=== PATIENT | female | born 1950 | race Caucasian/White ===

== ENCOUNTER → 2017-12-03 15:38 | Outpatient (CLI) | payer BC, SELFPAY ==
[2017-12-03 16:59] LABS: Hematocrit 44.7 % (37-47); Hemoglobin 14.9 g/dl (12.0-15.0); Mean Corp Hgb Conc 33.3 g/gl (32-36); Mean Corpuscular Volume 93.1 fL (81-99); Mean Platelet Vol. 9.1 fl (6.2-12.0); Platelet Count 236 K/mm3 (150-450); RBC Distribution Width CV 13.5 % (11.6-14.6); RBC Distribution Width SD 46.2 fl (35.1-43.9); White Blood Count 5.9 K/mm3 (4.4-11.0)
[2017-12-03 17:07] LABS: Anion Gap 8 (5-15); BUN 14 mg/dL (7-18); Calcium,Total 9.1 mg/dL (8.5-10.1); Chloride 103 mmol/L (98-107); Creatinine, Serum 0.93 mg/dL (0.55-1.02); EST Glomerular Filtration Rate 64 mL/min (>60); Est Glom Filt Rate - Afr Amer 77 mL/min (>60); Glucose 88 mg/dL (74-106); Sodium Level 139 mmol/L (136-145)
[2017-12-03 17:19] LABS: Scan Indicated on CBC? Y/N NO
== END ==
PROVIDERS: Family Provider Nurse Practitioner; PCP Nurse Practitioner; Visit Provider Physician Assistant
DX: Z01.818 Encounter for other preprocedural examination (principal); I10 Essential (primary) hypertension
CPT/HCPCS: 36415; 80048; 85027

== ENCOUNTER → 2018-06-28 13:04 | Outpatient (CLI) | payer BC, SELFPAY ==
--- NOTE | 2018-06-28 13:06 | CDU_ITS ---
[id number] VL^CDU^Carotid Duplex Ultrasound [id number] TAG_START Cardiovascular Services Carotid Duplex Ultrasound [facility] [place] [id number] Ordering Physician: Rickey Sullivan TAG_ENDED TAG_START Name: MOISÉS PADILLA Study Date: 06/28/2018 01:08 PM Patient Location: [facility] : 1950 Gender: Female Age: 67 yrs Ethnicity: C TAG_ENDED Reason For Study: carotid artery disease Rt. Velocities/BP Lt. Velocities/BP Prox CCA 1274.0/13.4 cm/sec. Prox CCA 121.0/12.3 cm/sec. Mid CCA 85.6/15.2 cm/sec. Mid CCA 128.0/18.8 cm/sec. Dist CCA 103.0/14.7 cm/sec. Dist CCA 123.0/15.2 cm/sec. Prox ICA 141.0/14.9 cm/sec. Prox ICA 131.0/27.5 cm/sec. Mid ICA 95.6/21.7 cm/sec. Mid ICA 148.0/29.9 cm/sec. Dist ICA 79.2/14.6 cm/sec. Dist ICA 82.1/22.3 cm/sec. Rt. ICA/CCA = 141.0/85.6=1.6. Lt. ICA/CCA = 148.0/128.0=1.2. Prox ECA 103.0/8.79 cm/sec. Prox ECA 193.0/15.7 cm/sec. Rt. Vert. 31.7/6.19 cm/sec. Lt. Vert. 62.7/11.1 cm/sec. Right Extracranial There is heterogeneous, irregular atherosclerotic plaque noted in the right common carotid artery. There is homogeneous, smooth atherosclerotic plaque noted in the right internal carotid artery. There is homogeneous, smooth atherosclerotic plaque noted in the right external carotid artery. Antegrade flow is noted in the right vertebral artery. Left Extracranial There is heterogeneous, irregular atherosclerotic plaque noted in the left common carotid artery. There is heterogeneous, irregular atherosclerotic plaque noted in the left internal carotid artery. There is heterogeneous, smooth atherosclerotic plaque noted in the left external carotid artery. Antegrade flow is noted in the left vertebral artery. Procedure Carotid Duplex [id number]. Exam performed in department. 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 Smooth plague within the mid left common carotid artery. Calcific plague with shadowing at the proximal left internal carotid with 50-69% stenosis. Normal flow right external carotid Moderate disease left external carotid Patent and antegrade vertebrals bilaterally No change from 05/15/15 TAG_START TAG_ENDED Ordering Physician: Rickey Sulilvan Referring Physician: Rickey Sullivan Performed By: Luisa Gomez, ROLANDO, RVT
== END ==
PROVIDERS: Family Provider Nurse Practitioner; PCP Nurse Practitioner; Referring Provider Internal Medicine Cardiovascular Disease; Visit Provider Internal Medicine Cardiovascular Disease
DX: E78.00 Pure hypercholesterolemia, unspecified (principal); I65.29 Occlusion and stenosis of unspecified carotid artery
CPT/HCPCS: 93880

== ENCOUNTER → 2018-07-21 11:36 | Outpatient (CLI) | payer BC, SELFPAY ==
--- NOTE | 2018-07-21 11:39 | BD_ITS ---
STUDY: DUAL ENERGY X-RAY ABSORPTIOMETRY / DXA REASON FOR EXAM: Female, 67 years old. The patient is postmenopausal. Loss of height. TECHNIQUE: Bone Mineral Density (BMD) measurements of lumbar spine and bilateral hips were obtained. COMPARISON: Comparison is made with prior study dated May 01, 2015. FINDINGS: Lumbar Spine (L1-L4): g/cm2 (1.040) / T-score (-1.0) / Z-score (0.6) Findings are suggestive of normal bone density with a low fracture risk. Left Femur Total: g/cm2 (0.931) / T-score (0.6) / Z-score (0.8) Left Femoral Neck: g/cm2 (0.801) / T-score (-1.7) / Z-score (-0.1) Right Femur Total: g/cm2 (0.912) / T-score (-0.8) / Z-score (0.6) Right Femoral Neck: g/cm2 (0.841) / T-score (-1.4) / Z-score (0.2) The T-Scores on the most recent prior examination were: Lumbar Spine (L1-L4): There has been improvement of bone density since the previous examination. Left Femur Total: which represents a worsening of 1.7%. Right Femur Total: which represents a worsening of 3.3%. BD/Dexa Bone Density Study IMPRESSION: The patient is considered osteopenic as outlined below according to World Vini Organization (WHO) criteria with a moderate fracture risk. There has been worsening of bone density since the previous examination. Reference Information: The T-score is the number of standard deviations above or below the standard which is normal for young adults at their peak bone mineral density. The World Health Organization (WHO) interprets the T-scores as follows: Above -1 Normal bone density Between -1 and -2.5 Osteopenia Equal to / or below -2.5 Osteoporosis As a practical clinical guideline, osteopenia may be graded as follows: Mild -1 through -1.5 Moderate -1.6 through -2.0 Severe -2.1 through -2.4 The Z-score is the number of standard deviations above or below age-matched controls. A Z-score of less than -1.5 would be considered abnormal. References: 1. NIH Osteoporosis and Related Bone Diseases http://www.osteo.org 2. International Society for Clinical Densitometry http://www.iscd.org 3. National Osteoporosis Foundation http://www.nof.org Electronically Signed: Ethan Samuel MD at 8:51 EST Tel [phone], Service support ,
--- NOTE | 2018-07-21 11:39 | BI_ITS ---
MAMMOGRAPHY - BILATERAL SCREENING REASON FOR EXAM: Female, 67 years old. Routine annual screening examination. PERTINENT HISTORY: Non-contributory. TECHNIQUE: Digital bilateral breast ed (3D mammographic acquisition) in the CC and MLO projections. 2-D mediolateral oblique (MLO) and craniocaudad (CC) views of both breasts were obtained. CAD: Full Field Digital Mammography with Computer Added Detection was performed. COMPARISON: Comparison is made with prior study May 01, 2015 and June 20, 2016. FINDINGS: Breast Composition: The breasts are heterogeneously dense, which may obscure small masses. There are no dominant masses or suspicious calcifications. No other significant abnormalities are identified. There has been no significant change since the prior study. BI/SCREENING MAMM (CAD), BILAT IMPRESSION: Stable bilateral screening mammogram. Yearly follow-up mammogram recommended. (A) ASSESSMENT CATEGORY: BIRADS Category 1: Negative. A letter regarding these results will be sent to the patient by the facility within 30 days. Approximately 10% of breast cancers are not detected by mammography. A normal mammogram should not delay biopsy of a clinically suspicious abnormality. [id number] Electronically Signed: Ethan Samuel MD at 15:22 EST Tel [phone], Service support ,
== END ==
PROVIDERS: Family Provider Nurse Practitioner; PCP Nurse Practitioner; Referring Provider Nurse Practitioner; Visit Provider Nurse Practitioner
DX: Z12.31 Encounter for screening mammogram for malignant neoplasm of breast (principal); Z78.0 Asymptomatic menopausal state
CPT/HCPCS: 77063; 77067; 77080

== ENCOUNTER 2018-10-17 16:31 | Inpatient (IN) | payer BC, MEDICARE, SELFPAY ==
[2018-10-17] VITALS (14 sets, daily range): BP systolic 86–155; BP diastolic 44–96; PULSE 74–111; RESP 14–24; TEMP 35.9–37.3; O2SAT 86–98; BMI 25.0; BMI 24.3
--- NOTE | 2018-10-17 16:50 | EKG12_ITS ---
Test Reason : CP Blood Pressure : / mmHG Vent. Rate : 097 BPM Atrial Rate : 097 BPM P-R Int : 112 ms QRS Dur : 136 ms QT Int : 392 ms P-R-T Axes : 070 004 154 degrees QTc Int : 497 ms Normal sinus rhythm Left bundle branch block Abnormal ECG Confirmed by JARRETT PARMAR, [place] ([id number]), metropolitan editor ADIS MARLEY ([id number]) on 10/19/2018 9:05:43 AM Referred By: Confirmed By:[place] FARIAS MD
--- NOTE | 2018-10-17 16:53 | ED.VISSUMM ---
- ER Visit Summary Date of Service: 10/17/18 Chief Complaint: Chest pain and shortness of breath History of Present Illness: The patient is a 68 F who presents with chest pain or shortness of breath that began yesterday. Patient states she feels tightness across her chest. Patient states the pain started in her back and radiated around to the left side of her chest. Patient admits to some nausea. Patient also admits to an episode of diaphoresis last night. Patient admits to a cough but denies any sputum production. Patient states she also felt some lightheadedness and dizziness last night. Patient denies any fevers or chills. Physical Examination: Vital signs are stable. Patient is afebrile. Patient is in no acute distress. Oral mucosa is pink and moist. Neck is supple. Trachea is midline. There is no JVD noted. Heart was regular rate and rhythm. Lungs rhonchi in the bases bilaterally. Abdomen is soft. Bowel sounds are normal. There is mild lower abdominal tenderness. There is no rebound or guarding noted. Skin is warm dry. Cranial nerves II through XII are intact. There are no focal motor or sensory deficits noted. The remaining physical exam is within normal limits. Test Results: EKG showed normal sinus rhythm with a rate of 97. There is a left bundle branch block pattern noted. There are no acute ST or T wave changes noted. It was unchanged compared to previous EKG dated 08/17/2017. CBC shows a white blood cell count of 11.6. Creatinine was slightly elevated at 1.2. Troponin was normal. The remaining labs were essentially within normal limits. Chest x-ray shows a right basilar infiltrate. Emergency Department Course and Treatment: Patient was given a dose of Levaquin. Patient was also given aspirin and sublingual nitroglycerin for her chest pain. The nitroglycerin made no change in her pain. Patient was given a dose of morphine. Case was discussed with Dr. Richey. She will be in to evaluate the patient and admit the patient to her service. Patient and family understood and were agreeable with the plan. All questions were answered. Disposition: Admit to hospital Impression: 1. Community-acquired pneumonia 2. Hypoxia This note was generated with sourceasyation software. It may contain incorrect words, spelling, and punctuation that were not noted in review of the chart prior to signing ED Disposition - Plan for ED Patient: Disposition: Acute Care Hospital [facility] Diagnosis: Community acquired pneumonia, Hypoxia Referrals: Isatu Benson NP-C [Primary Care Provider] -
--- NOTE | 2018-10-17 16:58 | ED.DCSUM_ITS ---
- ER Visit Summary Date of Service: 10/17/18 Chief Complaint: Chest pain and shortness of breath History of Present Illness: The patient is a 68 F who presents with chest pain or shortness of breath that began yesterday. Patient states she feels tightness across her chest. Patient states the pain started in her back and radiated around to the left side of her chest. Patient admits to some nausea. Patient also admits to an episode of diaphoresis last night. Patient admits to a cough but denies any sputum production. Patient states she also felt some lightheadedness and dizziness last night. Patient denies any fevers or chills. Physical Examination: Vital signs are stable. Patient is afebrile. Patient is in no acute distress. Oral mucosa is pink and moist. Neck is supple. Trachea is midline. There is no JVD noted. Heart was regular rate and rhythm. Lungs rhonchi in the bases bilaterally. Abdomen is soft. Bowel sounds are normal. There is mild lower abdominal tenderness. There is no rebound or guarding noted. Skin is warm dry. Cranial nerves II through XII are intact. There are no focal motor or sensory deficits noted. The remaining physical exam is within normal limits. Test Results: EKG showed normal sinus rhythm with a rate of 97. There is a left bundle branch block pattern noted. There are no acute ST or T wave changes noted. It was unchanged compared to previous EKG dated 08/17/2017. CBC shows a white blood cell count of 11.6. Creatinine was slightly elevated at 1.2. Troponin was normal. The remaining labs were essentially within normal limits. Chest x-ray shows a right basilar infiltrate. Emergency Department Course and Treatment: Patient was given a dose of Levaquin. Patient was also given aspirin and sublingual nitroglycerin for her chest pain. The nitroglycerin made no change in her pain. Patient was given a dose of morphine. Case was discussed with Dr. Richey. She will be in to evaluate the patient and admit the patient to her service. Patient and family understood and were agreeable with the plan. All questions were answered. Disposition: Admit to hospital Impression: 1. Community-acquired pneumonia 2. Hypoxia This note was generated with KartMeation software. It may contain incorrect words, spelling, and punctuation that were not noted in review of the chart prior to signing ED Disposition - Plan for ED Patient: Disposition: Acute Care Hospital [facility] Diagnosis: Community acquired pneumonia, Hypoxia Referrals: Isatu Benson NP-C [Primary Care Provider] -
[2018-10-17] MEDS: Albuterol 2.5 MG/3 ML VIAL.NEB. INHALATION (17:05)
[2018-10-17] MEDS: Aspirin 81 MG TAB.CHEW 324 MG PO (17:10)
[2018-10-17 17:11] LABS: Absolute Lymphocyte Count 1.17 X10^3/ul (0.83-4.51); Absolute Neutrophil Count 9.1 X10^3/uL (2.0-7.7); Basophil# 0.03 X10^3/uL; Basophil% 0.3 % (0-1); Eosinophils% 1.7 % (0-5); Hematocrit 43.9 % (37-47); Hemoglobin 14.5 g/dl (12.0-15.0); Lymphocyte # 1.17 X10^3/ul (4.0); Lymphocyte % 10.1 % (19-41); Mean Corpuscular Hgb 30.7 pg (27.0-32.0); Mean Corpuscular Volume 92.8 fL (81-99); Mean Platelet Vol. 9.3 fl (6.2-12.0); Monocyte# 1.09 X10^3/uL; Monocyte% 9.4 % (0-10); Neutrophil # 9.11 X10^3/uL (2.7-7.7); Neutrophil % 78.2 % (47-70); Platelet Count 228 K/mm3 (150-450); RBC Distribution Width CV 13.1 % (11.6-14.6); RBC Distribution Width SD 44.4 fl (35.1-43.9); Red Blood Count 4.73 M/mm3 (4.2-5.4); White Blood Count 11.6 K/mm3 (4.4-11.0)
[2018-10-17 17:14] LABS: POSITIVE COUNT NO; POSITIVE DIFFERENTIAL NO; POSITIVE MORPHOLOGY NO
[2018-10-17 17:19] LABS: Anion Gap 9 (5-15); BUN 16 mg/dL (7-18); BUN/Creat Ratio 13.3 RATIO (10-20); Chloride 104 mmol/L (98-107); EST Glomerular Filtration Rate 47 mL/min (>60); Est Glom Filt Rate - Afr Amer 57 mL/min (>60); Estimated Creatinine Clearance 41.42 ml/min; Glucose 104 mg/dL (74-106); Sodium Level 137 mmol/L (136-145)
--- NOTE | 2018-10-17 17:20 | RAD_ITS ---
STUDY: X-RAY CHEST REASON FOR EXAM: Female, 68 years old. Pain. TECHNIQUE: PA and lateral views of the chest. COMPARISON: March 09, 2017 FINDINGS: There is a paucity of lung markings within the mid and upper lung consistent with emphysema. There are stable prominent interstitial markings. There are nonspecific right basilar opacities. There is a new 1.2 cm left basilar nodular opacity. There is a stable granuloma within the right upper lung. Normal size heart. Normal mediastinum and danii. Normal visualized pulmonary arteries. There is atherosclerotic calcification of the aortic arch with tortuosity. Normal visualized thoracic spine. Normal visualized ribs, clavicles, and shoulders. There are splenic granulomas noted within the visualized upper abdomen. RAD/Chest PA and Lateral IMPRESSION: Nonspecific right basilar opacities may be secondary to underlying edema and/or pneumonia. Indeterminate 1.2 cm left basilar nodular opacity, this may be secondary to a confluence of shadows however consider CT for further characterization for cannot exclude a pulmonary nodule. Emphysema. Electronically Signed: Deepa Bee MD at 17:54 EST Tel , Service support ,
[2018-10-17 18:21] LABS: Bacteria 0 SEEN /hpf (None Seen)
[2018-10-17] MEDS: Morphine 2 MG/ML Syringe IV (18:21)
[2018-10-17 18:37] LABS: Color, Urine Yellow (Yellow); Glucose, Dipstick Normal (Normal); Ketone-Dipstick 15 mg/dl (Negative); Leukocyte Esterase-Dipstick 500 /ul (Negative); Nitrite-Dipstick Negative (Negative); Occult Blood-Urine 25 /ul (Negative); Protein-Dipstick 15 mg/dl (Negative); Urine Bilirubin Dipstick Negative (Negative); Urine Clarity Sl. Cloudy (Clear); Urine Urobilinogen 1 mg/dl (Normal)
[2018-10-17 19:40] LABS: Squamous Epithelial Cells - UA 0-5 SEEN /hpf (5-10)
[2018-10-17 19:41] LABS: Mucous, Urine 1+ /hpf (<or=2+); Red Blood Cells-Urine 0-5 SEEN /hpf (0-5); Transitional Epithelial - Ur 0-5 SEEN /hpf (0-5); White Blood Cells 0-5 SEEN /hpf (0-5)
--- NOTE | 2018-10-17 20:19 | PCM.HP.STD ---
Problem List (1) Community acquired pneumonia Status: Acute Qualifiers: Laterality: left Lung location: lower lobe of lung Qualified Code(s): J18.1 - Lobar pneumonia, unspecified organism (2) Hypoxia Status: Acute (3) HTN (hypertension) Status: Chronic Qualifiers: Hypertension type: essential hypertension Qualified Code(s): I10 - Essential (primary) hypertension (4) SABIHA (obstructive sleep apnea) Status: Chronic (5) Osteoarthritis Status: Chronic Qualifiers: Osteoarthritis location: unspecified site (6) Anxiety and depression Status: Chronic (7) History of carotid endarterectomy Status: Resolved Comment: right (8) Carotid artery stenosis Status: Chronic Qualifiers: Laterality: right Qualified Code(s): I65.21 - Occlusion and stenosis of right carotid artery; I65.21 - Occlusion and stenosis of right carotid artery; I65.21 - Occlusion and stenosis of right carotid artery (9) Hyperlipidemia Status: Chronic Qualifiers: Hyperlipidemia type: pure hypercholesterolemia Qualified Code(s): E78.00 - Pure hypercholesterolemia, unspecified; E78.00 - Pure hypercholesterolemia, unspecified; E78.00 - Pure hypercholesterolemia, unspecified; E78.0 - Pure hypercholesterolemia (10) Chronic obstructive lung disease Status: Chronic Qualifiers: Chronic bronchitis type: unspecified (11) Left bundle branch block Status: Chronic (12) Tobacco user Status: Chronic History of Present Illness Date of Admission: 10/17/18 Chief Complaint: Chest tightness, worse with increased respiratory effort The patient is a 68 y/o F w/ PMHx: CKD stage III, Chronic COPD w/ Tobacco use, SABIHA, GERD, Chronic LBBB, History of thyroid resection w/ resultant Hypothyroidism, Anxiety and Depression, HTN, HLD, OA, Hx recurrent UTIs, Carotid disease s/p CEA, CAD without PCI who presents to the [facility] ED on 10/17/18 with history of ongoing progressively worsening dyspnea, occasional cough but scant sputum, chest tightness and discomfort anteriorly and posteriorly along the bra line which she states is worse with increased respiratory effort and certain movements with associated chills and possibly subjective fevers times 3-4 days. Patient does state that she has been wheezing intermittently in addition to nausea without emesis and decreased appetite over the last 24 hours as well as loose morning stool for the last 3-4 days. Workup in the ED included initially noted 86% on room air and with attempted ambulation patient dropped to 80%, T 98, heart rate 95, BP 108/52, respiratory rate 14, CBC with W BC 11.6, heme globin 14.5, platelet 228 with left shift, BMP with BUN/Cr 16/1.20 (baseline Cr 0.9-1.1), trop < 0.015, UA w/ evidence dehydration otherwise not marked appearing, chest x-ray with nonspecific right basilar opacities possibly secondary to pneumonia, indeterminate 1.2 similar left basilar nodular opacity, EKG w/ without acute evidence of ischemia. In the ED patient administered Levaquin, albuterol, aspirin, morphine, sublingual nitroglycerin. Past Medical History Past Medical History (Chronic Problems): Chronic Problems (Last Reviewed 06/11/18 @ 13:26 by Carolann Navarro) HTN (hypertension) (Chronic) SABIHA (obstructive sleep apnea) (Chronic) Osteoarthritis (Chronic) Anxiety and depression (Chronic) Carotid artery stenosis (Chronic) Hyperlipidemia (Chronic) Chronic obstructive lung disease (Chronic) Left bundle branch block (Chronic) Tobacco user (Chronic) Medical History: Medical History (Last Reviewed 06/11/18 @ 13:26 by Carolann Navarro) Carotid artery stenosis (Chronic) I65.29 Hyperlipidemia (Chronic) E78.5 Chronic obstructive lung disease (Chronic) J44.9 Left bundle branch block (Chronic) I44.7 Tobacco user (Chronic) Z72.0 Allergies azithromycin [From Zithromax] Allergy (Verified 06/11/18 13:23) Hives cortisone [Cortisone] Allergy (Verified 06/11/18 13:23) Swelling erythromycin base [Erythromycin Base] Allergy (Verified 06/11/18 13:23) Other Home Medications: Ambulatory Orders Medication Instructions Recorded ALPRAZolam [Xanax] 0.25 mg PO BID PRN PRN 10/08/13 Escitalopram Oxalate [Lexapro] 20 mg PO DAILY 10/08/13 Ezetimibe [Zetia] 10 mg PO DAILY 10/08/13 Aspirin [Aspirin, Baby] 162 mg PO DAILY@0800 05/16/15 Omeprazole [Prilosec] 20 mg PO DAILY 12/04/15 albuterol sulfate 90 mcg/actuation 90 mcg INHALATION ONCE 08/17/17 breath activated powder inhaler metoprolol succinate ER 25 mg 12.5 mg PO QDAY tab 08/17/17 tablet,extended release 24 hr tiotropium bromide 18 mcg capsule 1 cap INHALATION QDAY 08/17/17 with inhalation device cholecalciferol (vitamin D3) 10,000 unit PO DAILY 06/11/18 10,000 unit tablet levothyroxine 88 mcg tablet 88 mcg PO DAILY 06/11/18 Surgical History: Surgical History (Last Reviewed 06/11/18 @ 13:26 by Carolann Navarro) History of carotid endarterectomy (Resolved) Onset Date: ~2012 Z98.890 right History of sinus surgery Z98.890 Surgical History: - - BL thumb tendinitis surgery, thyroid resection, cholecystectomy, appendectomy, hysterectomy, R CEA, partial colon resection. Psychiatric History: Anxiety, Depression [employer] History: No pertinent [employer] history Lives: With Family - Lives with her daughter. Smoking Status: Current every day smoker Tobacco Use: Cigarettes - 1/2 ppd tobacco usage. Alcohol: None Drugs: None - *Family History Maternal History Items: Cancer - Maternal family history of leiomyosarcoma. Paternal History Items: Cancer - Father with a history of lymphoma. Review of Systems Constitutional: Reports: Anorexia, Chills, Fever, Malaise, Weakness, Fatigue HEENT: Denies: Head Aches, Sinus Congestion, Sinus Drainage Cardiovascular: Reports: Chest Pain, Chest Tightness, Heaviness. Denies: Chest Pressure, Light Headedness, Orthopnea, Palpitations, Syncope Respiratory: Reports: Cough, Pleuritic Pain, Shortness of Breath, Shortness of breath at rest, Shortness of breath upon exertion, Sputum production, Wheezing Gastrointestinal: Reports: Diarrhea, Nausea Genitourinary: Denies: Dysuria Musculoskeletal: Reports: Back Pain, Joint Pain, Shoulder Pain Skin: Denies: Rash, Wounds Neurological: Denies: Numbness, Tingling, Focal weakness Psychiatric: Reports: Anxiety, Depression Hematologic/ Lymphatic: Denies: Easy Bruising, Easy Bleeding VTE Information - Inpt Only VTE Present on Admission: No VTE Mechan Device Prophylaxis: SCD's VTE Pharm Prophylaxis ordered?: Yes Patient Problems: Active and Suspected Problems (Last Reviewed 06/11/18 @ 13:26 by Carolann Navarro) Community acquired pneumonia (Acute) Hypoxia (Acute) Subjective: Seated upright in the ED, does not appear in distress, hypoxia resolved with minimal O2 supplementation however currently at rest. Objective: Physical Examination: General: awake, alert, oriented x 3 and cooperative, seated upright in the ED bed in no overt apparent distress. Skin: normal color, turgor, no icterus, cyanosis. HEENT: AT/NC, EOMI, PERRLA, mildly dry MM, no carotid bruits or JVD noted. Lungs: Severely diffusely diminished breath sounds, poor effort, no rales, rhonchi or wheezing, hypoxia currently resolved with minimal oxygen supplementation, mildly increased respiratory rate. Heart: Regular rate and rhythm; no gallop, rub audible, notes chest discomfort with requested increased respiratory effort. Abdomen: soft, NTTP, ND, normal BS, no HSM. Extremities: no cyanosis, clubbing, or edema. Neurological: patient awake, alert, oriented x 3; cognitive function intact; pupils equally reactive to light and accomodation; cranial nerves II-XII grossly normal, moving all 4 extremities, no focal deficits, strength moderately to severely globally decreased secondary to acute presentation. Psychiatric: affect appears fatigued, no acute evidence of depressive or anxiety feelings. - Physical Exam Vital Signs Temp Pulse Resp BP Pulse Ox 98.0 F 102 H 20 H 111/80 92 10/17/18 18:08 10/17/18 18:08 10/17/18 18:08 10/17/18 18:08 10/17/18 18:08 Oxygen Flow Rate (L/min) 2 Oxygen Delivery Method Nasal Cannula Weight: 154 lb 15.759 oz Body Mass Index (BMI) 25.0 Laboratory Tests Past 24 Hrs 10/17/18 10/17/18 10/17/18 16:35 16:35 18:06 WBC 11.6 H RBC 4.73 Hgb 14.5 Hct 43.9 MCV 92.8 MCH 30.7 MCHC 33.0 RDW 13.1 RDW Differential 44.4 H Plt Count 228 MPV 9.3 Immature Gran % (Auto) 0.300 Neut % (Auto) 78.2 H Lymph % (Auto) 10.1 L [place] % (Auto) 9.4 Eos % (Auto) 1.7 Baso % (Auto) 0.3 Absolute Neuts (auto) 9.1 H Absolute Lymphs (auto) 1.17 Total Counted Not Reportable Sodium 137 Potassium 4.0 Chloride 104 Carbon Dioxide 24.0 Anion Gap 9 BUN 16 Creatinine 1.20 H Estim Creat Clear Calc 41.42 Est GFR (MDRD) Af Amer 57 L Est GFR (MDRD) Non-Af 47 L BUN/Creatinine Ratio 13.3 Glucose 104 Calcium 9.0 Troponin I < 0.015 Urine Color Yellow Urine Clarity Sl. Cloudy Urine pH 5.0 Ur Specific [place] 1.020 Urine Protein 15 H Urine Glucose (UA) Normal Urine Ketones 15 H Urine Occult Blood 25 H Urine Nitrite Negative Urine Bilirubin Negative Urine Urobilinogen 1 H Ur Leukocyte Esterase 500 H Urine RBC 0-5 SEEN Urine WBC 0-5 SEEN Ur Squamous Epith Cells 0-5 SEEN Ur Transition Epith Cell 0-5 SEEN Urine Bacteria 0 SEEN Urine Mucus 1+ Assessment/Plan All Active Problems (Last Reviewed 06/11/18 @ 13:26 by Carolann Navarro) Community acquired pneumonia (Acute) Hypoxia (Acute) History of carotid endarterectomy (Resolved ~2012) Abdominal pain (Acute) The patient is a 68 y/o F w/ PMHx: CKD stage III, Chronic COPD w/ Tobacco use, SABIHA, GERD, Chronic LBBB, History of thyroid resection w/ resultant Hypothyroidism, Anxiety and Depression, HTN, HLD, OA, Hx recurrent UTIs, Carotid disease s/p CEA, CAD without PCI who presents to the [facility] ED on 10/17/18 with history of ongoing progressively worsening dyspnea, occasional cough but scant sputum, chest tightness and discomfort anteriorly and posteriorly along the bra line which she states is worse with increased respiratory effort and certain movements with associated chills and possibly subjective fevers times 3-4 days. (1) Community Acquired Pneumonia w/ associated Hypoxia w/ Acute on Chronic COPD Exacerbation: Workup in the ED included T 98, heart rate 95, BP 108/52, respiratory rate 14, 98% on room air, CBC with W BC 11.6, heme globin 14.5, platelet 228 with left shift, BMP with BUN/Cr 16/1.20 (baseline Cr 0.9-1.1), trop < 0.015, UA w/ evidence dehydration otherwise not marked appearing, chest x-ray with nonspecific right basilar opacities possibly secondary to pneumonia, indeterminate 1.2 similar left basilar nodular opacity, EKG w/ without acute evidence of ischemia. Will admit to NC with telemetry, maintain on oxygen with wean as tolerated to room air, continue ATC duonebs, PRN albuterol, initiate solumedrol 40 mg IV q 8 given patient reported wheezing although examination with no wheezing but no marked air movement noted, maintained on IV Levaquin given allergies to cover atypical as well, HOB, IS parameters w/ pending sputum cultures, respiratory viral panel and urine antigens. Bld cx x 2 obtained in the ED. Will obtain AM oxygenation trial for discharge planning daily. (2) Incidental Pulmonary Nodule: Chest x-ray with nonspecific right basilar opacities possibly secondary to pneumonia, indeterminate 1.2 similar left basilar nodular opacity, given history and prolonged tobacco use, CT chest ordered. (3) Chest Pain: Secondary to #1, atypical, pleuritic, EKG in ED without acute evidence of ischemia, chest x-ray with nonspecific right basilar opacities possibly secondary to pneumonia, indeterminate 1.2 similar left basilar nodular opacity, trop normal x 1. Will place on a monitored bed to assure no acute myocardial infarction with serial cardiac enzymes and EKGs. Continue treatment as noted #1. ASA, NG, morphine. (4) Carotid Disease, CAD: s/p R CEA, no history PCI, maintain on asa, BB, not on statin, FLP in AM. (5) Tobacco Abuse: Encouraged cessation, inpatient consultation per RT, NR if desired. (6) Hypertension: Continue home regimen including metoprolol, PRN hydralazine. (7) Hyperlipidemia: Continue home Zetia regimen, not on statin, FLP in AM. (8) Anxiety and Depression: Continue home Lexapro and Xanax regimen. (9) Hypothyroidism: s/p prior Thyroid resection. Continue home synthroid regimen. (10) SABIHA: CPAP q HS. (11) GERD: PPI. (12) DVT Prophylaxis: SCDs, lovenox.
[2018-10-17] MEDS: levoFLOXacin IV 750 MG/150 ML BAG 100 MG IV (20:45)
[2018-10-17] MEDS: 0.9% Normal Saline 1,000 ML 125 ML IV (22:19)
[2018-10-17] MEDS: guaiFENesin 1,200 MG Tablet 1200 MG PO (22:50)
[2018-10-17] MEDS: 0.9% NaCl Peripheral Flush Adult/Peds IV (22:51)
[2018-10-18] VITALS (15 sets, daily range): BP systolic 113–120; BP diastolic 44–89; PULSE 67–91; RESP 16–20; TEMP 36.6–36.8; O2SAT 92–97
[2018-10-18] MEDS: Escitalopram Oxalate 20 MG Tablet PO ×2 (00:51→21:03)
--- NOTE | 2018-10-18 05:55 | EKG12_ITS ---
Test Reason : AM EKG Blood Pressure : / mmHG Vent. Rate : 072 BPM Atrial Rate : 187 BPM P-R Int : 000 ms QRS Dur : 152 ms QT Int : 454 ms P-R-T Axes : 000 013 179 degrees QTc Int : 497 ms Sinus rhythm with PSVCs Left bundle branch block Abnormal ECG Confirmed by AMRIT PARMAR, CH[place] ([id number]), society editor ADIS MARLEY ([id number] on 10/20/2018 10:21:31 AM Referred By: KELIN Confirmed By:CHINA MARCUS MD
--- NOTE | 2018-10-18 05:55 | CT_ITS ---
STUDY: CT CHEST WITH CONTRAST REASON FOR EXAM: Female, 68 years old. Nodule, pneumonia, hypoxia. RADIATION DOSAGE (If Supplied By Facility): CTDIvol = ( 15.54 ) mGy, DLP = ( 432.73 ) mGycm TECHNIQUE: Transaxial imaging was performed following intravenous administration of Isovue 300 100 IV. Individualized dose optimization techniques were used for this CT. COMPARISON: Chest x-ray October 17, 2018. CT chest September 22, 2017 and November 28, 2015. FINDINGS: Emphysematous changes. Bilateral lower lobe fibrosis. Questionable 0.8 x 0.6 cm noncalcified right apical lung nodule, versus volume averaging axial image 28 series 4 using lung windows. Densely calcified right lower lobe lung nodule.. The heart is not enlarged. Coronary artery calcifications. No pericardial effusion. 1.8 x 1.3 cm precarinal lymph node. 1.9 x 1.0 cm subcarinal lymph node. Additional subcentimeter mediastinal lymph nodes. Normal hilar regions. Normal enhanced pulmonary arteries. There is atherosclerotic calcification of the thoracic aorta. Mild degenerative changes of the thoracic spine. Mild loss of vertebral body height involving multiple mid thoracic vertebral bodies unchanged. Surgical clips in gallbladder fossa. Calcifications in the spleen. CT/Chest WITH Contrast IMPRESSION: No pulmonary embolus or thoracic aortic dissection. Emphysematous changes with bilateral lower lobe fibrosis. Stable mediastinal lymphadenopathy. Questionable 0.8 cm noncalcified right lung nodule versus volume averaging, not present previously. Consider follow-up noncontrast CT in 6-12 months. Coronary artery calcifications. Old granulomatous disease. Electronically Signed: Gabriel Patton MD at 6:59 EST , Service support ,
[2018-10-18] MEDS: Levothyroxine 88 MCG Tablet PO (06:14)
[2018-10-18] MEDS: 0.9% NaCl Peripheral Flush Adult/Peds IV ×3 (06:15→21:07)
[2018-10-18 07:04] LABS: Anion Gap 8 (5-15); BUN 18 mg/dL (7-18); BUN/Creat Ratio 14.6 RATIO (10-20); Calcium,Total 8.8 mg/dL (8.5-10.1); Chloride 104 mmol/L (98-107); Cholesterol 152 mg/dL (200); Creatinine, Serum 1.23 mg/dL (0.55-1.02); EST Glomerular Filtration Rate 46 mL/min (>60); Est Glom Filt Rate - Afr Amer 56 mL/min (>60); Estimated Creatinine Clearance 40.41 ml/min; Glucose 206 mg/dL (74-106); High Density Lipoprotein 42 mg/dL; Potassium 4.2 mmol/L (3.5-5.1); Sodium Level 137 mmol/L (136-145); Triglycerides 70 mg/dL; Very Low Density Lipoprotein 14 mg/dL (5-40)
[2018-10-18 07:11] LABS: Absolute Lymphocyte Count 0.48 X10^3/ul (0.83-4.51); Absolute Neutrophil Count 5.3 X10^3/uL (2.0-7.7); Basophil# 0.01 X10^3/uL; Basophil% 0.2 % (0-1); Eosinophil# 0.01 X10^3/uL; Eosinophils% 0.2 % (0-5); Hematocrit 41.1 % (37-47); Hemoglobin 13.9 g/dl (12.0-15.0); Lymphocyte # 0.48 X10^3/ul (4.0); Mean Corp Hgb Conc 33.8 g/gl (32-36); Mean Corpuscular Hgb 31.9 pg (27.0-32.0); Mean Corpuscular Volume 94.3 fL (81-99); Mean Platelet Vol. 9.3 fl (6.2-12.0); Monocyte# 0.16 X10^3/uL; Monocyte% 2.7 % (0-10); Neutrophil # 5.32 X10^3/uL (2.7-7.7); Neutrophil % 88.7 % (47-70); Platelet Count 226 K/mm3 (150-450); RBC Distribution Width CV 12.9 % (11.6-14.6); RBC Distribution Width SD 43.5 fl (35.1-43.9); Red Blood Count 4.36 M/mm3 (4.2-5.4)
[2018-10-18] MEDS: Ipratropium/Albuterol Sulfate 3 ML AMPUL.NEB INHALATION ×4 (07:13→19:05)
[2018-10-18 07:15] LABS: Differential Indicated SCAN CRITERIA MET; POSITIVE COUNT NO; POSITIVE DIFFERENTIAL YES; POSITIVE MORPHOLOGY NO
[2018-10-18] MEDS: Aspirin 81 MG TAB.CHEW PO (07:45)
--- NOTE | 2018-10-18 09:10 | PCM.PN.HOSP ---
Patient Problems: Active and Suspected Problems (Last Reviewed 06/11/18 @ 13:26 by Carolann Navarro) Community acquired pneumonia (Acute) Hypoxia (Acute) Subjective: Patient was seen and examined. No acute events overnight. Admitted yesterday with shortness of breath. Denied any fever or chills. She was producing yellow sputum yesterday, minimal however today, whitish in color. She complains of pain in both groins, chronic, worsening over the past 1 month. Pain is worse with ambulation, radiates down thighs. She denies any history of x-ray of the pelvis. Vitals/I&O's: Vital Signs Temp Pulse Resp BP Pulse Ox 98.0 F 69 18 120/52 L 94 10/18/18 07:31 10/18/18 07:31 10/18/18 07:32 10/18/18 07:31 10/18/18 07:31 Oxygen Flow Rate (L/min) 4 Oxygen Delivery Method Nasal Cannula Weight: 69.4 kg Body Mass Index (BMI) 24.3 Intake and Output for Last 24 Hours 10/16/18 10/17/18 10/18/18 23:59 23:59 23:59 Intake Total 1203 / 1203 Output Total 300 / 300 Balance 903 / 903 General: Alert, Oriented x3, Cooperative, No apparent distress, - - 4 L of oxygen HEENT: Atraumatic, PERRLA, EOMI, Normocephalic Oral: Moist Mucosa Neck: Supple Lungs: Normal air movement, Diminished Cardiovascular: Regular rate, Regular Rhythm, Normal S1, Normal S2, No murmurs Abdomen: Bowel Sounds Present, Soft, Non Tender, Non-Distended, No Hepato-splenomegaly Extremities: No edema Skin: No rashes Musculoskeletal: No Tenderness to Palpation of Joints or Extremities Lymphatic: No Cervical, Supraclavicular, or Inguinal Adenopathy Neurological: Cranial nerves II-XII grossly intact, Neuro grossly intact Psych/Mental Status: Normal Affect, Appropriate Microbiology Past 72 Hours 10/17/18 18:06 Urine, Clean Catch Legionella Antigen - Final 10/17/18 18:06 Urine, Clean Catch Streptococcus pneumoniae Antigen (M - Final Laboratory Results 10/17/18 16:35: WBC 11.6 H, RBC 4.73, Hgb 14.5, Hct 43.9, MCV 92.8, MCH 30.7, MCHC 33.0, RDW 13.1, RDW Differential 44.4 H, Plt Count 228, MPV 9.3, Immature Gran % (Auto) 0.300, Neut % (Auto) 78.2 H, Lymph % (Auto) 10.1 L, Garza % (Auto) 9.4, Eos % (Auto) 1.7, Baso % (Auto) 0.3, Absolute Neuts (auto) 9.1 H, Absolute Lymphs (auto) 1.17, Total Counted Not Reportable 10/17/18 16:35: Sodium 137, Potassium 4.0, Chloride 104, Carbon Dioxide 24.0, Anion Gap 9, BUN 16, Creatinine 1.20 H, Estim Creat Clear Calc 41.42, Est GFR (MDRD) Af Amer 57 L, Est GFR (MDRD) Non-Af 47 L, BUN/Creatinine Ratio 13.3, Glucose 104, Calcium 9.0, Troponin I < 0.015 10/17/18 16:35: Magnesium 2.0 10/17/18 18:06: Urine Color Yellow, Urine Clarity Sl. Cloudy, Urine pH 5.0, Ur Specific [place] 1.020, Urine Protein 15 H, Urine Glucose (UA) Normal, Urine Ketones 15 H, Urine Occult Blood 25 H, Urine Nitrite Negative, Urine Bilirubin Negative, Urine Urobilinogen 1 H, Ur Leukocyte Esterase 500 H, Urine RBC 0-5 SEEN, Urine WBC 0-5 SEEN, Ur Squamous Epith Cells 0-5 SEEN, Ur Transition Epith Cell 0-5 SEEN, Urine Bacteria 0 SEEN, Urine Mucus 1+ 10/18/18 00:25: Troponin I < 0.015 10/18/18 03:05: Troponin I < 0.015 10/18/18 06:24: WBC 6.0, RBC 4.36, Hgb 13.9, Hct 41.1, MCV 94.3, MCH 31.9, MCHC 33.8, RDW 12.9, RDW Differential 43.5, Plt Count 226, MPV 9.3, Immature Gran % (Auto) 0.200, Neut % (Auto) 88.7 H, Lymph % (Auto) 8.0 L, Garza % (Auto) 2.7, Eos % (Auto) 0.2, Baso % (Auto) 0.2, Absolute Neuts (auto) 5.3, Absolute Lymphs (auto) 0.48 L, Total Counted Not Reportable 10/18/18 06:24: Sodium 137, Potassium 4.2, Chloride 104, Carbon Dioxide 25.0, Anion Gap 8, BUN 18, Creatinine 1.23 H, Estim Creat Clear Calc 40.41, Est GFR (MDRD) Af Amer 56 L, Est GFR (MDRD) Non-Af 46 L, BUN/Creatinine Ratio 14.6, Glucose 206 H, Calcium 8.8, Troponin I < 0.015, Triglycerides 70, Cholesterol 152, LDL Cholesterol 96, VLDL Cholesterol 14, HDL Cholesterol 42 Current Medications Acetaminophen (Tylenol) 650 mg PO Q4H PRN PRN PRN Reason: FEVER Hydrocodone Bitart/Acetaminophen ([place] 5mg-325mg) 1 - 2 tablet PO Q6H PRN PRN PRN Reason: Moderate-severe pain Al Hydroxide/Mg Hydroxide (Mylanta Ii) 30 ml PO Q6H PRN PRN PRN Reason: Gastric burning Albuterol Sulfate (Ventolin Aerosols) 2.5 mg INHALATION Q2H PRN PRN PRN Reason: SHORTNESS OF BREATH Albuterol/Ipratropium (Duoneb) 3 ml INHALATION Q4HWA.RT [facility] Last Admin: 10/18/18 07:13 Dose: 3 ml Alprazolam (Xanax) 0.25 mg PO BID PRN PRN PRN Reason: ANXIETY Aspirin (Aspirin, Baby) 81 mg PO DAILY@0800 [facility] Last Admin: 10/18/18 07:45 Dose: 81 mg Ezetimibe (Zetia) 10 mg PO DAILY [facility] Enoxaparin Sodium (Lovenox) 40 mg SC DAILY@1000 [facility] Escitalopram Oxalate (Lexapro) 20 mg PO QHS [facility] Guaifenesin (Mucinex) 1,200 mg PO BID [facility] Last Admin: 10/17/18 22:50 Dose: 1,200 mg Hydralazine HCl (Apresoline Iv) 10 mg IV Q4H PRN PRN PRN Reason: SBP > 160 Sodium Chloride () 1,000 mls @ 125 mls/hr IV .Q8H [facility] Last Admin: 10/17/18 22:19 Dose: 125 mls/hr Levofloxacin (Levaquin Iv) 750 mg in 150 mls @ 100 mls/hr IV Q48 [facility] Sodium Chloride () 250 mls @ 15 mls/hr IV .[id number] PRN PRN Reason: SALINE FLUSH Levothyroxine Sodium (Synthroid) 88 mcg PO DAILY@0600 [facility] Last Admin: 10/18/18 06:14 Dose: 88 mcg Magnesium Hydroxide (Milk Of Magnesia) 30 ml PO DAILY PRN PRN PRN Reason: Constipation Methylprednisolone (Solu-Medrol) 40 mg IV Q8 [facility] Last Admin: 10/18/18 06:14 Dose: 40 mg Metoprolol Succinate (Toprol Xl (Beta Merlin)) 12.5 mg PO DAILY [facility] Morphine Sulfate () 1 - 2 mg IV Q4H PRN PRN PRN Reason: PAIN Nicotine (Nicoderm Cq (Pbkc)) 14 mg TRANSDERM. DAILY [facility] Last Admin: 10/17/18 22:50 Dose: 14 mg Nitroglycerin (Nitrostat) 0.4 mg SUBLINGUAL Q5M PRN PRN Reason: Angina pain Nutritional Formula (Lactose Free) (Ensure Enlive) 120 ml PO 4X/DAY [facility] Ondansetron HCl (Zofran) 4 mg IV Q8H PRN PRN PRN Reason: NAUSEA/VOMITING Pantoprazole Sodium (Protonix) 20 mg PO DAILY [facility] Sodium Chloride () 5 - 15 ml IV UD PRN PRN Reason: SALINE FLUSH Last Admin: 10/18/18 06:15 Dose: 10 ml Medical Necessity - Tobacco Use Smoking Status: Current every day smoker Tobacco Use: Cigarettes Assessment/Plan All Active Problems (Last Reviewed 06/11/18 @ 13:26 by Carolann Navarro) Community acquired pneumonia (Acute) Hypoxia (Acute) History of carotid endarterectomy (Resolved ~2012) Abdominal pain (Acute) 68-year-old female with multiple comorbidities including COPD, not on home oxygen, nicotine dependence who comes in with complaints of shortness of breath and chest tightness. 1. Acute hypoxic respiratory failure secondary to acute COPD exacerbation, admitting SPO2 in the ED was 86% on room air, patient is currently on 4 L of oxygen, will continue on oxygen, encourage use of incentive spirometer and PEEP, continue treatment 2. Community acquired pneumonia ruled out from negative CT of the chest 3. Acute COPD exacerbation, no pneumonia on x-ray, respiratory panel is negative, urine legionella and streptococcal antigen is negative On IV steroids, breathing treatments, continue on IV Levaquin 4. Incidental pulmonary nodules, confirmed on CT of the chest, needs to follow-up in the outpatient 5. Chest pain, musculoskeletal, troponin series has been negative, will continue on tylenol prn 6. Nicotine dependence, on replacement 7. Rest of Chronic medical conditions-hypertension, hyperlipidemia, carotid artery disease, CAD, status post CEA, anxiety/depression, hypothyroidism, SABIHA, GERD are stable 8. DVT PPx- Lovenox SC Code Visit Inpatient E&M: [id number] Subs Hosp L2
[2018-10-18] MEDS: Enoxaparin 40 MG/0.4 ML Syringe SC (09:17)
[2018-10-18] MEDS: Metoprolol(XL)Succ 25 MG Tablet 12.5 MG PO (09:18)
[2018-10-18] MEDS: Pantoprazole Sodium 20 MG Tablet PO (09:21)
[2018-10-18] MEDS: guaiFENesin 1,200 MG Tablet 1200 MG PO ×2 (09:21→21:04)
[2018-10-18] MEDS: Ezetimibe 10 MG Tablet PO (09:30)
--- NOTE | 2018-10-18 09:37 | RAD_ITS ---
STUDY: X-RAY - PELVIS REASON FOR EXAM: Female, 68 years old. Left hip pain. TECHNIQUE: One view of the pelvis was obtained. COMPARISON: None. FINDINGS: There is a non-specific bowel gas pattern. Contrast is seen within the urinary bladder from a prior enhanced CT scan examination. There are atherosclerotic vascular calcifications. Normal bilateral iliac wings, sacroiliac joints and visualized sacrum. Normal visualized bilateral superior and inferior pubic rami. There is narrowing with sclerosis of the pubic symphysis. Normal ischial tuberosities. Normal visualized right femoral head. Normal right acetabulum. Normal right hip joint. Normal visualized left femoral head. Normal left acetabulum. Normal left hip joint. RAD/Pelvis 1 or 2 Views IMPRESSION: No acute abnormality is seen. Electronically Signed: Ethan Samuel MD at 13:47 EST , Service support ,
--- NOTE | 2018-10-18 11:25 | CASEMGMT ---
RN MONISHA Face to Face with patient for initial transition planning/care coordination assessment. RN CM introduced self and role at [facility]. Patient lying in bed, alert and oriented. Patient willing to participate in assessment and is able to answer all questions appropriately. Care providers, pharmacy, and demographics verified. Patient wishes to discharge home, denies need for home health at this time. Patient states she has no further needs or concerns at this time. CM to follow for discharge planning needs that may arise. PCP: Isatu Benson BALING MACHINE TENDER Specialists: Laurie, tunnel drier operator; Carrie, oncology [facility] Insurance: [employer] Prescription Benefit: Yes Living Will/HPOA: No living will, think daughter Maria Wang is HPOA LNOK: Daughter Living Arrangements: Patient lives with daughter in mobile home with 2 steps to enter the home. Patient is independent and still works. Transportation: Self/daughter DME/HHC: Patient states she had Cpap at home. Denies home oxygen, bipap, or nebulizer at home. Will monitor patient for need for home oxygen. Denies previous SNF or HHC Disposition Plan: Patient to discharge home with family support and follow-up plans in place. Marianela DONOVAN, RN, CM
[2018-10-18] MEDS: Ondansetron 4 MG/2 ML Vial IV (21:03)
[2018-10-19] VITALS (9 sets, daily range): BP systolic 121–134; BP diastolic 51–70; PULSE 64–83; RESP 16–18; TEMP 36.7–36.8; O2SAT 90–97
[2018-10-19] MEDS: HYDROcodone Bitartrate/Apap 5/325 Tablet PO (01:16)
[2018-10-19] MEDS: Levothyroxine 88 MCG Tablet PO (06:17)
[2018-10-19] MEDS: 0.9% NaCl Peripheral Flush Adult/Peds IV (06:18)
[2018-10-19] MEDS: Ipratropium/Albuterol Sulfate 3 ML AMPUL.NEB INHALATION ×2 (07:28→11:14)
[2018-10-19] MEDS: Aspirin 81 MG TAB.CHEW PO (08:56)
[2018-10-19] MEDS: levoFLOXacin IV 750 MG/150 ML BAG 100 MG IV (09:38)
[2018-10-19] MEDS: Enoxaparin 40 MG/0.4 ML Syringe SC (09:38)
[2018-10-19] MEDS: guaiFENesin 1,200 MG Tablet 1200 MG PO (09:38)
[2018-10-19] MEDS: Ezetimibe 10 MG Tablet PO (09:39)
[2018-10-19] MEDS: Metoprolol(XL)Succ 25 MG Tablet 12.5 MG PO (09:39)
[2018-10-19] MEDS: Pantoprazole Sodium 20 MG Tablet PO (09:43)
--- NOTE | 2018-10-19 10:41 | DCINST_ITS ---
- Discharge Diagnoses Current Active Problems: Current Active and Chronic Problems (Last Reviewed 06/11/18 @ 13:26 by Carolann Navarro) Community acquired pneumonia (Acute) Hypoxia (Acute) HTN (hypertension) (Chronic) SABIHA (obstructive sleep apnea) (Chronic) Osteoarthritis (Chronic) Anxiety and depression (Chronic) Reason(s) for Visit for Discharge Instructions: COPD exacerbation You will use the following diet at home:: Calorie/Carbohydrate Controlled (specify 1200, 1400, etc), Cardiac Your food should be the consistency of: Regular Your liquids should be the consistency of: Regular/Thin Discharge Activity: Return to Normal Activity Additional Instructions: Complete your antibiotics as prescribed. Use your inhaler as needed for persistent cough or shortness of breath. Follow-up with your primary doctor within 1-2 weeks for repeat blood work on your kidney function. You are strongly advised to quit smoking. Follow-up with Dr. Huizar for lung function testing 6-8 weeks and also for your sleep apnea machine. Allergies/Adverse Reactions: Allergies azithromycin [From Zithromax] Allergy (Verified 06/11/18 13:23) Hives cortisone [Cortisone] Allergy (Verified 06/11/18 13:23) Swelling erythromycin base [Erythromycin Base] Allergy (Verified 06/11/18 13:23) Other Medications to take at Discharge ALPRAZolam [Xanax] 0.25 mg PO BID PRN PRN 10/08/13 Escitalopram Oxalate [Lexapro] 20 mg PO QHS 10/08/13 Ezetimibe [Zetia] 10 mg PO DAILY 10/08/13 Aspirin [Aspirin, Baby] 81 mg PO DAILY@0800 05/16/15 Omeprazole [Prilosec] 40 mg PO DAILY 12/04/15 metoprolol succinate ER 25 mg tablet,extended release 24 hr 12.5 mg PO QDAY tab 08/17/17 tiotropium bromide 18 mcg capsule with inhalation device 1 cap INHALATION QDAY 08/17/17 cholecalciferol (vitamin D3) 10,000 unit tablet 1,000 unit PO DAILY 06/11/18 levothyroxine 88 mcg tablet 88 mcg PO DAILY 06/11/18 Metaxalone [Skelaxin] 800 mg PO BID 10/17/18 Acetaminophen [Tylenol Tablet] 650 mg PO Q4H PRN PRN tablet 10/19/18 Albuterol Inhaler [Ventolin Hfa] 1 - 2 puff INHALATION Q4H PRN PRN #1 inhaler 10/19/18 Benzonatate [Tessalon Perle] 100 mg PO 4X/DAY PRN PRN #30 capsule 10/19/18 Ensure Enlive 120 ml PO 4X/DAY #120 liquid 10/19/18 Guaifenesin [Mucinex] 1,200 mg PO BID #20 tablet 10/19/18 Nicotine [Nicoderm] 14 mg TRANSDERM. DAILY #30 patch 10/19/18 levoFLOXacin tablet [Levaquin tablet] 750 mg PO QODAY #3 tablet 10/19/18 Primary Care Physician: Isatu Benson NP-C [Primary Care Provider] - Please follow up with your Primary Care Physician in: within 1-2 weeks Test Results: Test results from this visit will be discussed in further detail at your follow- up appointment, if applicable. Proposed Discharge Date: 10/19/18
--- NOTE | 2018-10-19 10:45 | DS.PCM_ITS ---
Discharge Date and Diagnosis Date of Admission: 10/17/18 Date of Discharge: 10/19/18 - Primary Discharge Diagnosis Active and Suspected Problems (Last Reviewed 06/11/18 @ 13:26 by Carolann Navarro) Acute hypoxic respiratory failure Community-acquired pneumonia ruled out COPD exacerbation Incidental pulmonary nodules Musculoskeletal chest pain Nicotine dependence - Secondary Discharge Diagnosis Chronic Problems (Last Reviewed 06/11/18 @ 13:26 by Carolann Navarro) HTN (hypertension) (Chronic) SABIHA (obstructive sleep apnea) (Chronic) Osteoarthritis (Chronic) Anxiety and depression (Chronic) Carotid artery stenosis (Chronic) Hyperlipidemia (Chronic) Chronic obstructive lung disease (Chronic) Left bundle branch block (Chronic) Tobacco user (Chronic) Hospital Course and Treatment Imaging Results: Clinical Impression(s) from Imaging Studies Chest X-Ray 10/17/18 17:20 IMPRESSION: Nonspecific right basilar opacities may be secondary to underlying edema and/or pneumonia. Indeterminate 1.2 cm left basilar nodular opacity, this may be secondary to a confluence of shadows however consider CT for further characterization for cannot exclude a pulmonary nodule. Emphysema. Electronically Signed: Deepa Bee MD at 17:54 EST Tel , Service support , Chest CT 10/18/18 05:55 IMPRESSION: No pulmonary embolus or thoracic aortic dissection. Emphysematous changes with bilateral lower lobe fibrosis. Stable mediastinal lymphadenopathy. Questionable 0.8 cm noncalcified right lung nodule versus volume averaging, not present previously. Consider follow-up noncontrast CT in 6-12 months. Coronary artery calcifications. Old granulomatous disease. Electronically Signed: Gabriel Patton MD at 6:59 EST , Service support , Pelvis X-Ray 10/18/18 09:37 IMPRESSION: No acute abnormality is seen. Electronically Signed: Ethan Samuel MD at 13:47 EST , Service support , None Operations: None Procedures: None Summary of Care Provided: 68-year-old female with multiple comorbidities including COPD, not on home oxygen, nicotine dependence who comes in with complaints of shortness of breath and chest tightness. Patient's initially chest x-ray was suggestive of possible right-sided pneumonia. CTA of the chest did not confirm pneumonia. Respiratory panel was negative Patient was started on IV fluids, IV Levaquin, breathing treatments as well as IV Solu-Medrol. She continued to improve. She was initially hypoxic and was on 4 L of oxygen. She improved remarkably over the first 24 hours of admission and was down to room air at the end of the first day. She was seen the next day and did not qualify for oxygen on ambulation. She will continue to have significant cough, nonproductive. She was discharged on oral Levaquin, Ventolin inhaler. She knows to follow-up with her primary care doctor and compensation and benefits advisor for the lung nodules. She also knows she needs to repeat her blood work especially her kidney function tests within a week with a primary care doctor. She was strongly encouraged to stop smoking. Nicotine patches were ordered for her. She was strongly encouraged also to use incentive spirometer and PEEP Patient was discharged in a stable condition Subjective: Patient was seen and examined. Appears very comfortable on room air. Denies any fever or chills. Had her right IV access infiltrated. She complains of cough spasms with chest discomfort after coughing. Objective: Physical exam: General: Alert, Oriented x3, Cooperative, No apparent distress, on room air HEENT: Atraumatic, PERRLA, EOMI, Normocephalic Oral: Moist Mucosa Neck: Supple Lungs: Crackles heard at the lung bases more on the right Cardiovascular: Regular rate, Regular Rhythm, Normal S1, Normal S2, No murmurs Abdomen: Bowel Sounds Present, Soft, Non Tender, Non-Distended, No Hepato- splenomegaly Extremities: No edema Skin: No rashes Musculoskeletal: No Tenderness to Palpation of Joints or Extremities Lymphatic: No Cervical, Supraclavicular, or Inguinal Adenopathy Neurological: Cranial nerves II-XII grossly intact, Neuro grossly intact Psych/Mental Status: Normal Affect, Appropriate - Physical Exam Vital Signs Temp Pulse Resp BP Pulse Ox 98.1 F 77 18 121/70 H 93 10/19/18 08:42 10/19/18 09:39 10/19/18 08:50 10/19/18 08:42 10/19/18 08:42 Oxygen Flow Rate (L/min) 2 Oxygen Delivery Method Nasal Cannula Weight: 69.4 kg Body Mass Index (BMI) 24.3 Intake and Output for Last 24 Hours 10/17/18 10/18/18 10/19/18 23:59 23:59 23:59 Intake Total 1203 / 1203 900 / 900 Output Total 300 / 300 600 / 600 Balance 903 / 903 300 / 300 Microbiology Past 72 Hours 10/17/18 23:55 Respiratory Panel (PCR) - Final Mucosa - Nasopharyngeal 10/17/18 18:06 Legionella Antigen - Final Urine, Clean Catch 10/17/18 18:06 Streptococcus pneumoniae Antigen (M - Final Urine, Clean Catch Discharge Diet: Low fat/ Low Cholesterol, 2000 mg Sodium Diet Discharge Activity: Return to Normal Activity Home Medications: Medications to take at Discharge ALPRAZolam [Xanax] 0.25 mg PO BID PRN PRN 10/08/13 Escitalopram Oxalate [Lexapro] 20 mg PO QHS 10/08/13 Ezetimibe [Zetia] 10 mg PO DAILY 10/08/13 Aspirin [Aspirin, Baby] 81 mg PO DAILY@0800 05/16/15 Omeprazole [Prilosec] 40 mg PO DAILY 12/04/15 metoprolol succinate ER 25 mg tablet,extended release 24 hr 12.5 mg PO QDAY tab 08/17/17 tiotropium bromide 18 mcg capsule with inhalation device 1 cap INHALATION QDAY 08/17/17 cholecalciferol (vitamin D3) 10,000 unit tablet 1,000 unit PO DAILY 06/11/18 levothyroxine 88 mcg tablet 88 mcg PO DAILY 06/11/18 Metaxalone [Skelaxin] 800 mg PO BID 10/17/18 Acetaminophen [Tylenol Tablet] 650 mg PO Q4H PRN PRN tablet 10/19/18 Albuterol Inhaler [Ventolin Hfa] 1 - 2 puff INHALATION Q4H PRN PRN #1 inhaler 10/19/18 Benzonatate [Tessalon Perle] 100 mg PO 4X/DAY PRN PRN #30 capsule 10/19/18 Ensure Enlive 120 ml PO 4X/DAY #120 liquid 10/19/18 Guaifenesin [Mucinex] 1,200 mg PO BID #20 tablet 10/19/18 Nicotine [Nicoderm] 14 mg TRANSDERM. DAILY #30 patch 10/19/18 Prednisone 10 mg PO DAILY #30 tablet 10/19/18 levoFLOXacin tablet [Levaquin tablet] 750 mg PO QODAY #3 tablet 10/19/18 Following Prescrptions Were Given to Patient: Albuterol Inhaler [Ventolin Hfa] 1 - 2 puff INHALATION Q4H PRN PRN #1 inhaler PRN Reason: Sob &/Or Wheezing Benzonatate [Tessalon Perle] 100 mg PO 4X/DAY PRN PRN #30 capsule PRN Reason: Cough levoFLOXacin tablet [Levaquin tablet] 750 mg PO QODAY #3 tablet Nicotine [Nicoderm] 14 mg TRANSDERM. DAILY #30 patch Prednisone 10 mg PO DAILY #30 tablet Guaifenesin [Mucinex] 1,200 mg PO BID #20 tablet Ensure Enlive 120 ml PO 4X/DAY #120 liquid Primary Care Physician: Isatu Benson NP-C [Primary Care Provider] - Please follow up with your Primary Care Physician in: within 1-2 weeks Disposition: Home Minutes spent on discharge:: 40 Patient Condition:: Stable Medical Necessity - Tobacco Use Smoking Status: Current every day smoker Tobacco Use: Cigarettes Meaningful Use Info Meaningful Use Diagnoses (Choose all that apply): None applicable Code Visit Inpatient E&M: 34745 Disch Hosp
[2018-10-19] MEDS: levoFLOXacin 750 MG Tablet PO (11:58)
--- NOTE | 2018-10-19 13:17 | CPS ---
Patient working on PEP therapy on own.
--- NOTE | 2018-10-21 16:23 | CASEMGMT ---
[facility] DC PHONE CALL DC DATE: 10/19/18 DC DISPOSITION: Home LACE/STRATA: 06/02 Attempted call. Busy signal.
== END 2018-10-19 13:40 | disposition home or self-care (01) | DRG 189 ==
LOC: ED 20:29 → MS3 21:08
PROVIDERS: Admitting Provider Family Medicine; Emergency Provider Emergency Medicine; Family Provider Nurse Practitioner; PCP Nurse Practitioner; Visit Provider Internal Medicine
DX: J96.01 Acute respiratory failure with hypoxia (principal); J44.1 Chronic obstructive pulmonary disease with (acute) exacerbation; E89.0 Postprocedural hypothyroidism; F17.210 Nicotine dependence, cigarettes, uncomplicated; E78.5 Hyperlipidemia, unspecified; F41.9 Anxiety disorder, unspecified; F32.9 Major depressive disorder, single episode, unspecified; I25.10 Atherosclerotic heart disease of native coronary artery without angina pectoris; G47.33 Obstructive sleep apnea (adult) (pediatric); R07.89 Other chest pain; K21.9 Gastro-esophageal reflux disease without esophagitis; I10 Essential (primary) hypertension; R91.8 Other nonspecific abnormal finding of lung field; I44.7 Left bundle-branch block, unspecified; M19.90 Unspecified osteoarthritis, unspecified site; Z79.899 Other long term (current) drug therapy
CPT/HCPCS: 36415; 71046; 71260; 72170; 80048; 80061; 81001; 83735; 84484; 85025; 87449; 87633; 93005; 94640; 94667; 94668; 97802; 99285; 99406; J7030; Q9967; A4216; J2405

== ENCOUNTER → 2018-10-29 13:09 | Outpatient (CLI) | payer BC, SELFPAY ==
[2018-10-17 21:48] VITALS: BMI 24.3
--- NOTE | 2018-10-29 13:45 | RAD_ITS ---
STUDY: X-RAY CHEST REASON FOR EXAM: Female, 68 years old. Shortness of breath and weakness. Diagnosed with pneumonia October 18. TECHNIQUE: PA and lateral views of the chest. COMPARISON: PA and lateral chest x-ray October 17, 2018; CT chest with IV contrast October 18, 2018. FINDINGS: Calcified granuloma in the upright lung again noted, and mild curvilinear densities of subsegmental atelectasis or scarring in the lung bases are unchanged. Relative apical lucency may reflect the upper lung predominant emphysematous changes noted on CT. No new infiltrate. There is no demonstrated pleural abnormality. Normal size heart. Normal mediastinum and danii. Normal visualized pulmonary arteries. There is atherosclerotic calcification of the aortic arch. There are stable mild degenerative changes of the visualized thoracic spine. Normal visualized ribs, clavicles, and shoulders. Surgical clips of prior cholecystectomy again seen in the right upper quadrant of the abdomen. RAD/Chest PA and Lateral IMPRESSION: Stable x-ray examination of the chest since October 17, 2018. No distinctly pneumonic infiltrate. Electronically Signed: Austin Malone MD at 11:12 EST , Service support ,
== END ==
PROVIDERS: Family Provider Nurse Practitioner; PCP Nurse Practitioner; Referring Provider Nurse Practitioner; Visit Provider Nurse Practitioner
DX: J43.9 Emphysema, unspecified (principal)
CPT/HCPCS: 71046

== ENCOUNTER → 2018-11-03 17:21 | Outpatient (CLI) | payer BC, SELFPAY ==
[2018-10-17 21:48] VITALS: BMI 24.3
--- NOTE | 2018-11-03 17:23 | US_ITS ---
PROCEDURES: ULTRASOUND AORTA REASON FOR EXAM: Female, 68 years old. Epigastric pain. History of aortic aneurysm. TECHNIQUE: Ultrasound evaluation of the aorta was performed with real-time and static felder-scale imaging. COMPARISON: CT dated 09/03/2016. FINDINGS: There is atherosclerotic plaque noted throughout the aorta. Aorta measures: Proximal 1.5 x 1.7 cm. Middle 1.7 x 1.5 cm. Distal 3.3 x 2.5 cm. Right iliac artery measures: 0.7 cm. Left iliac artery measures: 0.7 cm. There is no demonstrated aneurysm.. US/Aorta IMPRESSION: Atherosclerotic calcification noted throughout the aorta. 3.3 cm infrarenal abdominal aortic aneurysm. Please note that ultrasound cannot exclude aortic aneurysm rupture or aortic dissection. Electronically Signed: Shlomo Shannon, at 18:14 EST Tel , Service support ,
== END ==
PROVIDERS: Family Provider Nurse Practitioner; PCP Nurse Practitioner; Referring Provider Nurse Practitioner; Visit Provider Nurse Practitioner
DX: R10.13 Epigastric pain (principal)
CPT/HCPCS: 76775

== ENCOUNTER → 2018-11-15 14:02 | Outpatient (CLI) | payer BC, MEDICARE, SELFPAY ==
[2018-10-17 21:48] VITALS: BMI 24.3
--- NOTE | 2018-11-15 14:07 | RAD_ITS ---
STUDY: X-RAY - PELVIS REASON FOR EXAM: Female, 68 years old. Joint pain, arthritis TECHNIQUE: One view of the pelvis was obtained. COMPARISON: 10/18/2018 FINDINGS: There is a non-specific bowel gas pattern. There are atherosclerotic vascular calcifications of the pelvic arteries. There is narrowing with cortical sclerosis and osteophyte formation of the sacroiliac joint consistent with degenerative osteoarthritic changes. Normal visualized bilateral superior and inferior pubic rami. There is narrowing with sclerosis of the pubic symphysis. Normal visualized right femoral head. Normal right acetabulum. There is mild articular joint space narrowing of the right hip. Normal visualized left femoral head. Normal left acetabulum. There is mild articular joint space narrowing of the left hip. RAD/Pelvis 1 or 2 Views IMPRESSION: Degenerative changes. Electronically Signed: Vera Mcleod MD at 7:59 EDT , Service support ,
== END ==
PROVIDERS: Family Provider Nurse Practitioner; PCP Nurse Practitioner; Visit Provider Internal Medicine Rheumatology
DX: M06.4 Inflammatory polyarthropathy (principal); M15.9 Polyosteoarthritis, unspecified; M50.30 Other cervical disc degeneration, unspecified cervical region; K21.9 Gastro-esophageal reflux disease without esophagitis; F41.9 Anxiety disorder, unspecified; J44.9 Chronic obstructive pulmonary disease, unspecified; E03.2 Hypothyroidism due to medicaments and other exogenous substances; I44.7 Left bundle-branch block, unspecified; G47.33 Obstructive sleep apnea (adult) (pediatric)
CPT/HCPCS: 72170

== ENCOUNTER → 2018-11-19 13:50 | Outpatient (CLI) | payer BC, MEDICARE, SELFPAY ==
[2018-10-17 21:48] VITALS: BMI 24.3
[2018-11-19 15:44] LABS: ALB/GLOB Ratio 0.9 RATIO (0.9-2.4); AST(SGOT) 16 U/L (15-37); Absolute Lymphocyte Count 1.29 X10^3/ul (0.83-4.51); Absolute Neutrophil Count 5.9 X10^3/uL (2.0-7.7); Alanine Aminotransfer ALT/SGPT 16 U/L (13-56); Albumin, Serum 3.7 g/dL (3.2-5.0); Alkaline Phosphatase 100 U/L (45-117); Anion Gap 8 (5-15); BUN 18 mg/dL (7-18); Basophil# 0.03 X10^3/uL; Basophil% 0.4 % (0-1); Calcium,Total 9.1 mg/dL (8.5-10.1); Chloride 103 mmol/L (98-107); EST Glomerular Filtration Rate 47 mL/min (>60); Eosinophil# 0.15 X10^3/uL; Eosinophils% 1.9 % (0-5); Est Glom Filt Rate - Afr Amer 57 mL/min (>60); Globulin 4.1 g/dL (2.2-4.2); Glucose 115 mg/dL (74-106); Hematocrit 44.3 % (37-47); Hemoglobin 13.8 g/dl (12.0-15.0); Lymphocyte # 1.29 X10^3/ul (4.0); Lymphocyte % 16.8 % (19-41); Mean Corp Hgb Conc 31.2 g/gl (32-36); Mean Corpuscular Hgb 29.4 pg (27.0-32.0); Mean Corpuscular Volume 94.5 fL (81-99); Mean Platelet Vol. 9.1 fl (6.2-12.0); Monocyte# 0.34 X10^3/uL; Monocyte% 4.4 % (0-10); Neutrophil # 5.86 X10^3/uL (2.7-7.7); Neutrophil % 76.1 % (47-70); Platelet Count 269 K/mm3 (150-450); Protein, Total 7.8 g/dL (6.4-8.2); RBC Distribution Width CV 13.8 % (11.6-14.6); RBC Distribution Width SD 47.6 fl (35.1-43.9); Red Blood Count 4.69 M/mm3 (4.2-5.4); Rheumatoid Factor < 10.0 IU/mL (<15); Sodium Level 140 mmol/L (136-145); White Blood Count 7.7 K/mm3 (4.4-11.0)
[2018-11-19 15:51] LABS: POSITIVE COUNT NO; POSITIVE DIFFERENTIAL NO; POSITIVE MORPHOLOGY NO
[2018-11-25 14:35] LABS: CCP IgG Antibodies 6 units (0-19); HEPATITIS B SURFACE AG Negative (Negative); HLA B27 Negative (.); Hep B Surface Antibodies Non Reactive (.); Hep C Antibodies 0.2 s/co ratio (0.0-0.9)
== END ==
PROVIDERS: Family Provider Nurse Practitioner; PCP Nurse Practitioner; Referring Provider Internal Medicine Rheumatology; Visit Provider Internal Medicine Rheumatology
DX: M06.4 Inflammatory polyarthropathy (principal); M15.9 Polyosteoarthritis, unspecified; M50.30 Other cervical disc degeneration, unspecified cervical region; J44.9 Chronic obstructive pulmonary disease, unspecified; E03.2 Hypothyroidism due to medicaments and other exogenous substances; I44.7 Left bundle-branch block, unspecified
CPT/HCPCS: 36415; 80053; 81374; 85025; 86200; 86431; 86706; 86803; 87340

== ENCOUNTER → 2018-12-10 | Outpatient (CLI) | payer BC, SELFPAY ==
[2018-10-17 21:48] VITALS: BMI 24.3
--- NOTE | 2018-12-10 12:47 | CT_ITS ---
STUDY: CTA OF THE ABDOMINAL AORTA AND BILATERAL LOWER EXTREMITIES REASON FOR EXAM: Female, 68 years old. History of bilateral groin pain down to the level of the knees. Patient status post appendectomy, cholecystectomy and hysterectomy. RADIATION DOSAGE (If Supplied By Facility): CTDIvol = ( 7.39 ) mGy, DLP = ( 1164.12 ) mGycm TECHNIQUE: Axial CT angiography multi-detector data acquisition was obtained from the to the following intravenous administration of 100ml IV Isovue 370. Axial images and MIP images were reconstructed from the axial data set. Post-processing of the angiographic images was performed, with multiplanar reformation and 3D reconstruction. Individualized dose optimization techniques were used for this CT. TECHNICAL QUALITY: Good COMPARISON: Comparison is made with a prior examination dated September 03, 2016. Descriptors of Narrowing: None (0%) Mild (< 50%) Moderate (50-70%) Severe (70-90%) Subtotal/Total Occlusion (90-100%) Non-Evaluable (technically non-diagnostic FINDINGS: There is evidence of interstitial scarring at the lung bases with honeycombing suggestive of pulmonary fibrosis. Multiple calcified granulomas within the spleen. Abdominal aorta: Atherosclerotic plaque formation of the abdominal aorta with the evidence of mural thrombus. There is a fusiform dilatation of the infrarenal abdominal aorta with a transverse dimension of 2.8 cm. There is also evidence of a moderate-sized ulcerated plaque along the lateral aspect of the distal abdominal aorta. Celiac and superior mesenteric arteries: Atherosclerotic plaque at the origin of the celiac artery. Inferior mesenteric artery: Nonvisualized. Right renal artery(arteries): No demonstrated narrowing. Left renal artery(arteries): Mild nonstenotic atherosclerotic plaque at the origin of the left renal artery. Right common iliac artery: Tight stenosis at the origin of the right common iliac artery due to atherosclerotic plaque. Nonstenotic plaque is seen throughout its course. Right external iliac artery: Nonocclusive stenotic plaque seen throughout the external iliac artery. Right internal iliac artery: No demonstrated narrowing. Left common iliac artery: Nonstenotic plaque seen at the origin of the left common iliac artery. Left external iliac artery: Nonstenotic plaque throughout the external iliac artery. Left internal iliac artery: No demonstrated narrowing. RIGHT LOWER EXTREMITY Right common femoral artery: No demonstrated narrowing. Right profundus femoris: No demonstrated narrowing. Right superficial femoral: No demonstrated narrowing. Right popliteal artery: No demonstrated narrowing. Right tibioperoneal trunk: No demonstrated narrowing. Right anterior tibial artery: No demonstrated narrowing. Right posterior tibial artery: No demonstrated narrowing. Right peroneal artery: No demonstrated narrowing. LEFT LOWER EXTREMITY Left common femoral artery: No demonstrated narrowing. Left profundus femoris: No demonstrated narrowing. Left superficial femoral: No demonstrated narrowing. Left popliteal artery: No demonstrated narrowing. Left tibioperoneal trunk: No demonstrated narrowing. Left anterior tibial artery: No demonstrated narrowing. Left posterior tibial artery: No demonstrated narrowing. Left peroneal artery: No demonstrated narrowing. CT/CTA Abd w/Runoff W/WO Contrast IMPRESSION: Mild dilatation of the distal abdominal aorta with mural thrombus in the calcified plaques. Findings suggestive of an ulcerated plaque along the right lateral margin of the distal abdominal aorta. Tight stenosis at the origin of the right common iliac artery. Electronically Signed: Ethan Samuel, at 9:47 EDT , Service support ,
[2018-12-10 14:27] LABS: AST(SGOT) 17 U/L (15-37); Alanine Aminotransfer ALT/SGPT 17 U/L (13-56); Albumin, Serum 3.5 g/dL (3.2-5.0); Alkaline Phosphatase 79 U/L (45-117); Bilirubin, Direct 0.11 mg/dL (0.00-0.30); Cholesterol 194 mg/dL (200); Globulin 3.4 g/dL (2.2-4.2); High Density Lipoprotein 42 mg/dL; Protein, Total 6.9 g/dL (6.4-8.2); Triglycerides 139 mg/dL; Very Low Density Lipoprotein 28 mg/dL (5-40)
== END | disposition home or self-care (01) ==
PROVIDERS: Internal Medicine Cardiovascular Disease; Family Provider Nurse Practitioner; PCP Nurse Practitioner; Referring Provider Nurse Practitioner; Visit Provider Nurse Practitioner
DX: R10.30 Lower abdominal pain, unspecified (principal); I70.90 Unspecified atherosclerosis; E78.00 Pure hypercholesterolemia, unspecified
CPT/HCPCS: 36415; 75635; 80061; 80076; Q9967; A4216

== ENCOUNTER → 2019-03-10 | Outpatient (CLI) | payer BC, SELFPAY ==
[2018-10-17 21:48] VITALS: BMI 24.3
[2019-03-10 16:46] LABS: Albumin, Serum 3.8 g/dL (3.2-5.0); BUN 19 mg/dL (7-18); BUN/Creat Ratio 16.2 RATIO (10-20); Calcium,Total 9.1 mg/dL (8.5-10.1); Chloride 104 mmol/L (98-107); Creatinine, Serum 1.17 mg/dL (0.55-1.02); EST Glomerular Filtration Rate 49 mL/min (>60); Est Glom Filt Rate - Afr Amer 59 mL/min (>60); Glucose 95 mg/dL (74-106); Phosphorus 3.4 mg/dL (2.5-4.9); Potassium 4.1 mmol/L (3.5-5.1); Sodium Level 140 mmol/L (136-145)
== END | disposition home or self-care (01) ==
LOC: LAB.FUTURE 15:35
PROVIDERS: Family Provider Nurse Practitioner; PCP Nurse Practitioner; Referring Provider Nurse Practitioner; Visit Provider Nurse Practitioner
DX: N28.9 Disorder of kidney and ureter, unspecified (principal)
CPT/HCPCS: 36415; 80069

== ENCOUNTER → 2019-08-02 06:25 | Outpatient (CLI) | payer BC, SELFPAY ==
[2019-06-22 14:37] VITALS: BMI 25.7
--- NOTE | 2019-08-02 12:55 | STRESSREP ---
Stress Test Report Date: 08-02-19 Procedure: Pharmacologic stress nuclear imaging study Indications: Chest discomfort/pain Consent: Per the patient Procedure: The patient underwent pharmacologic (Regadenoson) evaluation with a peak heart rate of 104 beats per minute (68 %predicted maximal heart rate) and a peak blood pressure of 152/74 mmHg. The baseline ECG demonstrated sinus bradycardia; left bundle branch block. The peak pharmacologic ECG demonstrated continued left bundle branch block. There were no cardiac dysrhythmias pretest, during pharmacologic infusion, or recovery. There was no complaint of chest discomfort during pharmacologic infusion or recovery. The examination was discontinued secondary to completion of protocol. Impression: 1. Pharmacologic (Regadenoson) evaluation 2. Peak pharmacologic ECG with continued left bundle branch block. 3. There were no cardiac dysrhythmias pretest, during pharmacologic infusion, or recovery. 4. Nuclear images pending Myocardial perfusion imaging study: Technique: The patient was injected with 11.0 millicuries of technetium 99m Cardiolite and subsequently rest SPECT Cardiolite nuclear imaging was obtained in the horizontal long, vertical long, and short axis views. The patient underwent pharmacologic (Regadenoson) evaluation with a peak heart rate of 104 beats per minute (68 % percent predicted maximal heart rate) and a peak blood pressure of 152/74 mmHg. The patient was injected with 35.0 millicuries of technetium 99m Cardiolite and subsequently stress SPECT Cardiolite nuclear imaging was obtained in the horizontal long, vertical long, and short axis views. A gated Cardiolite study at peak stress was obtained. Interpretation: Rest and stress SPECT Cardiolite nuclear imaging status post realignment, normalization, and attenuation correction demonstrate relative uniform tracer uptake and myocardial perfusion appearing within normal limits. There is end systolic thickening and brightening. The gated Cardiolite study demonstrates myocardial thickening and inward wall motion. The reported LVEF is 47 %. Impression: 1. Rest and stress SPECT Cardiolite nuclear imaging demonstrate relative uniform tracer uptake and myocardial perfusion appearing within normal limits. 2. The gated Cardiolite study reports an LVEF of 47 %. This note was generated with [employer] software. It may contain incorrect words, spelling, and punctuation that were not noted in checking the note before signing.
== END ==
PROVIDERS: Family Provider Nurse Practitioner; PCP Nurse Practitioner; Referring Provider Internal Medicine Cardiovascular Disease; Visit Provider Internal Medicine Cardiovascular Disease
DX: R07.9 Chest pain, unspecified (principal); I44.7 Left bundle-branch block, unspecified; E78.00 Pure hypercholesterolemia, unspecified; I10 Essential (primary) hypertension; Z98.890 Other specified postprocedural states
CPT/HCPCS: 78452; 93017; A9500; A4216; J2785

== ENCOUNTER → 2019-11-14 13:51 | Outpatient (CLI) | payer BC, SELFPAY ==
[2019-06-22 14:37] VITALS: BMI 25.7
[2019-11-14 14:36] LABS: Absolute Lymphocyte Count 1.56 X10^3/uL (0.83-4.51); Absolute Neutrophil Count 3.5 X10^3/uL (2.0-7.7); Basophil# 0.03 X10^3/uL; Basophil% 0.5 % (0-1); Eosinophil# 0.12 X10^3/uL; Eosinophils% 2.1 % (0-5); Hematocrit 44.7 % (37-47); Hemoglobin 14.6 g/dL (12.0-15.0); Lymphocyte # 1.56 X10^3/ul (4.0); Lymphocyte % 27.3 % (19-41); Mean Corp Hgb Conc 32.7 g/dL (32-36); Mean Corpuscular Hgb 30.3 pg (27.0-32.0); Mean Corpuscular Volume 92.7 fL (81-99); Mean Platelet Vol. 8.8 fl (6.2-12.0); Monocyte# 0.47 X10^3/uL; Monocyte% 8.2 % (0-10); NRBC Flagged by Analyzer 0 % (0-5); Neutrophil % 61.4 % (47-70); Platelet Count 273 K/mm3 (150-450); RBC Distribution Width CV 12.5 % (11.6-14.6); RBC Distribution Width SD 42.5 fl (35.1-43.9); Red Blood Count 4.82 M/mm3 (4.2-5.4); White Blood Count 5.7 K/mm3 (4.4-11.0)
[2019-11-14 15:41] LABS: Vitamin D,25 Hydroxy 37.6 ng/mL
[2019-11-14 15:48] LABS: ALB/GLOB Ratio 1.1 RATIO (0.9-2.4); AST(SGOT) 23 U/L (15-37); Alanine Aminotransfer ALT/SGPT 19 U/L (13-56); Albumin, Serum 3.9 g/dL (3.2-5.0); Alkaline Phosphatase 96 U/L (45-117); Anion Gap 6 (5-15); BUN 20 mg/dL (7-18); BUN/Creat Ratio 16.3 RATIO (10-20); Calcium,Total 9.2 mg/dL (8.5-10.1); Chloride 106 mmol/L (98-107); Cholesterol 216 mg/dL (200); Creatinine, Serum 1.23 mg/dL (0.55-1.02); EST Glomerular Filtration Rate 46 mL/min (>60); Est Glom Filt Rate - Afr Amer 56 mL/min (>60); Globulin 3.5 g/dL (2.2-4.2); Glucose 88 mg/dL (74-106); High Density Lipoprotein 55 mg/dL; Potassium 4.5 mmol/L (3.5-5.1); Protein, Total 7.4 g/dL (6.4-8.2); Sodium Level 140 mmol/L (136-145); Thyroid Stim Hormone (TSH) 2.73 uIU/mL (0.358-3.74); Triglycerides 108 mg/dL; Very Low Density Lipoprotein 22 mg/dL (5-40)
== END ==
PROVIDERS: PCP Nurse Practitioner; Referring Provider Nurse Practitioner; Visit Provider Nurse Practitioner
DX: E78.00 Pure hypercholesterolemia, unspecified (principal); R10.9 Unspecified abdominal pain; E55.9 Vitamin D deficiency, unspecified; R39.15 Urgency of urination
CPT/HCPCS: 36415; 80053; 80061; 82306; 84443; 85025

== ENCOUNTER → 2019-11-21 13:38 | Outpatient (CLI) | payer BC, SELFPAY ==
[2019-06-22 14:37] VITALS: BMI 25.7
--- NOTE | 2019-11-21 13:41 | CT_ITS ---
STUDY: CTA OF THE ABDOMINAL AORTA AND BILATERAL LOWER EXTREMITIES REASON FOR EXAM: Female, 69 years old. AAA WITHOUT RUPTURE, PAIN LEFT ABDOMEN DOWN INTO LEGS. H/O APPY, ODILIA, HYSTER. RADIATION DOSAGE (If Supplied By Facility): CTDIvol = ( 7.30 ) mGy, DLP = ( 1070.92 ) mGycm TECHNIQUE: Axial CT angiography multi-detector data acquisition was obtained from the dome of the liver to the level of the ankles following intravenous administration of 100 CC OPTIRAY 350. Axial images and MIP images were reconstructed from the axial data set. Post-processing of the angiographic images was performed, with multiplanar reformation and 3D reconstruction. Individualized dose optimization techniques were used for this CT. TECHNICAL QUALITY: Good COMPARISON: Comparison is made with prior examination dated December 10, 2018. Descriptors of Narrowing: None (0%) Mild (< 50%) Moderate (50-70%) Severe (70-90%) Subtotal/Total Occlusion (90-100%) Non-Evaluable (technically non-diagnostic FINDINGS: Stable interstitial fibrosis in the lower lobes. Multiple calcified splenic granulomas. The patient is status post cholecystectomy. Abdominal aorta: 16 again, there is evidence of atherosclerotic plaque formation of the abdominal aorta with evidence of a small amount of mural thrombus. Stable fusiform dilatation of the infrarenal abdominal aorta with a transverse dimension of 2.8 cm. This is unchanged. Celiac and superior mesenteric arteries: Atherosclerotic plaque at the origin of the superior mesenteric artery and celiac arteries. Inferior mesenteric artery: Not visualized. Right renal artery(arteries): No demonstrated narrowing. Left renal artery(arteries): Mild atherosclerotic plaque at origin left renal artery with minimal stenosis. Right common iliac artery: Atherosclerotic plaque formation at the origin of the right common iliac artery with moderate stenosis. Right external iliac artery: Nonocclusive stenotic plaque. Right internal iliac artery: No demonstrated narrowing. Left common iliac artery: Nonstenotic calcific plaque anteriorly of the left common iliac artery. Left external iliac artery: Nonstenotic calcific plaque. Left internal iliac artery: No demonstrated narrowing. RIGHT LOWER EXTREMITY Right common femoral artery: No demonstrated narrowing. Right profundus femoris: No demonstrated narrowing. Right superficial femoral: No demonstrated narrowing. Right popliteal artery: No demonstrated narrowing. Right tibioperoneal trunk: No demonstrated narrowing. Right anterior tibial artery: No demonstrated narrowing. Right posterior tibial artery: No demonstrated narrowing. Right peroneal artery: No demonstrated narrowing. LEFT LOWER EXTREMITY Left common femoral artery: No demonstrated narrowing. Left profundus femoris: No demonstrated narrowing. Left superficial femoral: Focal stenosis throughout the course of the right superficial femoral artery. Left popliteal artery: No demonstrated narrowing. Left tibioperoneal trunk: No demonstrated narrowing. Left anterior tibial artery: No demonstrated narrowing. Left posterior tibial artery: No demonstrated narrowing. Left peroneal artery: No demonstrated narrowing. Incidental note is made of vertebroplasty of the L4 and L5 vertebral bodies. CT/CTA Abd w/Runoff W/WO Contrast IMPRESSION: Infrarenal abdominal aortic aneurysm with a transverse dimension of 2.8 cm. This is unchanged. Electronically Signed: Ethan Samuel, at 15:00 EDT , Service support ,
== END ==
PROVIDERS: PCP Nurse Practitioner; Referring Provider Nurse Practitioner; Visit Provider Nurse Practitioner
DX: I71.4 Abdominal aortic aneurysm, without rupture (principal)
CPT/HCPCS: 75635; Q9967; A4216

== ENCOUNTER → 2019-11-21 14:10 | Outpatient (CLI) | payer BC, SELFPAY ==
[2019-06-22 14:37] VITALS: BMI 25.7
== END ==
PROVIDERS: PCP Nurse Practitioner; Referring Provider Nurse Practitioner; Visit Provider Nurse Practitioner
DX: E78.00 Pure hypercholesterolemia, unspecified (principal); E55.9 Vitamin D deficiency, unspecified; R10.9 Unspecified abdominal pain
CPT/HCPCS: 87077; 87086; 87088; 87186

== ENCOUNTER → 2019-11-30 10:06 | Outpatient (CLI) | payer BC, SELFPAY ==
[2019-06-22 14:37] VITALS: BMI 25.7
--- NOTE | 2019-11-30 10:10 | US_ITS ---
STUDY: ABDOMINAL ULTRASOUND REASON FOR EXAM: Female, 69 years old. PANCREATITIS TECHNIQUE: Transabdominal ultrasound was performed with real-time and static felder scale imaging. TECHNICAL QUALITY: Adequate. COMPARISON: None. FINDINGS: Liver: The liver measures 15.2 cm. There is normal echogenicity of the liver. The bile ducts are within normal limits. There is hepatic color flow. The direction of portal flow is hepatopetal. There is no demonstrated mass lesion. Portal vein measurement: Gallbladder: The patient is status post cholecystectomy. Common Bile Duct (C.B.D.): The common bile duct measures 5.0 mm. Pancreas: Normal size of the head, body and tail of the pancreas. There is normal echogenicity of the pancreas. There is no demonstrated pancreatic mass or cyst. Spleen: Normal size of the spleen. The spleen measures 11.1 cm x 4.6 x 4.2 cm. Calcified splenic granulomas. Right Kidney: Normal size of the right kidney. The right kidney measures 10.1 cm x 4.3 cm x 3.6 cm. Normal renal cortex. The right cortex measures 1.3 cm. There is no demonstrated renal mass or cyst. There is no right hydronephrosis. Left Kidney: Normal size of the left kidney. The left kidney measures 10 cm x 4.6 cm x 4.6 cm. Normal renal cortex. The left cortex measures 1.2 cm. There is no demonstrated renal mass or cyst. There is no left hydronephrosis. Aorta: Stable dilatation of the infrarenal abdominal aorta with a transverse dimension of 2.8 cm.. I.V.C.: The IVC is patent. There is no ascites. US/Abdomen Complete IMPRESSION: Stable infrarenal abdominal aortic aneurysm. Calcified splenic granulomas. Electronically Signed: Ethan Samuel, at 12:07 EDT , Service support ,
--- NOTE | 2019-11-30 14:00 | US_ITS ---
STUDY: ULTRASOUND OF THE FEMALE PELVIS - COMPLETE REASON FOR EXAM: Female, 69 years old. LLQ PAIN- COMPLETE HYSTERECTOMY LMP: The patient is postmenopausal. TECHNIQUE: Transabdominal TECHNICAL QUALITY: Adequate. COMPARISON: None. FINDINGS: The patient is status post hysterectomy. The right ovary is non-visualized. The left ovary is non-visualized. There is no fluid in the cul-de-sac. The pre void volume of the bladder was 32 ml. US/Pelvic (Non ) IMPRESSION: The patient is status post hysterectomy. No pelvic abnormality is seen. Electronically Signed: Ethan Samuel, at 14:24 EDT , Service support ,
== END ==
PROVIDERS: PCP Nurse Practitioner; Referring Provider Nurse Practitioner; Visit Provider Nurse Practitioner
DX: R10.32 Left lower quadrant pain (principal)
CPT/HCPCS: 76700; 76856

== ENCOUNTER → 2020-01-16 13:57 | Outpatient (CLI) | payer BC, SELFPAY ==
[2019-12-27 14:01] VITALS: BMI 25.7
--- NOTE | 2020-01-16 14:00 | CDU_ITS ---
Reason For Study: Carotid bruit Rt. Velocities/BP Lt. Velocities/BP Prox CCA 74.7/10.8 cm/sec. Prox CCA 71.6/13.9 cm/sec. Mid CCA 90.4/17.3 cm/sec. Mid CCA 93.7/17.6 cm/sec. Dist CCA 90.4/16 cm/sec. Dist CCA 90/17.6 cm/sec. Prox ICA 90/10.2 cm/sec. Prox ICA 104.7/27.9 cm/sec. Mid ICA 63/15.1 cm/sec. Mid ICA 93.7/24.3 cm/sec. Dist ICA 72.9/15.7 cm/sec. Dist ICA 74.1/20 cm/sec. Rt. ICA/CCA = 1.00. Lt. ICA/CCA = 1.16. Prox ECA 113.9/9.5 cm/sec. Prox ECA 169.6/11.6 cm/sec. Rt. Vert. 41.9/9.7 cm/sec. Lt. Vert. 67.4/17.9 cm/sec. Right Extracranial There is heterogeneous, irregular atherosclerotic plaque noted in the right common carotid artery. There is heterogeneous, irregular atherosclerotic plaque noted in the right internal carotid artery. There is homogeneous, smooth atherosclerotic plaque noted in the right external carotid artery. Antegrade flow is noted in the right vertebral artery. Left Extracranial There is heterogeneous, irregular atherosclerotic plaque noted in the left common carotid artery. There is heterogeneous, irregular atherosclerotic plaque noted in the left internal carotid artery. The atherosclerotic plaque causes acoustic shadowing. There is homogeneous, smooth atherosclerotic plaque noted in the left external carotid artery. Antegrade flow is noted in the left vertebral artery. Procedure Carotid Duplex 10714. Could not demonstrate elevated velocities bilaterally compared to 06/28/2018. Exam performed in department. Interpretation Summary Irregular calcific plaque right mid common carotid artery Postoperative changes right carotid bulb and proximal internal carotid <50% stenosis right internal carotid <50% stenosis right external carotid Irregular calcific plague left mid common carotid artery Calcific plague with shadowing proximal left internal carotid <50% stenosis left internal carotid <50% senosis left external carotid Patent, antegrade vertebrals bilaterally Improved findings since the previous exam of 06/28/18 Ordering Physician: Carolann Cali Referring Physician: Isatu Benson Performed By: Marianela Iniguez RVT
== END ==
PROVIDERS: PCP Nurse Practitioner; Referring Provider Physician Assistant Medical; Visit Provider Physician Assistant Medical
DX: I10 Essential (primary) hypertension (principal); I73.9 Peripheral vascular disease, unspecified; R09.89 Other specified symptoms and signs involving the circulatory and respiratory systems; Z98.890 Other specified postprocedural states
CPT/HCPCS: 93880

== ENCOUNTER → 2020-01-24 16:01 | Outpatient (CLI) | payer BC, SELFPAY ==
[2019-12-27 14:01] VITALS: BMI 25.7
== END ==
PROVIDERS: PCP Nurse Practitioner; Referring Provider Nurse Practitioner; Visit Provider Nurse Practitioner
DX: Z00.00 Encounter for general adult medical examination without abnormal findings (principal)

== ENCOUNTER → 2020-01-26 16:13 | Outpatient (CLI) | payer BC, MEDICARE, SELFPAY ==
[2019-12-27 14:01] VITALS: BMI 25.7
--- NOTE | 2020-01-26 16:14 | BI_ITS ---
MAMMOGRAPHY - BILATERAL SCREENING REASON FOR EXAM: Female, 69 years old. Routine annual screening examination. PERTINENT HISTORY: Non-contributory. TECHNIQUE: Digital bilateral breast emerson (3D mammographic acquisition) in the CC and MLO projections. 2-D mediolateral oblique (MLO) and craniocaudad (CC) views of both breasts were obtained. CAD: Full Field Digital Mammography with Computer Added Detection was performed. COMPARISON: Comparison is made with prior examination dated July 21, 2018 and June 20, 2016. FINDINGS: Breast Composition: The breasts are heterogeneously dense, which may obscure small masses. There are no dominant masses or suspicious calcifications. Stable scattered bilateral benign appearing calcifications. Stable fat containing bilateral axillary lymph nodes. No other significant abnormalities are identified. There has been no significant change since the prior study. BI/SCREEN MAMM (CAD) W/EMERSNO BILAT IMPRESSION: Stable bilateral screening mammogram. Yearly follow-up mammogram recommended. (A) ASSESSMENT CATEGORY: BIRADS Category 2: Benign. A letter regarding these results will be sent to the patient by the facility within 30 days. Approximately 10% of breast cancers are not detected by mammography. A normal mammogram should not delay biopsy of a clinically suspicious abnormality. [id number] Electronically Signed: Ethan Samuel, at 8:08 EDT , Service support ,
== END ==
PROVIDERS: PCP Nurse Practitioner; Referring Provider Nurse Practitioner; Visit Provider Nurse Practitioner
DX: Z12.31 Encounter for screening mammogram for malignant neoplasm of breast (principal)
CPT/HCPCS: 77063; 77067

== ENCOUNTER → 2021-01-24 13:46 | Outpatient (CLI) | payer MEDICARE, SELFPAY ==
[2020-09-24 13:43] VITALS: BMI 25.2
--- NOTE | 2021-01-24 13:50 | BI_ITS ---
MAMMOGRAPHY - BILATERAL SCREENING REASON FOR EXAM: Female, 70 years old. Routine annual screening examination. PERTINENT HISTORY: Non-contributory. TECHNIQUE: Digital bilateral breast emerson (3D mammographic acquisition) in the CC and MLO projections. 2-D mediolateral oblique (MLO) and craniocaudad (CC) views of both breasts were obtained. CAD: Full Field Digital Mammography with Computer Added Detection was performed. COMPARISON: Comparison is made with prior study dated 01/26/2020 and 07/21/2018. FINDINGS: Breast Composition: The breasts are heterogeneously dense, which may obscure small masses. There are no dominant masses or suspicious calcifications. Stable benign appearing bilateral axillary lymph nodes. No other significant abnormalities are identified. There has been no significant change since the prior study. BI/SCRN MAMM (CAD)W/EMERSON BILAT IMPRESSION: Stable bilateral screening mammogram. Yearly follow-up mammogram recommended. (A) ASSESSMENT CATEGORY: BIRADS Category 2: Benign. A letter regarding these results will be sent to the patient by the facility within 30 days. Approximately 10% of breast cancers are not detected by mammography. A normal mammogram should not delay biopsy of a clinically suspicious abnormality. [id number] Electronically Signed: Ethan Samuel MD at 15:04 EDT , Service support ,
== END ==
PROVIDERS: PCP Nurse Practitioner; Referring Provider Nurse Practitioner; Visit Provider Nurse Practitioner
DX: Z12.31 Encounter for screening mammogram for malignant neoplasm of breast (principal)
CPT/HCPCS: 77063; 77067

== ENCOUNTER 2021-08-29 15:20 | Inpatient (IN) | payer MEDICARE, SELFPAY ==
[2021-08-29] VITALS (16 sets, daily range): BP systolic 126–145; BP diastolic 55–80; PULSE 76–84; RESP 16–32; TEMP 36.1–36.8; O2SAT 90–98; BMI 25.1; BMI 24.7
--- NOTE | 2021-08-29 15:52 | EKG12_ITS ---
Test Reason : SOB Blood Pressure : / mmHG Vent. Rate : 076 BPM Atrial Rate : 076 BPM P-R Int : 114 ms QRS Dur : 134 ms QT Int : 424 ms P-R-T Axes : 069 003 176 degrees QTc Int : 477 ms Normal sinus rhythm Left bundle branch block Abnormal ECG Confirmed by JARRETT PARMAR, [place] ([id number]), editor magazine OUSMANE SILVA ([id number]) on 09/04/2021 11:15:46 AM Referred By: FEDE Confirmed By:MON[place]NA FARIAS MD
--- NOTE | 2021-08-29 15:53 | ED.VIS.DYS ---
HPI History of Present Illness Chief Complaint: Shortness of Breath Informant: patient Narrative Narrative: Patient presents with Covid symptoms. Patient states she started with Covid symptoms with cough myalgias headache on . She was seen at a different emergency department on tested for Covid and was positive. She also had x-ray other blood work and had urinalysis done. She was told that she has a lung infection, urine infection and Covid. She was placed on nitrofurantoin, doxycycline, and prednisone. She was evidently not hypoxic. She does not have home oxygen. She does not have a way to check her oxygen saturations at home. She is a smoker. She does have history of some mild asthma based on medications but she denied asthma. She states really that her symptoms are not better and they should be better on antibiotics. The symptoms really are not worse. PFSH PFSH Medical History Chronic obstructive lung disease Ectopic beats Essential hypertension Left bundle branch block PAD (peripheral artery disease) Pure hypercholesterolemia Stenosis of right carotid artery Tobacco user Home Medications alprazolam 0.25 mg PO BID PRN PRN 10/08/13 [History Last Taken Unknown] escitalopram oxalate 20 mg PO QHS 10/08/13 [History Last Taken 10/16/18] ezetimibe 10 mg PO DAILY 10/08/13 [History Last Taken 10/17/18] aspirin 81 mg PO DAILY@0800 05/16/15 [History Last Taken 10/17/18] omeprazole 40 mg PO DAILY 12/04/15 [History Last Taken 10/17/18] metoprolol succinate 25 mg tablet,extended release 24 hr 12.5 mg PO QDAY tab 08/17/17 [History Last Taken 10/17/18] tiotropium bromide 18 mcg capsule with inhalation device 1 cap INHALATION QDAY 08/17/17 [History Last Taken 10/17/18] levothyroxine 88 mcg tablet 88 mcg PO DAILY 06/11/18 [History Last Taken 10/17/18] metaxalone 800 mg PO BID 10/17/18 [History Last Taken 10/17/18] acetaminophen 650 mg PO Q4H PRN PRN tab 10/19/18 [Rx Last Taken Unknown] albuterol sulfate 1 - 2 puff INHALATION Q4H PRN PRN #1 inhaler 10/19/18 [Rx Last Taken Unknown] benzonatate 100 mg PO 4X/DAY PRN PRN #30 cap 10/19/18 [Rx Last Taken Unknown] vitamin B complex 1 tab PO DAILY 06/22/19 [History Last Taken Unknown] ascorbic acid (vitamin C) 500 mg tablet 500 mg PO DAILY 09/24/20 [History Last Taken Unknown] cholecalciferol (vitamin D3) 25 mcg (1,000 unit) tablet 25 mcg PO DAILY 09/24/20 [History Last Taken Unknown] zinc 50 mg tablet 50 mg PO DAILY 09/24/20 [History Last Taken Unknown] doxycycline hyclate 100 mg PO BID 08/29/21 [History Last Taken Unknown] nitrofurantoin monohyd/m-cryst 100 mg PO DAILY 08/29/21 [History Last Taken Unknown] Allergy/AdvReac Type Severity Reaction Status Date / Time azithromycin [From Zithromax] Allergy Hives Verified 08/29/21 15:24 cortisone [Cortisone] Allergy Swelling Verified 08/29/21 15:24 erythromycin base Allergy Other Verified 08/29/21 15:24 [Erythromycin Base] Surgical History History of back surgery (~04/22/19) History of carotid endarterectomy (~2012) History of sinus surgery Social History Smoking Status: Current every day smoker tobacco type: cigarettes ROS ROS ED Constitutional Constitutional ED: Reports chills and fever(s) Eyes Eyes: Denies blurry vision or change in vision ENT ENT ED: Reports rhinorrhea; Denies sore throat Cardiovascular Cardiovascular: Denies chest pain Respiratory/Chest Respiratory/Chest: Reports cough, dyspnea and dyspnea on exertion; Denies sputum Gastrointestinal Gastrointestinal: Reports nausea; Denies abdominal pain, diarrhea or vomiting Genitourinary Genitourinary ED: Reports other Details: Patient is treated for UTI. However, she is not having urinary symptoms at this time. ; Denies dysuria or hematuria Musculoskeletal Musculoskeletal: Reports myalgias Integumentary Denies rash Neurologic Neurologic: Denies headache(s) or weakness Psychiatric Psychiatric: Denies depression Endocrine Endocrinology: Denies polydipsia or polyuria Hematologic/Lymphatic Hematologic/Lymphatic: Denies easy bleeding or easy bruising Allergic/Immunologic Allergic/Immunologic ED: Denies urticaria EXAM Physical Exam Const Vital Signs: 08/29/21 15:21 08/29/21 15:24 08/29/21 15:25 Temperature 96.9 F L 96.9 F L Temperature Source Temporal Temporal Pulse Rate 84 84 Respiratory Rate 16 16 Respiratory Effort Respiratory Depth Respiratory Pattern Blood Pressure 135/69 H Blood Pressure Mean 91 Pulse Ox 90 90 90 Oxygen Delivery Method Room Air Room Air Room Air Oxygen Flow Rate (L/min) 08/29/21 15:34 08/29/21 17:35 08/29/21 17:42 Temperature Temperature Source Pulse Rate Respiratory Rate Respiratory Effort Short of Breath Labored Respiratory Depth Normal Respiratory Pattern Normal Blood Pressure 132/65 H Blood Pressure Mean 87 Pulse Ox 96 93 Oxygen Delivery Method Nasal Cannula Nasal Cannula Nasal Cannula Oxygen Flow Rate (L/min) 2 4 4 08/29/21 17:53 08/29/21 18:06 Temperature Temperature Source Pulse Rate Respiratory Rate Respiratory Effort Respiratory Depth Respiratory Pattern Blood Pressure Blood Pressure Mean Pulse Ox 94 94 Oxygen Delivery Method Nasal Cannula Nasal Cannula Oxygen Flow Rate (L/min) 4 4 Positive well nourished and well developed General Appearance ED: well developed and NAD HEENT Reports moist mucous membranes atraumatic Eyes General Eye ED: Negative for pale conjunctiva or scleral icterus Neck No no JVD Resp normal respiratory effort and No clear to auscultation bilaterally Auscultation: rhonchi; Negative for rales or wheezes Cardio regular rate, regular rhythm and no murmurs GI non-tender and non-distended Palpation: soft Back/Spine normal to inspection Extremity normal to inspection General Extremety ED: Negative for edema or tenderness General Extremity: Negative for edema Neuro Sensorium / Orientation: alert; Negative for lethargic or stuporous Psych mental status grossly normal Skin Lesions: no lesions Rashes: no rashes MDM MDM MDM Narrative Medical decision making narrative: Since blood work shows a normal CBC. Electrolytes are essentially normal other than minimal elevation in the creatinine. Troponin is negative. D-dimer was elevated. We did do a CT. This did not show any marked acute abnormalities. There were some chronic likely changes. There was no pulmonary embolus. We tried to walk the patient. Standing on the edge of the bed she immediately had 88% and so we sat her back down. We did not even try to walk her because of this. We did this with 2 L of oxygen she had 88% very quickly again. We then put her on 4 L. She had 90% just on the edge of the bed. We did not walk her. She did feel little bit lightheaded with this. Our protocol says she could go home on oxygen if her saturations stays greater than 90%. But she had 90% even without ambulating. For this reason I think she does need to come in the hospital. I do not have access to her positive Covid test. But it was done at a nearby hospital 5 days ago. I will try to get those records and we will check here. I discussed the case with the hospitalist. Lab Data Attestation: I reviewed the patient's lab results. Labs: Laboratory Results - last 24 hr 08/29/21 08/29/21 08/29/21 16:00 16:00 16:00 WBC 6.4 RBC 4.82 Hgb 14.6 Hct 42.8 MCV 88.8 MCH 30.3 MCHC 34.1 RDW Std Deviation 41.8 RDW Coeff of [place] 12.7 Plt Count 234 MPV 8.6 Immature Gran % (Auto) 0.800 Neut % (Auto) 71.8 H Lymph % (Auto) 10.3 L [place] % (Auto) 13.8 H Eos % (Auto) 2.8 Baso % (Auto) 0.5 Absolute Neuts (auto) 4.6 Absolute Lymphs (auto) 0.66 L Nucleated RBC % 0 D-Dimer Quant (PE/DVT) 1.41 H* Sodium 138 Potassium 4.2 Chloride 106 Carbon Dioxide 28.0 Anion Gap 4 L BUN 19 H Creatinine 1.15 H Estim Creat Clear Calc 43.00 Est GFR (MDRD) Af Amer 60 Est GFR (MDRD) Non-Af 49 L BUN/Creatinine Ratio 16.5 Glucose 111 H Calcium 9.7 Troponin I High Sens 8 Radiography Diagnostic Testing: Clinical Impression(s) from Imaging Studies Chest X-Ray 08/29/21 15:56 IMPRESSION: Mild hyperinflation. No acute cardiopulmonary pathology. Electronically Signed: Adi Jenkins MD at 16:33 EST , Service support , Chest CTA 08/29/21 16:29 IMPRESSION: Chronic interstitial and emphysematous changes as well as old granulomatous disease. Question rounded atelectasis in the right lower lobe. This may be further assessed utilizing FLEISCHNER Society criteria if clinically warranted No evidence for pulmonary embolus. No definitive evidence for Covid 19 pneumonia Electronically Signed: Adi Jenkins MD at 17:24 EST , Service support , Discharge Plan Triage Chief Complaint: Shortness of Breath ED Provider: Segundo Medina Dx/Rx/DC Orders Prescriptions: No Action metoprolol succinate 25 mg tablet extended release 24 hr 12.5 mg PO QDAY RF: 0 tiotropium bromide [Spiriva with HandiHaler] 18 mcg capsule, w/inhalation device 1 cap INHALATION QDAY RF: 0 levothyroxine 88 mcg tablet 88 mcg PO DAILY RF: 0 vitamin B complex [B Complex 1] Tablet 1 tab PO DAILY RF: 0 cholecalciferol (vitamin D3) 25 mcg (1,000 unit) tablet 25 mcg PO DAILY RF: 0 zinc 50 mg tablet 50 mg PO DAILY RF: 0 ascorbic acid (vitamin C) 500 mg tablet 500 mg PO DAILY RF: 0 alprazolam 0.5 MG tablet 0.25 mg PO BID PRN PRN (Reason: Anxiety) RF: 0 escitalopram oxalate 20 MG tablet 20 mg PO QHS RF: 0 ezetimibe 10 MG tablet 10 mg PO DAILY RF: 0 aspirin 81 MG tablet,chewable 81 mg PO DAILY@0800 RF: 0 omeprazole 20 MG capsule 40 mg PO DAILY RF: 0 metaxalone 800 MG tablet 800 mg PO BID RF: 0 acetaminophen 325 MG tablet 650 mg PO Q4H PRN PRN (Reason: FEVER) RF: 0 benzonatate 100 MG capsule 100 mg PO 4X/DAY PRN PRN (Reason: Cough) Qty: 30 RF: 0 albuterol sulfate 1 INHALER inhaler 1 - 2 puff inhalation Q4H PRN PRN (Reason: Sob &/Or Wheezing) Qty: 1 RF: 0 doxycycline hyclate 100 mg capsule 100 mg PO BID RF: 0 nitrofurantoin monohyd/m-cryst 100 mg capsule 100 mg PO DAILY RF: 0 Primary Care Provider: Isatu Benson NP
--- NOTE | 2021-08-29 15:56 | RAD_ITS ---
STUDY: X-RAY CHEST REASON FOR EXAM: Female, 71 years old. cough, covid TECHNIQUE: AP portable COMPARISON: 10/29/2018 FINDINGS: Lungs are mildly hyperinflated and there is minor interstitial thickening at the lung bases. There is no demonstrated pleural abnormality. Normal size heart. Normal mediastinum and danii. Normal visualized pulmonary arteries. Mildly calcified aortic arch and descending thoracic aorta. Normal visualized thoracic spine. Normal visualized ribs, clavicles, and shoulders. There is no demonstrated abnormality of the visualized soft tissue structures of the upper abdomen. No significant change since prior exam RAD/Chest 1 View (Portable) IMPRESSION: Mild hyperinflation. No acute cardiopulmonary pathology. Electronically Signed: Adi Jenkins MD at 16:33 EST , Service support ,
[2021-08-29 16:08] LABS: Absolute Lymphocyte Count 0.66 X10^3/uL (0.83-4.51); Absolute Neutrophil Count 4.6 X10^3/uL (2.0-7.7); Basophil# 0.03 X10^3/uL; Basophil% 0.5 % (0-1); Eosinophil# 0.18 X10^3/uL; Eosinophils% 2.8 % (0-5); Hematocrit 42.8 % (37-47); Hemoglobin 14.6 g/dL (12.0-15.0); Lymphocyte # 0.66 X10^3/ul (0.83-4.51); Lymphocyte % 10.3 % (19-41); Mean Corp Hgb Conc 34.1 g/dL (32-36); Mean Corpuscular Hgb 30.3 pg (27.0-32.0); Mean Corpuscular Volume 88.8 fL (81-99); Mean Platelet Vol. 8.6 fl (6.2-12.0); Monocyte# 0.88 X10^3/uL; Monocyte% 13.8 % (0-10); NRBC Flagged by Analyzer 0 % (0-5); Neutrophil # 4.59 X10^3/uL (2.7-7.7); Neutrophil % 71.8 % (47-70); Platelet Count 234 K/mm3 (150-450); RBC Distribution Width CV 12.7 % (11.6-14.6); RBC Distribution Width SD 41.8 fl (35.1-43.9); Red Blood Count 4.82 M/mm3 (4.2-5.4); White Blood Count 6.4 K/mm3 (4.4-11.0)
[2021-08-29 16:27] LABS: D-Dimer Quantitative (DVT/PE) 1.41 FEU/ug/m (0.27-0.49)
[2021-08-29 16:28] LABS: Anion Gap 4 (5-15); BUN 19 mg/dL (7-18); BUN/Creat Ratio 16.5 RATIO (10-20); Calcium,Total 9.7 mg/dL (8.5-10.1); Chloride 106 mmol/L (98-107); Creatinine, Serum 1.15 mg/dL (0.55-1.02); EST Glomerular Filtration Rate 49 mL/min (>60); Est Glom Filt Rate - Afr Amer 60 mL/min (>60); Glucose 111 mg/dL (74-106); Potassium 4.2 mmol/L (3.5-5.1); Sodium Level 138 mmol/L (136-145); Troponin-I HS 8 pg/mL (3.0-54.0)
--- NOTE | 2021-08-29 16:29 | CT_ITS ---
STUDY: CTA CHEST REASON FOR EXAM: Female, 71 years old. Dyspnea, elevated D-dimer, Covid RADIATION DOSAGE (If Supplied By Facility): CTDIvol = ( 9.95 ) mGy, DLP = ( 373.92 ) mGycm TECHNIQUE: The examination was performed with the intravenous administration of IV 100mL Isovue-370. Post-processing of the angiographic images was performed, with multiplanar reformation and 3D reconstruction. Individualized dose optimization techniques were used for this CT. COMPARISON: None. FINDINGS: Normal enhancement of the main pulmonary artery and right and left pulmonary arteries. Normal enhancement of the bilateral peripheral pulmonary arteries. There is no demonstrated pulmonary embolism. Normal thoracic aorta and visualized great vessels. Atherosclerotic changes of the aorta without evidence for aneurysm.. Heart size is normal. There is mild coronary artery calcification Normal mediastinum. Normal hilar regions. Normal visualized trachea and bronchi. The lungs are well expanded. There is diffuse interstitial and emphysematous changes more severe in the upper lobes. There is also prominent subpleural interstitial thickening and fibrosis in the right lower lobe and to a lesser extent on the left. Large calcified granuloma in the right upper lobe. There is also a noncalcified subpleural nodular density in the superior segment of the right lower lobe measuring approximately 1.2 x 1.1 cm with findings suggestive of round atelectasis which is new since previous study Normal pleura. Normal chest wall structures. Dorsal spine demonstrates mild degenerative change Numerous tiny granulomatous calcifications within normal size spleen. CT/CTA Chest W/WO Contrast IMPRESSION: Chronic interstitial and emphysematous changes as well as old granulomatous disease. Question rounded atelectasis in the right lower lobe. This may be further assessed utilizing FLEISCHNER Society criteria if clinically warranted No evidence for pulmonary embolus. No definitive evidence for Covid 19 pneumonia Electronically Signed: Adi Jenkins MD at 17:24 EST , Service support ,
--- NOTE | 2021-08-29 18:07 | PCM.HP.STD ---
HPI - General General Date of Admission: 08/29/21 Date of Service: 08/29/21 Chief Complaint: COVID, worsening. HPI Narrative The patient is a 71 y/o F w/ PMHx: Chronic COPD, Tobacco use, Carotid disease s/p R CEA, HLD, HTN who presents to the [facility] ED on 08/29/21 with history of COVID Pfizer vaccination series x 2 but has not yet received her booster with onset COVID type symptoms starting on 08/24/21 with ED presentation at that time to [place] emergency room where she had a positive Covid test discharged on doxycycline as well as nitrofurantoin and prednisone therapy reporting that she had been told she had a lung infection, possible urine infection as well as Covid with no urinary symptoms reported with chills, headache, nausea without emesis in addition to cough and shortness of breath. Patient specifically denies any recent dysuria, suprapubic pain or tenderness. Patient reports that her daughter currently is admitted to [facility] secondary to uncontrolled diabetes but reports that she does not have Covid. Work-up in the ED included T 96.9, heart rate 84, BP 135/69, respiratory rate 16, initially with any ambulation attempts patient was less than 88% on room air and despite even application of 2 L nasal cannula remained 88% requiring increased up to 4 L nasal cannula to achieve 90% oxygenation initially until rested eventually increasing up to 96% on 4 L nasal cannula, CBC with WBC 6.4, hemoglobin 14.6, platelet 234 with lymphopenia, D-dimer 1.41, BMP with BUN/creat 19/1.15, glucose 111, troponin VIII, urinalysis with no obvious evidence of UTI, confirmatory rapid Covid antigen positive, chest x-ray with mild hyperinflation with no acute cardiopulmonary findings, follow-up CTPA with no evidence of pulmonary emboli, chronic interstitial and emphysematous changes as well as old granulomatous disease. [facility] Medical History Chronic obstructive lung disease Ectopic beats Essential hypertension Left bundle branch block PAD (peripheral artery disease) Pure hypercholesterolemia Stenosis of right carotid artery Tobacco user Home Medications alprazolam 0.25 mg PO BID PRN PRN 10/08/13 [History Last Taken Unknown] escitalopram oxalate 20 mg PO QHS 10/08/13 [History Last Taken 10/16/18] ezetimibe 10 mg PO DAILY 10/08/13 [History Last Taken 10/17/18] aspirin 81 mg PO DAILY@0800 05/16/15 [History Last Taken 10/17/18] omeprazole 40 mg PO DAILY 12/04/15 [History Last Taken 10/17/18] metoprolol succinate 25 mg tablet,extended release 24 hr 12.5 mg PO QDAY tab 08/17/17 [History Last Taken 10/17/18] tiotropium bromide 18 mcg capsule with inhalation device 1 cap INHALATION QDAY 08/17/17 [History Last Taken 10/17/18] levothyroxine 88 mcg tablet 88 mcg PO DAILY 06/11/18 [History Last Taken 10/17/18] metaxalone 800 mg PO BID 10/17/18 [History Last Taken 10/17/18] acetaminophen 650 mg PO Q4H PRN PRN tab 10/19/18 [Rx Last Taken Unknown] albuterol sulfate 1 - 2 puff INHALATION Q4H PRN PRN #1 inhaler 10/19/18 [Rx Last Taken Unknown] benzonatate 100 mg PO 4X/DAY PRN PRN #30 cap 10/19/18 [Rx Last Taken Unknown] vitamin B complex 1 tab PO DAILY 06/22/19 [History Last Taken Unknown] ascorbic acid (vitamin C) 500 mg tablet 500 mg PO DAILY 09/24/20 [History Last Taken Unknown] cholecalciferol (vitamin D3) 25 mcg (1,000 unit) tablet 25 mcg PO DAILY 09/24/20 [History Last Taken Unknown] zinc 50 mg tablet 50 mg PO DAILY 09/24/20 [History Last Taken Unknown] doxycycline hyclate 100 mg PO BID 08/29/21 [History Last Taken Unknown] nitrofurantoin monohyd/m-cryst 100 mg PO DAILY 08/29/21 [History Last Taken Unknown] Allergy/AdvReac Type Severity Reaction Status Date / Time azithromycin [From Zithromax] Allergy Hives Verified 08/29/21 15:24 cortisone [Cortisone] Allergy Swelling Verified 08/29/21 15:24 erythromycin base Allergy Other Verified 08/29/21 15:24 [Erythromycin Base] Family History (Updated 08/29/21 @ 19:[address] Clara Richey MD) Mother Cancer Hx stomach cancer. Father Cancer Hx prostate CA. Surgical History History of back surgery (~04/22/19) History of carotid endarterectomy (~2012) History of sinus surgery Social History (Updated 08/29/21 @ 19:[address] Clara Richey MD) household members: family Smoking Status: Current every day smoker tobacco type: cigarettes Smoking packs per day: 0.5 Smoking cigarettes per day: 10.0 Years smoked: 32 Smoking pack-years: 16.00 alcohol intake: never substance use type: does not use ROS ROS Narrative Admission Review of Systems: CONSTITUTIONAL: No weight loss, fever, + chills, weakness or fatigue. HEENT: + Headache. Eyes: No visual loss, blurred vision, double vision or yellow sclerae. Ears, Nose, Throat: No hearing loss, sneezing. SKIN: No rash or itching, lesions, wounds. CARDIOVASCULAR: No chest pain, chest pressure or chest discomfort, palpitations, edema, orthopnea, syncopal events. RESPIRATORY: + shortness of breath, cough, No marked sputum, wheezing, hemoptysis. GASTROINTESTINAL: + anorexia, nausea, No vomiting, diarrhea, abdominal pain, melena, BRBPR. GENITOURINARY: No dysuria, frequency, urgency or retention. NEUROLOGICAL: + headache, No dizziness, syncope, paralysis, ataxia, numbness or tingling in the extremities, focal weakness, change in bowel or bladder control, seizure. MUSCULOSKELETAL: + muscle, back pain, joint pain or stiffness. HEMATOLOGIC: No anemia, bleeding or bruising. LYMPHATICS: No enlarged nodes. No history of splenectomy. PSYCHIATRIC: No history of depression or anxiety. ENDOCRINOLOGIC: No reports of sweating, cold or heat intolerance. No polyuria or polydipsia. ALLERGIES: No history of asthma, hives, eczema or rhinitis. Vital Signs Vital Signs Vital Signs: 08/29/21 15:21 08/29/21 15:24 08/29/21 15:25 Temperature 96.9 F L 96.9 F L Temperature Source Temporal Temporal Pulse Rate 84 84 Respiratory Rate 16 16 Respiratory Effort Respiratory Depth Respiratory Pattern Blood Pressure 135/69 H Blood Pressure Mean 91 Pulse Ox 90 90 90 Oxygen Delivery Method Room Air Room Air Room Air Oxygen Flow Rate (L/min) 08/29/21 15:34 08/29/21 17:35 08/29/21 17:42 Temperature Temperature Source Pulse Rate Respiratory Rate Respiratory Effort Short of Breath Labored Respiratory Depth Normal Respiratory Pattern Normal Blood Pressure 132/65 H Blood Pressure Mean 87 Pulse Ox 96 93 Oxygen Delivery Method Nasal Cannula Nasal Cannula Nasal Cannula Oxygen Flow Rate (L/min) 2 4 4 08/29/21 17:53 08/29/21 18:06 Temperature Temperature Source Pulse Rate Respiratory Rate Respiratory Effort Respiratory Depth Respiratory Pattern Blood Pressure Blood Pressure Mean Pulse Ox 94 94 Oxygen Delivery Method Nasal Cannula Nasal Cannula Oxygen Flow Rate (L/min) 4 4 Weight Weight: 160 lb 7.944 oz Body Mass Index (BMI) 25.1 Physical Exam Narrative Physical Examination: General: Awake, alert, oriented x 3 and cooperative, seated upright in the ED bed, fatigued and ill-appearing. Skin: Normal color, normal turgor, no icterus, no cyanosis. HEENT: AT/NC, EOMI, PERRLA, mildly dry MM, no carotid bruits or JVD noted. Lungs: Diffusely diminished, greater bases, moderate effort, hoarse voice, no rales, ronchi or wheezing. Heart: Regular rate with regular rhythm; no gallop, rub audible. Abdomen: Soft, NTTP, ND, mildly hyperactive BS, no obvious HSM. Extremities: No cyanosis, clubbing, or edema. Mild R calf discomfort to palpation. Neurological: Patient awake, alert, oriented as noted, cognitive function intact; pupils equally reactive to light and accommodation, cranial nerves II-XII grossly normal, moving all 4 extremities, no focal deficits, strength moderately to severely globally decreased secondary to acute presentation. Psychiatric: Affect appears fatigued, ill-appearing, no acute evidence of depressive or anxiety feelings. Results Lab / Micro Data Result Diagrams: 08/29/21 16:00 08/29/21 16:00 Labs: Laboratory Results - last 24 hr 08/29/21 16:00: WBC 6.4, RBC 4.82, Hgb 14.6, Hct 42.8, MCV 88.8, MCH 30.3, MCHC 34.1, RDW Std Deviation 41.8, RDW Coeff of Douglas 12.7, Plt Count 234, MPV 8.6, Immature Gran % (Auto) 0.800, Neut % (Auto) 71.8 H, Lymph % (Auto) 10.3 L, [place] % (Auto) 13.8 H, Eos % (Auto) 2.8, Baso % (Auto) 0.5, Absolute Neuts (auto) 4.6, Absolute Lymphs (auto) 0.66 L, Nucleated RBC % 0 08/29/21 16:00: D-Dimer Quant (PE/DVT) 1.41 H* 08/29/21 16:00: Sodium 138, Potassium 4.2, Chloride 106, Carbon Dioxide 28.0, Anion Gap 4 L, BUN 19 H, Creatinine 1.15 H, Estim Creat Clear Calc 43.00, Est GFR (MDRD) Af Amer 60, Est GFR (MDRD) Non-Af 49 L, BUN/Creatinine Ratio 16.5, Glucose 111 H, Calcium 9.7, Troponin I High Sens 8 Radiology Impression Chest X-Ray 08/29/21 15:56 IMPRESSION: Mild hyperinflation. No acute cardiopulmonary pathology. Electronically Signed: Adi Jenkins MD at 16:33 EST , Service support , Chest CTA 08/29/21 16:29 IMPRESSION: Chronic interstitial and emphysematous changes as well as old granulomatous disease. Question rounded atelectasis in the right lower lobe. This may be further assessed utilizing FLEISCHNER Society criteria if clinically warranted No evidence for pulmonary embolus. No definitive evidence for Covid 19 pneumonia Electronically Signed: Adi Jenkins MD at 17:24 EST , Service support , Assessment & Plan Assessment/Plan (1) COVID-19: (2) Hypoxia: PLAN: The patient is a 71 y/o F w/ PMHx: Chronic COPD, Tobacco use, Carotid disease s/p R CEA, HLD, HTN who presents to the [facility] ED on 08/29/21 with history of COVID Pfizer vaccination series x 2 but has not yet received her booster with onset COVID type symptoms starting on 08/24/21 with ED presentation at that time to [place] emergency room where she had a positive Covid test progressively worsening prompting evaluation. #1. Acute Hypoxia secondary to Acute Viral Syndrome, COVID-19: Will admit to the [place] telemetry, maintain on COVID precautions, will maintain on oxygen with wean as tolerated to room air, PRN albuterol, HOB, IS parameters w/ pending sputum cultures and urine antigens, will obtain completion of COVID panel including procalcitonin, CRP, CPK, Ferritin, LDH, hepatic profile and BNP, continue supportive care including q 2 hour turning including prone given no prone bed availability and judicious hydration, closely monitor for worsening status for ARDS and multiorgan failure, will initiate and continue IV decadron x 10 doses, given presentation will also initiate IV remdesivir but defer to discretion of Infectious disease. If respiratory status worsens and patient requires airvo or BIPAP transition will initiate barcitinib regimen additionally with ID involvement. #2. Chronic COPD: Will maintain on oxygen with wean as tolerated to room air, will continue patient home inhalers and as needed albuterol encourage head of bed, I-S. #3. Tobacco Abuse: Encouraged cessation, inpatient consultation per RT, NR if desired. #4. Carotid disease: Status post right CEA, will continue aspirin, hypertensive regimen, per current list not on statin therapy but is on ezetimibe. #5. Hypertension: Continue home regimen including metoprolol with hold parameters as needed, PRN hydralazine. #6. Hyperlipidemia: Not on statin therapy per current list, continue patient home ezetimibe. #7. DVT prophylaxis: SCDs, Lovenox. #8. CODE status: Patient PEÑA is her daughter Ilda but she does not have a living will in place. Given presentation with Covid with hypoxia, discussed CODE status at length including difference between FULL code, DNR-CCA and DNR-CC status. Following discussions about the differences in these status, requested Full Code status. Patient amenable to airvo, BIPAP, remdesivir and barcitinib. Advanced Care Planning Face to Face Time: 16 minutes. Charges/Coding Visit Charges Inpatient E&M: 58321 Init Hosp L3 Procedures Hospitalists Procedures: 34673 Advncd Care Plan 30 Min
--- NOTE | 2021-08-29 18:13 | ED.RN ---
pt informed that her daughter Maria called.
[2021-08-29 18:30] LABS: Bacteria 0 SEEN /hpf (None Seen); Mucous, Urine 0 SEEN /hpf (<or=2+); Red Blood Cells-Urine 0 SEEN /hpf (0-5); Squamous Epithelial Cells - UA 0 SEEN /hpf (5-10)
[2021-08-29 18:36] LABS: Color, Urine Yellow (Yellow); Glucose, Dipstick Normal (Normal); Ketone-Dipstick 5 mg/dl (Negative); Leukocyte Esterase-Dipstick 100 /ul (Negative); Nitrite-Dipstick Negative (Negative); Occult Blood-Urine Negative /ul (Negative); Protein-Dipstick 15 mg/dl (Negative); Specific Gravity, Urine 1.015 (1.002-1.030); Urine Bilirubin Dipstick Negative (Negative); Urine Clarity Clear (Clear); Urine Urobilinogen Normal (Normal)
[2021-08-29 18:44] LABS: White Blood Cells 0-5 SEEN /hpf (0-5)
--- NOTE | 2021-08-29 19:05 | VDLE_ITS ---
Reason For Study: Pain RIGHT GSV is normal. CFV is compressible, spontaneous, phasic, competent and demonstrates normal augmentation. FV is compressible, spontaneous, phasic, competent and demonstrates normal augmentation. POP V is compressible, spontaneous, phasic, competent and demonstrates normal augmentation. T/P Trunk is compressible. PTV is compressible. RT PerV is compressible. Procedure This is a venous duplex using B-mode, color flow and spectral Doppler. Exam performed portable in patient room. The exam was abbreviated due to the COVID 19 protocol. A preliminary report was called and/or faxed to [facility]. VL/Venous Duplex US, Unilateral Interpretation Summary There is no evidence of right lower extremity deep vein thrombosis. Right great saphenous vein appears patent and compressible segmentally. Covid 19 protocol utilized Ordering Physician: Clara Richey Referring Physician: Isatu Benson Performed By: Joelle Brown RDCS, RVT
[2021-08-29 19:15] LABS: BNP,B-Type NATRIURETIC PEPTIDE 77.6 pg/mL (0-100)
[2021-08-29 19:22] LABS: AST(SGOT) 30 U/L (15-37); Alanine Aminotransfer ALT/SGPT 24 U/L (13-56); Albumin, Serum 3.4 g/dL (3.2-5.0); Alkaline Phosphatase 100 U/L (45-117); Bilirubin, Direct 0.06 mg/dL (0.00-0.30); Ferritin 150 ng/mL (8-252); Globulin 3.9 g/dL (2.2-4.2); LDH 213 U/L (84-246); Protein, Total 7.3 g/dL (6.4-8.2)
--- NOTE | 2021-08-29 20:11 | PCS.PANDOC ---
PANDEMIC DOCUMENTATION INITIATED: Date: 04/15/2021 Time: 190
[2021-08-29] MEDS: 0.9% Saline Lock 10 ML Syringe IV (21:13)
[2021-08-29] MEDS: 0.9% Normal Saline 1,000 ML 100 ML IV (21:13)
[2021-08-29 21:37] LABS: Procalcitonin 0.06 ng/mL (0.00-0.09)
[2021-08-29] MEDS: Acetaminophen 325 MG Tablet 650 MG PO (22:41)
[2021-08-29] MEDS: Benzonatate 100 MG Capsule PO (22:41)
[2021-08-29] MEDS: Metaxalone 800 MG Tablet PO (22:41)
[2021-08-29] MEDS: Escitalopram Oxalate 20 MG Tablet PO (22:41)
[2021-08-29] MEDS: Enoxaparin 30 MG/0.3 ML Syringe SC (22:43)
[2021-08-30] VITALS (23 sets, daily range): BP systolic 100–128; BP diastolic 50–66; PULSE 58–83; RESP 16–18; TEMP 36.3–36.7; O2SAT 86–100
[2021-08-30] MEDS: Ondansetron 4 MG/2 ML Vial IV (04:37)
[2021-08-30 06:35] LABS: Absolute Neutrophil Count 2.4 X10^3/uL (2.0-7.7); Basophil# 0.03 X10^3/uL; Basophil% 0.7 % (0-1); Eosinophil# 0.03 X10^3/uL; Eosinophils% 0.7 % (0-5); Hemoglobin 14.1 g/dL (12.0-15.0); Lymphocyte % 27.6 % (19-41); Mean Corp Hgb Conc 32.8 g/dL (32-36); Mean Corpuscular Hgb 30.6 pg (27.0-32.0); Mean Corpuscular Volume 93.3 fL (81-99); Monocyte# 0.68 X10^3/uL; Monocyte% 15.6 % (0-10); NRBC Flagged by Analyzer 0 % (0-5); Neutrophil # 2.38 X10^3/uL (2.7-7.7); Neutrophil % 54.7 % (47-70); Platelet Count 223 K/mm3 (150-450); RBC Distribution Width CV 13.2 % (11.6-14.6); RBC Distribution Width SD 45.2 fl (35.1-43.9); Red Blood Count 4.61 M/mm3 (4.2-5.4); White Blood Count 4.4 K/mm3 (4.4-11.0)
[2021-08-30] MEDS: Ipratropium 0.5 MG/2.5 ML SOLUTION INHALATION ×3 (07:03→19:28)
[2021-08-30 07:06] LABS: ALB/GLOB Ratio 0.8 RATIO (0.9-2.4); AST(SGOT) 26 U/L (15-37); Alanine Aminotransfer ALT/SGPT 23 U/L (13-56); Albumin, Serum 2.9 g/dL (3.2-5.0); Alkaline Phosphatase 84 U/L (45-117); Anion Gap 5 (5-15); BUN 24 mg/dL (7-18); BUN/Creat Ratio 20.9 RATIO (10-20); Calcium,Total 8.6 mg/dL (8.5-10.1); Chloride 105 mmol/L (98-107); Creatinine, Serum 1.15 mg/dL (0.55-1.02); EST Glomerular Filtration Rate 49 mL/min (>60); Est Glom Filt Rate - Afr Amer 60 mL/min (>60); Globulin 3.6 g/dL (2.2-4.2); Glucose 82 mg/dL (74-106); Potassium 4.4 mmol/L (3.5-5.1); Protein, Total 6.5 g/dL (6.4-8.2); Sodium Level 139 mmol/L (136-145)
[2021-08-30] MEDS: dexAMETHasone 4 MG/ML Vial 6 MG IV (09:04)
[2021-08-30] MEDS: Levothyroxine 88 MCG Tablet PO (09:04)
[2021-08-30] MEDS: Enoxaparin 30 MG/0.3 ML Syringe SC ×2 (09:04→22:13)
[2021-08-30] MEDS: Vitamin B Comp W-C Capsule 1 CAP PO (09:04)
[2021-08-30] MEDS: Ascorbic Acid 500 MG Tablet PO (09:04)
[2021-08-30] MEDS: Aspirin 81 MG TAB.CHEW PO (09:04)
[2021-08-30] MEDS: Ezetimibe 10 MG Tablet PO (09:04)
[2021-08-30] MEDS: Metaxalone 800 MG Tablet PO ×2 (09:04→22:11)
[2021-08-30] MEDS: 0.9% Saline Lock 10 ML Syringe IV ×2 (09:04→22:11)
[2021-08-30] MEDS: Pantoprazole Sodium 40 MG Tablet PO (09:04)
--- NOTE | 2021-08-30 09:43 | PN.HOSP_ITS ---
Subjective Subjective Patient was admitted yesterday with generalized symptoms of Covid including nausea, headache, chills, cough and shortness of breath. Denies dysuria or suprapubic pain or tenderness. Objective Data Objective Data Vital Signs: Vital Signs Temp Pulse Resp BP Pulse Ox 97.4 F L 69 18 101/51 L 94 08/30/21 08:57 08/30/21 08:57 08/30/21 08:57 08/30/21 08:57 08/30/21 08:57 Oxygen Flow Rate (L/min) [ 0 AMBULATING on Room Air] Oxygen Flow Rate (L/min) [At 0 REST on Room Air] Oxygen Flow Rate (L/min) 2 Oxygen Delivery Method Nasal Cannula Weight: 166 lb 10.711 oz Body Mass Index (BMI) 24.7 Intake & Output: Intake and Output for Last 24 Hours 08/28/21 08/29/21 08/30/21 23:59 23:59 23:59 Intake Total 150 / 150 250 / 250 Output Total 550 / 550 Balance 150 / 150 -300 / -300 Lab / Micro Data Result Diagrams: 08/30/21 05:20 08/30/21 05:20 Labs: Laboratory Results - last 24 hr 08/29/21 16:00: WBC 6.4, RBC 4.82, Hgb 14.6, Hct 42.8, MCV 88.8, MCH 30.3, MCHC 34.1, RDW Std Deviation 41.8, RDW Coeff of Douglas 12.7, Plt Count 234, MPV 8.6, Immature Gran % (Auto) 0.800, Neut % (Auto) 71.8 H, Lymph % (Auto) 10.3 L, [place] % (Auto) 13.8 H, Eos % (Auto) 2.8, Baso % (Auto) 0.5, Absolute Neuts (auto) 4.6, Absolute Lymphs (auto) 0.66 L, Nucleated RBC % 0 08/29/21 16:00: D-Dimer Quant (PE/DVT) 1.41 H* 08/29/21 16:00: Sodium 138, Potassium 4.2, Chloride 106, Carbon Dioxide 28.0, Anion Gap 4 L, BUN 19 H, Creatinine 1.15 H, Estim Creat Clear Calc 43.00, Est GFR (MDRD) Af Amer 60, Est GFR (MDRD) Non-Af 49 L, BUN/Creatinine Ratio 16.5, Glucose 111 H, Calcium 9.7, Troponin I High Sens 8 08/29/21 16:00: Ferritin 150, Total Bilirubin 0.30, Direct Bilirubin 0.06, AST 30, ALT 24, Alkaline Phosphatase 100, Lactate Dehydrogenase 213, C-React Prot Ext Range 18.60 H, Total Protein 7.3, Albumin 3.4, Globulin 3.9 08/29/21 16:00: B-Natriuretic Peptide 77.6 08/29/21 18:13: Urine Color Yellow, Urine Clarity Clear, Urine pH 6.0, Ur Specific [place]er 1.015, Urine Protein 15 H, Urine Glucose (UA) Normal, Urine Ketones 5 H, Urine Occult Blood Negative, Urine Nitrite Negative, Urine Bilirubin Negative, Urine Urobilinogen Normal, Ur Leukocyte Esterase 100 H, Urine RBC 0 SEEN, Urine WBC 0-5 SEEN, Ur Squamous Epith Cells 0 SEEN, Urine Bacteria 0 SEEN, Urine Mucus 0 SEEN 08/29/21 20:43: Procalcitonin 0.06 08/30/21 05:20: WBC 4.4, RBC 4.61, Hgb 14.1, Hct 43.0, MCV 93.3 D, MCH 30.6, MCHC 32.8, RDW Std Deviation 45.2 H, RDW Coeff of Douglas 13.2, Plt Count 223, MPV 9.0, Immature Gran % (Auto) 0.700, Neut % (Auto) 54.7, Lymph % (Auto) 27.6, [place] % (Auto) 15.6 H, Eos % (Auto) 0.7, Baso % (Auto) 0.7, Absolute Neuts (auto) 2.4, Absolute Lymphs (auto) 1.20, Nucleated RBC % 0 08/30/21 05:20: Sodium 139, Potassium 4.4, Chloride 105, Carbon Dioxide 29.0, Anion Gap 5, BUN 24 H, Creatinine 1.15 H, Estim Creat Clear Calc 43.00, Est GFR (MDRD) Af Amer 60, Est GFR (MDRD) Non-Af 49 L, BUN/Creatinine Ratio 20.9 H, Glucose 82, Calcium 8.6, Total Bilirubin 0.10 L, AST 26, ALT 23, Alkaline Phosphatase 84, Total Protein 6.5, Albumin 2.9 L, Globulin 3.6, Albumin/Globulin Ratio 0.8 L Micro: Microbiology 08/29/21 18:13 Urine, Clean Catch Streptococcus pneumoniae Antigen (M - Final 08/29/21 18:13 Urine, Clean Catch Legionella Antigen - Final 08/29/21 18:16 Nasal Secretion SARS-CoV-2 Antigen (Rapid) - Final SARS-CoV-2 (COVID 19) Radiography Diagnostic Testing: Radiology Impression Chest X-Ray 08/29/21 15:56 IMPRESSION: Mild hyperinflation. No acute cardiopulmonary pathology. Electronically Signed: Adi Jenkins MD at 16:33 EST , Service support , Chest CTA 08/29/21 16:29 IMPRESSION: Chronic interstitial and emphysematous changes as well as old granulomatous disease. Question rounded atelectasis in the right lower lobe. This may be further assessed utilizing FLEISCHNER Society criteria if clinically warranted No evidence for pulmonary embolus. No definitive evidence for Covid 19 pneumonia Physical Exam Narrative General: Alert, Oriented x3, Cooperative HEENT: Atraumatic, PERRLA, EOMI, Normocephalic Oral: No Gingival or Mucosal Lesions/ Ulcerations Neck: Supple, No JVD, Negative Carotid Bruits Lungs: Air entry diminished in bilateral lung bases. Mild expiratory crepitations Cardiovascular: Regular rate, Regular Rhythm, Normal S1, Normal S2, No murmurs Abdomen: Bowel Sounds Present, Soft, Non Tender, Non-Distended : No renal angle tenderness. No suprapubic tenderness. Extremities: No edema, Capillary Refill Less than 3 Seconds Skin: No rashes, No breakdown Musculoskeletal: No Tenderness to Palpation of Joints or Extremities Neurological: Cranial nerves II-XII grossly intact, DTR 2+/4 and Symmetrical, Neuro grossly intact Psych/Mental Status: Flat affect Assessment & Plan Assessment/Plan (1) COVID-19: (2) Hypoxia: PLAN: The patient is a 71 y/o F with history of COVID Pfizer vaccination series x 2 but not boosted tested positive of Covid in [facility] on [address] admitted with shortness of breath cough and other symptoms of Covid #1. Acute bilateral COVID-19 pneumonia with hypoxia: Patient is on dexamethaso ne and remdesivir. If patient needs airflow, BiPAP or high oxygen requirement, will need ID consult for baricitinib. Incentive spirometry, Pep and Mucinex D. Procalcitonin normal. Troponin and BNP normal. D-dimer and CRP elevated. #2. COPD: Continue DuoNeb scheduled and albuterol as needed. Rest as mentioned above #3. Tobacco Abuse: Encouraged cessation, inpatient consultation. #4. Carotid disease: Status post right CEA, continue aspirin, antihypertensive, as per home med list, not on statin therapy but is on ezetimibe. #5. Hypertension: Continue home regimen including metoprolol. As needed hydralazine #6. Hyperlipidemia: As mentioned #7. DVT prophylaxis: SCDs, Lovenox. #8. CODE status: Full code Active Medications Acetaminophen (Acetaminophen 325 Mg Tablet) 650 mg PO Q4H PRN PRN PRN Reason: Fever, pain 1-06/09 Last Admin: 08/30/21 15:45 Dose: 650 mg Documented by: Al Hydroxide/Mg Hydroxide (Mag Hydrox/Al Hydrox/Simeth 30 Ml Udc) 30 ml PO Q6H PRN PRN PRN Reason: Gastric Burning Albuterol Sulfate (Albuterol Sulfate 8 Gm Inhaler (60 Puffs)) 1 - 2 puff INHALATION Q4H PRN PRN PRN Reason: Sob &/Or Wheezing Alprazolam (Alprazolam 0.25 Mg Tablet) 0.25 mg PO BID PRN PRN PRN Reason: ANXIETY Ascorbic Acid (Ascorbic Acid 500 Mg Tablet) 500 mg PO DAILY [facility] Last Admin: 08/30/21 09:04 Dose: 500 mg Documented by: Aspirin (Aspirin 81 Mg Tab.Chew) 81 mg PO DAILY@0800 [facility] Last Admin: 08/30/21 09:04 Dose: 81 mg Documented by: Benzonatate (Benzonatate 100 Mg Capsule) 100 mg PO 4X/DAY PRN PRN PRN Reason: COUGH Last Admin: 08/29/21 22:41 Dose: 100 mg Documented by: Dexamethasone Sodium Phosphate (Dexamethasone 4 Mg/Ml Vial) 6 mg IV DAILY [facility] Stop: 09/08/21 10:01 Last Admin: 08/30/21 09:04 Dose: 6 mg Documented by: Ezetimibe (Ezetimibe 10 Mg Tablet) 10 mg PO DAILY [facility] Last Admin: 08/30/21 09:04 Dose: 10 mg Documented by: Enoxaparin Sodium (Enoxaparin 30 Mg/0.3 Ml Syringe) 30 mg SC BID [facility] Last Admin: 08/30/21 09:04 Dose: 30 mg Documented by: Escitalopram Oxalate (Escitalopram Oxalate 20 Mg Tablet) 20 mg PO QHS [facility] Last Admin: 08/29/21 22:41 Dose: 20 mg Documented by: Guaifenesin (Guaifenesin 10 Ml Udc (200mg/10ml)) 20 ml PO Q4H PRN PRN PRN Reason: COUGH/CONGESTION Last Admin: 08/30/21 15:45 Dose: 20 ml Documented by: Hydralazine HCl (Hydralazine 20 Mg/Ml Vial) 10 mg IV Q4H PRN PRN PRN Reason: SBP > 160 Remdesivir 100 mg/ Sodium (Chloride) 250 mls @ 125 mls/hr IV Q24H [facility]; Protocol Stop: 09/02/21 23:59 Sodium Chloride () 250 mls @ 15 mls/hr IV .[id number] PRN PRN Reason: Saline Flush Ipratropium [place] (Ipratropium 0.5 Mg/2.5 Ml Solution) 0.5 mg INHALATION Q6HWA.RT [facility] Last Admin: 08/30/21 13:06 Dose: 0.5 mg Documented by: Levothyroxine Sodium (Levothyroxine 88 Mcg Tablet) 88 mcg PO DAILY [facility] Last Admin: 08/30/21 09:04 Dose: 88 mcg Documented by: Loperamide HCl (Loperamide 2 Mg Capsule) 2 mg PO Q2H PRN PRN PRN Reason: Diarrhea Melatonin (Melatonin 3 Mg Tablet) 3 mg PO QHS PRN PRN PRN Reason: INSOMNIA Metaxalone (Metaxalone 800 Mg Tablet) 800 mg PO BID [facility] Last Admin: 08/30/21 09:04 Dose: 800 mg Documented by: Metoprolol Succinate (Metoprolol(Xl)Succ 25 Mg Tablet) 12.5 mg PO DAILY [facility] Last Admin: 08/30/21 11:02 Dose: 12.5 mg Documented by: Multivitamins (Vitamin B Comp W-C Capsule) 1 capsule PO DAILY [facility] Last Admin: 08/30/21 09:04 Dose: 1 capsule Documented by: Ondansetron HCl (Ondansetron 4 Mg/2 Ml Vial) 4 mg IV Q8H PRN PRN PRN Reason: NAUSEA/VOMITING Last Admin: 08/30/21 04:37 Dose: 4 mg Documented by: Pantoprazole Sodium (Pantoprazole Sodium 40 Mg Tablet) 40 mg PO DAILY [facility] Last Admin: 08/30/21 09:04 Dose: 40 mg Documented by: Prochlorperazine Edisylate (Prochlorperazine 10 Mg/2 Ml Vial) 5 mg IV Q4H PRN P RN PRN Reason: Breakthrough nausea/vomiting Sodium Chloride (0.9% Saline Lock 10 Ml Syringe) 10 - 40 ml IV UD PRN PRN Reason: SALINE FLUSH Last Admin: 08/30/21 09:04 Dose: 10 ml Documented by: Throat Lozenges (Benzocaine/Menthol 1 Lozenge) 1 lozenge MUCOUS MEM Q2H PRN PRN PRN Reason: SORE THROAT Zinc Sulfate (Zinc Sulfate (50mg Elemental) 220 Mg Capsule) 220 mg PO DAILY [facility] Last Admin: 08/30/21 09:04 Dose: 220 mg Documented by: Charges/Coding Visit Charges Inpatient E&M: 52856 Subs Hosp L2
[2021-08-30] MEDS: Metoprolol(XL)Succ 25 MG Tablet 12.5 MG PO (11:02)
--- NOTE | 2021-08-30 15:30 | CASEMGMT ---
RN MONISHA DISH CARRIER MONISHA placed call to pt's room for initial transition planning/care coordination assessment. GISSEL BEARDEN introduced self and role at [facility]. Pt voices understanding and consents to assessment at this time. Pt is A/O at this time and answers all questions appropriately. Care providers, pharmacy, and demographics verified/updated at this time. COVID testing done @ [facility] 08/29. PCP: Isatu Benson NP Specialists: Dr Sullivan--cardiology, Dr Huizar--pulmonology Preferred Pharmacy: [facility] Insurance:[employer] [facility] Prescription Benefit: Yes Living Will/HPOA: Does not have LW. Has HPOA, who is her daughter, Maria LNOK: Daughter/POA, Maria Hemperly. Daughter, Yuliya Aguilera Living Arrangements: Lives w/Maria in one-story home w/2 steps to enter. Maria has not been ill. Pt able to isolate in separate bedroom and bathrooms once returns home. Pt was independent prior to COVID illness. Transportation: Pt states drives self and states no transportation concerns at this time. Dtr Yuliya also drives. DME: States has the following DME available, but does not use: shower chair, BSC, rollator, and W/C. Has a CPAP but does not use it often. Recommended to get a pulse ox. If pt qualifies for Home O2, she has no preference of DME co. HHC/SNF: No hx of SNF. Has had HHC in the past after back surgery. Declines need for HHC. Pt wishes to return home and states has no concerns with going home at time of discharge. Nursing or CM to follow for home oxygen needs. Pt voices no further concerns/needs at this time. PLAN: Home. Follow for any Home O2 needs @ d/c. Green sheet on chart with Home O2 set up instructions if O2 is needed. Eileen ROCHAN GISSEL BEARDEN
[2021-08-30] MEDS: Acetaminophen 325 MG Tablet 650 MG PO (15:45)
[2021-08-30] MEDS: guaiFENesin 10 ML UDC (200MG/10ML) 20 ML PO ×2 (15:45→22:13)
[2021-08-30] MEDS: BENZOCAINE/MENTHOL 1 LOZENGE MUCOUS MEM (18:55)
[2021-08-30] MEDS: Benzonatate 100 MG Capsule PO (18:55)
[2021-08-30] MEDS: Escitalopram Oxalate 20 MG Tablet PO (22:12)
[2021-08-31] VITALS (22 sets, daily range): BP systolic 103–129; BP diastolic 50–64; PULSE 54–82; RESP 16–20; TEMP 36.6–36.8; O2SAT 88–98
[2021-08-31] MEDS: 0.9% Saline Lock 10 ML Syringe IV ×3 (03:12→21:34)
[2021-08-31 05:58] LABS: Absolute Lymphocyte Count 1.04 X10^3/uL (0.83-4.51); Absolute Neutrophil Count 2.3 X10^3/uL (2.0-7.7); Basophil# 0.01 X10^3/uL; Basophil% 0.2 % (0-1); Eosinophil# 0.01 X10^3/uL; Eosinophils% 0.2 % (0-5); Hematocrit 39.2 % (37-47); Hemoglobin 13.2 g/dL (12.0-15.0); Lymphocyte # 1.04 X10^3/ul (0.83-4.51); Lymphocyte % 25.8 % (19-41); Mean Corp Hgb Conc 33.7 g/dL (32-36); Mean Corpuscular Hgb 30.8 pg (27.0-32.0); Mean Corpuscular Volume 91.4 fL (81-99); Mean Platelet Vol. 9.3 fl (6.2-12.0); Monocyte# 0.61 X10^3/uL; Monocyte% 15.1 % (0-10); NRBC Flagged by Analyzer 0 % (0-5); Neutrophil # 2.34 X10^3/uL (2.7-7.7); Neutrophil % 58.2 % (47-70); Platelet Count 210 K/mm3 (150-450); RBC Distribution Width CV 13.2 % (11.6-14.6); RBC Distribution Width SD 44.7 fl (35.1-43.9); Red Blood Count 4.29 M/mm3 (4.2-5.4)
[2021-08-31 06:42] LABS: ALB/GLOB Ratio 0.8 RATIO (0.9-2.4); AST(SGOT) 25 U/L (15-37); Alanine Aminotransfer ALT/SGPT 25 U/L (13-56); Albumin, Serum 2.8 g/dL (3.2-5.0); Alkaline Phosphatase 78 U/L (45-117); Anion Gap 5 (5-15); BUN 25 mg/dL (7-18); BUN/Creat Ratio 23.8 RATIO (10-20); Calcium,Total 8.8 mg/dL (8.5-10.1); Chloride 105 mmol/L (98-107); Creatinine, Serum 1.05 mg/dL (0.55-1.02); EST Glomerular Filtration Rate 55 mL/min (>60); Est Glom Filt Rate - Afr Amer 66 mL/min (>60); Globulin 3.4 g/dL (2.2-4.2); Glucose 85 mg/dL (74-106); Potassium 4.3 mmol/L (3.5-5.1); Protein, Total 6.2 g/dL (6.4-8.2); Sodium Level 138 mmol/L (136-145)
[2021-08-31] MEDS: Ipratropium 0.5 MG/2.5 ML SOLUTION INHALATION ×2 (07:07→13:41)
[2021-08-31] MEDS: Levothyroxine 88 MCG Tablet PO (08:58)
[2021-08-31] MEDS: Metoprolol(XL)Succ 25 MG Tablet 12.5 MG PO (08:58)
[2021-08-31] MEDS: Ascorbic Acid 500 MG Tablet PO (08:58)
[2021-08-31] MEDS: Aspirin 81 MG TAB.CHEW PO (08:58)
[2021-08-31] MEDS: Pantoprazole Sodium 40 MG Tablet PO (08:58)
[2021-08-31] MEDS: Ezetimibe 10 MG Tablet PO (08:58)
[2021-08-31] MEDS: Vitamin B Comp W-C Capsule 1 CAP PO (08:58)
[2021-08-31] MEDS: dexAMETHasone 4 MG/ML Vial 6 MG IV (08:58)
[2021-08-31] MEDS: Enoxaparin 30 MG/0.3 ML Syringe SC ×2 (08:59→21:30)
[2021-08-31] MEDS: Metaxalone 800 MG Tablet PO (08:59)
[2021-08-31] MEDS: Acetaminophen 325 MG Tablet 650 MG PO ×2 (09:14→21:46)
--- NOTE | 2021-08-31 14:42 | PN.HOSP_ITS ---
Subjective Subjective Patient no fever or chills. On 2 L of oxygen but having persistent cough mainly dry. Started on Robitussin-AC. Objective Data Objective Data Vital Signs: Vital Signs Temp Pulse Resp BP Pulse Ox 98.1 F 63 16 116/50 L 93 08/31/21 14:25 08/31/21 14:25 08/31/21 14:25 08/31/21 14:25 08/31/21 14:25 Oxygen Flow Rate (L/min) [ 1 AMBULATING with Oxygen #1] Oxygen Flow Rate (L/min) [ 0 AMBULATING on Room Air] Oxygen Flow Rate (L/min) [At 0 REST on Room Air] Oxygen Flow Rate (L/min) 2 Oxygen Delivery Method Nasal Cannula Weight: 166 lb 0.129 oz Body Mass Index (BMI) 24.7 Intake & Output: Intake and Output for Last 24 Hours 08/29/21 08/30/21 08/31/21 23:59 23:59 23:59 Intake Total 150 / 150 2600 / 2600 750 / 750 Output Total 550 / 550 Balance 150 / 150 2050 / 2050 750 / 750 Medical Nutrition Assessment Dietitian: Malnutrition Criteria Met Start: 08/30/21 12:54 Freq: Status: Active Protocol: Document 08/30/21 12:54 (Rec: 08/30/21 12:54 [id number]) Nutrition Malnutrition Evidence of Malnutrition Exists Yes Malnutrition (severe): Acute Illness/Injury Evidenced By Suboptimal Energy Intake ( Severe),Weight Loss (Severe) Clinical Problem Acute Disease or Injury Related Malnutrition Etiology severe, acute malnutrition r/t inadequate energy intake w/ COVID illness Signs/Symptoms as evidenced by unintentional wt loss of 4.4#/2.7% x 1 week, estimated PO intake meeting < 50% of estimated energy needs x 1 week Status Active Problem Recommendation Dietitian Recommendations/Changes liberalize diet to regular given acute malnutrition; continue ensure compact TID w/ meals for additional calories /protein if consumed Lab / Micro Data Result Diagrams: 08/31/21 04:45 08/31/21 04:45 Labs: Laboratory Results - last 24 hr 08/31/21 04:45: WBC 4.0 L, RBC 4.29, Hgb 13.2, Hct 39.2, MCV 91.4, MCH 30.8, MCHC 33.7, RDW Std Deviation 44.7 H, RDW Coeff of Duoglas 13.2, Plt Count 210, MPV 9.3, Immature Gran % (Auto) 0.500, Neut % (Auto) 58.2, Lymph % (Auto) 25.8, Wilkinson % (Auto) 15.1 H, Eos % (Auto) 0.2, Baso % (Auto) 0.2, Absolute Neuts (auto) 2.3, Absolute Lymphs (auto) 1.04, Nucleated RBC % 0 08/31/21 04:45: Sodium 138, Potassium 4.3, Chloride 105, Carbon Dioxide 28.0, Anion Gap 5, BUN 25 H, Creatinine 1.05 H, Estim Creat Clear Calc 47.10, Est GFR (MDRD) Af Amer 66, Est GFR (MDRD) Non-Af 55 L, BUN/Creatinine Ratio 23.8 H, Glucose 85, Calcium 8.8, Total Bilirubin 0.10 L, AST 25, ALT 25, Alkaline Phosphatase 78, Total Protein 6.2 L, Albumin 2.8 L, Globulin 3.4, Albumin/Globulin Ratio 0.8 L Micro: Microbiology 08/29/21 18:13 Urine, Clean Catch Streptococcus pneumoniae Antigen (M - Final 08/29/21 18:13 Urine, Clean Catch Legionella Antigen - Final 08/29/21 18:16 Nasal Secretion SARS-CoV-2 Antigen (Rapid) - Final SARS-CoV-2 (COVID 19) Radiography Diagnostic Testing: Radiology Impression Venous Doppler Study 08/29/21 19:05 Interpretation Summary There is no evidence of right lower extremity deep vein thrombosis. Right great saphenous vein appears patent and compressible segmentally. Covid 19 protocol utilized __ Ordering Physician: Clara Richey Referring Physician: Isatu Benson Performed By: Joelle Brown, ROLANDO, RVT Physical Exam Narrative Seen and examined. Persistent coughing bout with mild distress. General: Alert, Oriented x3, Cooperative HEENT: Atraumatic, PERRLA, EOMI, Normocephalic Oral: No Gingival or Mucosal Lesions/ Ulcerations Neck: Supple, No JVD, Negative Carotid Bruits Lungs: Air entry diminished in bilateral lung bases. Mild expiratory crepitations Cardiovascular: Regular rate, Regular Rhythm, Normal S1, Normal S2, No murmurs Abdomen: Bowel Sounds Present, Soft, Non Tender, Non-Distended : No renal angle tenderness. No suprapubic tenderness. Extremities: No edema, Capillary Refill Less than 3 Seconds Skin: No rashes, No breakdown Musculoskeletal: No Tenderness to Palpation of Joints or Extremities Neurological: Cranial nerves II-XII grossly intact, DTR 2+/4 and Symmetrical, Neuro grossly intact Psych/Mental Status: Flat affect Assessment & Plan Assessment/Plan (1) COVID-19: (2) Hypoxia: PLAN: The patient is a 71 y/o F with history of COVID Pfizer vaccination series x 2 but not boosted tested positive of Covid in [place] [facility] on admitted with shortness of breath cough and other symptoms of Covid #1. Acute bilateral COVID-19 pneumonia with hypoxia: Patient is on dexamethasone and remdesivir. If patient needs airflow, BiPAP or high oxygen requirement, will need ID consult for baricitinib. Incentive spirometry, Pep and Mucinex D. Procalcitonin normal. Troponin and BNP normal. D-dimer and CRP elevated. 08/31: Started on Robitussin-AC. Patient also has anxiety and she is on Xanax, Lexapro. #2. COPD: Continue DuoNeb scheduled and albuterol as needed. Rest as mentioned above #3. Tobacco Abuse: Encouraged cessation, inpatient consultation. #4. Carotid disease: Status post right CEA, continue aspirin, antihypertensive, as per home med list, not on statin therapy but is on ezetimibe. #5. Hypertension: Continue home regimen including metoprolol. As needed hydralazine #6. Hyperlipidemia: As mentioned #7. DVT prophylaxis: SCDs, Lovenox. #8. CODE status: Full code Charges/Coding Visit Charges Inpatient E&M: 07599 Subs Hosp L2
[2021-08-31] MEDS: guaiFENesin/Codeine 5 ML UDC 10 ML PO ×2 (15:53→21:30)
[2021-08-31] MEDS: Escitalopram Oxalate 20 MG Tablet PO (21:30)
[2021-08-31] MEDS: Albuterol Sulfate 8 gm Inhaler (60 puffs) INHALATION (21:47)
[2021-08-31] MEDS: BENZOCAINE/MENTHOL 1 LOZENGE MUCOUS MEM (22:17)
[2021-09-01] VITALS (13 sets, daily range): BP systolic 106–150; BP diastolic 55–63; PULSE 53–84; RESP 16–20; TEMP 36.3–36.9; O2SAT 87–97
[2021-09-01] MEDS: guaiFENesin/Codeine 5 ML UDC 10 ML PO ×2 (03:56→08:26)
[2021-09-01] MEDS: 0.9% Saline Lock 10 ML Syringe IV (04:00)
[2021-09-01 06:56] LABS: Absolute Lymphocyte Count 1.67 X10^3/uL (0.83-4.51); Absolute Neutrophil Count 2.1 X10^3/uL (2.0-7.7); Basophil# 0.01 X10^3/uL; Basophil% 0.2 % (0-1); Eosinophil# 0.03 X10^3/uL; Eosinophils% 0.7 % (0-5); Hematocrit 40.6 % (37-47); Hemoglobin 13.5 g/dL (12.0-15.0); Lymphocyte # 1.67 X10^3/ul (0.83-4.51); Lymphocyte % 38.7 % (19-41); Mean Corp Hgb Conc 33.3 g/dL (32-36); Mean Corpuscular Hgb 30.5 pg (27.0-32.0); Mean Corpuscular Volume 91.6 fL (81-99); Monocyte# 0.48 X10^3/uL; Monocyte% 11.1 % (0-10); NRBC Flagged by Analyzer 0 % (0-5); Neutrophil % 48.8 % (47-70); Platelet Count 207 K/mm3 (150-450); RBC Distribution Width SD 44.3 fl (35.1-43.9); Red Blood Count 4.43 M/mm3 (4.2-5.4); White Blood Count 4.3 K/mm3 (4.4-11.0)
[2021-09-01] MEDS: Ipratropium 0.5 MG/2.5 ML SOLUTION INHALATION ×2 (07:20→12:14)
[2021-09-01 07:21] LABS: ALB/GLOB Ratio 0.8 RATIO (0.9-2.4); AST(SGOT) 23 U/L (15-37); Alanine Aminotransfer ALT/SGPT 24 U/L (13-56); Albumin, Serum 2.7 g/dL (3.2-5.0); Alkaline Phosphatase 73 U/L (45-117); Anion Gap 4 (5-15); BUN 26 mg/dL (7-18); BUN/Creat Ratio 24.5 RATIO (10-20); Calcium,Total 9.1 mg/dL (8.5-10.1); Chloride 106 mmol/L (98-107); Creatinine, Serum 1.06 mg/dL (0.55-1.02); EST Glomerular Filtration Rate 54 mL/min (>60); Est Glom Filt Rate - Afr Amer 66 mL/min (>60); Estimated Creatinine Clearance 46.65 ml/min; Globulin 3.4 g/dL (2.2-4.2); Glucose 86 mg/dL (74-106); Potassium 4.1 mmol/L (3.5-5.1); Protein, Total 6.1 g/dL (6.4-8.2); Sodium Level 139 mmol/L (136-145)
[2021-09-01] MEDS: Levothyroxine 88 MCG Tablet PO (09:44)
[2021-09-01] MEDS: Ezetimibe 10 MG Tablet PO (09:44)
[2021-09-01] MEDS: Aspirin 81 MG TAB.CHEW PO (09:44)
[2021-09-01] MEDS: Vitamin B Comp W-C Capsule 1 CAP PO (09:44)
[2021-09-01] MEDS: dexAMETHasone 4 MG/ML Vial 6 MG IV (09:44)
[2021-09-01] MEDS: Ascorbic Acid 500 MG Tablet PO (09:44)
[2021-09-01] MEDS: Enoxaparin 30 MG/0.3 ML Syringe SC (09:45)
[2021-09-01] MEDS: Pantoprazole Sodium 40 MG Tablet PO (09:45)
--- NOTE | 2021-09-01 10:15 | DCINST_ITS ---
Discharge Instructions Diet Discharge Diet: No restrictions Activity Discharge Activity: Return to Normal Activity and May Not Drive Weight Bearing Status: Weight bearing as tolerated Additional Activity Instructions:: Self quarantine until 09/14/21 Dressing / Incision Call your doctor if you observe: Fever of 101 or Higher, Coldness, Increased Pain, Numbness or Tingling, Change in Color, Inability to urinate, Inability to have a bowel movement, Shortness of breath, Dizziness, Fainting spells, Swelling in the ankles, Chest pain, Prolonged hiccupping, Increased palpitations (irregular heartbeat), Calf discomfort and Uncontrolled pain Follow Up Care Test Results: Test results from this visit will be discussed in further detail at your follow-up appointment, if applicable. Discharge Plan Admission Admit Date/Time: 08/29/21 18:14 Primary Reason for Your Visit: Bilateral COVID-19 pneumonia Attending Provider: Mick Miranda Primary Care Provider: Isatu Benson DOT ETCHER APPRENTICE Instructions Additional Instructions / Restrictions: Advised to continue incentive spirometry and PEP at home Discharge Orders/Prescriptions Prescriptions: New pseudoephedrine-guaifenesin [Mucus D] 60-600 mg tablet extended release 12 hr 2 tab PO BID PRN (Reason: cold symptoms) Qty: 14 RF: 0 Eliquis 2.5 mg tablet 2.5 mg PO BID Qty: 30 RF: 0 dexamethasone 6 mg tablet 6 mg PO DAILY Qty: 7 RF: 0 Continued metoprolol succinate 25 mg tablet extended release 24 hr 12.5 mg PO QDAY RF: 0 tiotropium bromide [Spiriva with HandiHaler] 18 mcg capsule, w/inhalation device 1 cap INHALATION QDAY RF: 0 levothyroxine 88 mcg tablet 88 mcg PO DAILY RF: 0 vitamin B complex [B Complex 1] Tablet 1 tab PO DAILY RF: 0 cholecalciferol (vitamin D3) 25 mcg (1,000 unit) tablet 25 mcg PO DAILY RF: 0 zinc 50 mg tablet 50 mg PO DAILY RF: 0 ascorbic acid (vitamin C) 500 mg tablet 500 mg PO DAILY RF: 0 alprazolam 0.5 MG tablet 0.25 mg PO BID PRN PRN (Reason: Anxiety) RF: 0 escitalopram oxalate 20 MG tablet 20 mg PO QHS RF: 0 ezetimibe 10 MG tablet 10 mg PO DAILY RF: 0 aspirin 81 MG tablet,chewable 81 mg PO DAILY@0800 RF: 0 omeprazole 20 MG capsule 40 mg PO DAILY RF: 0 acetaminophen 325 MG tablet 650 mg PO Q4H PRN PRN (Reason: FEVER) RF: 0 benzonatate 100 MG capsule 100 mg PO 4X/DAY PRN PRN (Reason: Cough) Qty: 30 RF: 0 albuterol sulfate 1 INHALER inhaler 1 - 2 puff inhalation Q4H PRN PRN (Reason: Sob &/Or Wheezing) Qty: 1 RF: 0 Held metaxalone 800 MG tablet 800 mg PO BID RF: 0 Hold Instructions: Resume on 09/08/21. Hold for 1 week while she is taking Mucinex D because of interaction Discontinued doxycycline hyclate 100 mg capsule 100 mg PO BID RF: 0 nitrofurantoin monohyd/m-cryst 100 mg capsule 100 mg PO DAILY RF: 0 Referrals / Follow Up: Isatu Benson DOT ETCHER APPRENTICE, DOT ETCHER APPRENTICE-C [Primary Care Provider] - Within 2 Weeks (For Booster COVID- 19 vaccine once out of isolation) Disposition Disposition (needs filled in before D/C Order can be placed): Home, Self Care
--- NOTE | 2021-09-01 10:23 | DS.PCM_ITS ---
Providers Date of Admission: 08/29/21 Primary Care Physician: GILLIAN FraserC Reason For Visit: COVID, HYPOXIA Diagnosis Discharge Diagnosis (1) COVID-19: Status: Acute Code(s): U07.1 - COVID-19 (2) Hypoxia: Status: Acute Code(s): R09.02 - Hypoxemia Medications at Discharge Home Medications alprazolam 0.25 mg PO BID PRN PRN 10/08/13 escitalopram oxalate 20 mg PO QHS 10/08/13 ezetimibe 10 mg PO DAILY 10/08/13 aspirin 81 mg PO DAILY@0800 05/16/15 omeprazole 40 mg PO DAILY 12/04/15 metoprolol succinate 25 mg tablet,extended release 24 hr 12.5 mg PO QDAY tab 08/17/17 tiotropium bromide 18 mcg capsule with inhalation device 1 cap INHALATION QDAY 08/17/17 levothyroxine 88 mcg tablet 88 mcg PO DAILY 06/11/18 metaxalone 800 mg PO BID 10/17/18 acetaminophen 650 mg PO Q4H PRN PRN tab 10/19/18 albuterol sulfate 1 - 2 puff INHALATION Q4H PRN PRN #1 inhaler 10/19/18 benzonatate 100 mg PO 4X/DAY PRN PRN #30 cap 10/19/18 vitamin B complex 1 tab PO DAILY 06/22/19 ascorbic acid (vitamin C) 500 mg tablet 500 mg PO DAILY 09/24/20 cholecalciferol (vitamin D3) 25 mcg (1,000 unit) tablet 25 mcg PO DAILY 09/24/20 zinc 50 mg tablet 50 mg PO DAILY 09/24/20 apixaban [Eliquis] 2.5 mg PO BID #30 tab 09/01/21 dexamethasone 6 mg PO DAILY #7 tab 09/01/21 pseudoephedrine-guaifenesin [Mucus D] 2 tab PO BID PRN #14 tab 09/01/21 Hospital Course Summary of Care Provided Hospital Course: The patient is a 71 y/o F with history of COVID Pfizer vaccination series x 2 but not boosted tested positive of Covid in [facility] on admitted with shortness of breath cough and other symptoms of Covid #1. Acute bilateral COVID-19 pneumonia with hypoxia: Patient is on dexamethasone and remdesivir. If patient needs airflow, BiPAP or high oxygen requirement, will need ID consult for baricitinib. Incentive spirometry, Pep and Mucinex D. Procalcitonin normal. Troponin and BNP normal. D-dimer and CRP elevated. On 08/31: Started on Robitussin-AC. Patient also has anxiety and she is on Xanax, Lexapro. Her cough has much improved. Hypoxia resolved on room air. Does not require further oxygen. Patient is discharged on Mucinex DM, Eliquis 2.5 mg twice daily for DVT prophylaxis and dexamethasone to complete a total of 10 days. Advised to continue incentive spirometry and Pep. Follow with PCP for booster COVID-19 vaccine #2. COPD: Continue DuoNeb scheduled and albuterol as needed. Rest as mentioned above #3. Tobacco Abuse: Encouraged cessation, inpatient consultation. #4. Carotid disease: Status post right CEA, continue aspirin, antihypertensive, as per home med list, not on statin therapy but is on ezetimibe. #5. Hypertension: Continue home regimen including metoprolol. As needed hydralazine #6. Hyperlipidemia: As mentioned #7. DVT prophylaxis: SCDs, Lovenox. #8. CODE status: Full code Discharge medication reconciliation done. Discharge follow-up instructions completed. Discharge process discussed with the patient and all questions were answered to patient's satisfaction. Discharged home Total time spent, exact 35 minutes on discharge meds reconciliation, examination, coordination of care with nurses and ancillary staff, review of imaging and blood test and discussion with the patient on follow-up instructions Physical Exam Narrative Cough is much improved. Patient has mild fatigue and weakness. Advised active mobilization within home. General: Alert, Oriented x3, Cooperative HEENT: Atraumatic, PERRLA, EOMI, Normocephalic Oral: No Gingival or Mucosal Lesions/ Ulcerations Neck: Supple, No JVD, Negative Carotid Bruits Lungs: Air entry diminished in bilateral lung bases. Lungs clear. No tach ypnea or hypoxia Cardiovascular: Regular rate, Regular Rhythm, Normal S1, Normal S2, No murmurs Abdomen: Bowel Sounds Present, Soft, Non Tender, Non-Distended : No renal angle tenderness. No suprapubic tenderness. Extremities: No edema, Capillary Refill Less than 3 Seconds Skin: No rashes, No breakdown Musculoskeletal: No Tenderness to Palpation of Joints or Extremities Neurological: Cranial nerves II-XII grossly intact, DTR 2+/4 and Symmetrical, Neuro grossly intact Psych/Mental Status: Flat affect Medical Records Data Medical Nutrition Assessment Dietitian: Malnutrition Criteria Met Start: 08/30/21 12:54 Freq: Status: Active Protocol: Document 08/30/21 12:54 (Rec: 08/30/21 12:54 AG [id number]) Nutrition Malnutrition Evidence of Malnutrition Exists Yes Malnutrition (severe): Acute Illness/Injury Evidenced By Suboptimal Energy Intake ( Severe),Weight Loss (Severe) Clinical Problem Acute Disease or Injury Related Malnutrition Etiology severe, acute malnutrition r/t inadequate energy intake w/ COVID illness Signs/Symptoms as evidenced by unintentional wt loss of 4.4#/2.7% x 1 week, estimated PO intake meeting < 50% of estimated energy needs x 1 week Status Active Problem Recommendation Dietitian Recommendations/Changes liberalize diet to regular given acute malnutrition; continue ensure compact TID w/ meals for additional calories /protein if consumed Weight / BMI Weight Weight: 164 lb 0.383 oz Body Mass Index (BMI) 24.7 ABG / Lab / Microbiology Data Result Diagrams: 09/01/21 06:20 09/01/21 06:30 Laboratory: Laboratory Results - last 24 hr 09/01/21 06:20: WBC 4.3 L, RBC 4.43, Hgb 13.5, Hct 40.6, MCV 91.6, MCH 30.5, MCHC 33.3, RDW Std Deviation 44.3 H, RDW Coeff of Douglas 13.0, Plt Count 207, MPV 9.0, Immature Gran % (Auto) 0.500, Neut % (Auto) 48.8, Lymph % (Auto) 38.7, Stanton % (Auto) 11.1 H, Eos % (Auto) 0.7, Baso % (Auto) 0.2, Absolute Neuts (auto) 2.1, Absolute Lymphs (auto) 1.67, Nucleated RBC % 0 09/01/21 06:30: Sodium 139, Potassium 4.1, Chloride 106, Carbon Dioxide 29.0, Anion Gap 4 L, BUN 26 H, Creatinine 1.06 H, Estim Creat Clear Calc 46.65, Est GFR (MDRD) Af Amer 66, Est GFR (MDRD) Non-Af 54 L, BUN/Creatinine Ratio 24.5 H, Glucose 86, Calcium 9.1, Total Bilirubin 0.30, AST 23, ALT 24, Alkaline Phosphatase 73, Total Protein 6.1 L, Albumin 2.7 L, Globulin 3.4, Albumin/Globulin Ratio 0.8 L Microbiology: Microbiology 08/29/21 18:13 Urine, Clean Catch Streptococcus pneumoniae Antigen (M - Final 08/29/21 18:13 Urine, Clean Catch Legionella Antigen - Final 08/29/21 18:16 Nasal Secretion SARS-CoV-2 Antigen (Rapid) - Final SARS-CoV-2 (COVID 19) Radiography Diagnostic Testing: Radiology Impression Venous Doppler Study 08/29/21 19:05 Interpretation Summary There is no evidence of right lower extremity deep vein thrombosis. Right great saphenous vein appears patent and compressible segmentally. Covid 19 protocol utilized Ordering Physician: Clara Richey Referring Physician: Isatu Benson Performed By: Joelle Brown RDCS, RVT D/C Instructions Discharge Diet: No restrictions Weight Bearing Status: Weight bearing as tolerated Additional Activity Instructions: Self quarantine until 09/14/21 Call your doctor if you observe: Fever of 101 or Higher, Coldness, Increased Pain, Numbness or Tingling, Change in Color, Inability to urinate, Inability to have a bowel movement, Shortness of breath, Dizziness, Fainting spells, Swelling in the ankles, Chest pain, Prolonged hiccupping, Increased palpitations (irregular heartbeat), Calf discomfort and Uncontrolled pain Meaningful Use Info Meaningful Use Diagnoses (Choose all that apply): None applicable Discharge Plan Admission Admit Date/Time: 08/29/21 18:14 Primary Reason for Your Visit: Bilateral COVID-19 pneumonia Attending Provider: Mick Miranda Primary Care Provider: Isatu Benson BACTERIOLOGY RESEARCH ASSISTANT Instructions Additional Instructions / Restrictions: Advised to continue incentive spirometry and PEP at home Discharge Orders/Prescriptions Prescriptions: New pseudoephedrine-guaifenesin [Mucus D] 60-600 mg tablet extended release 12 hr 2 tab PO BID PRN (Reason: cold symptoms) Qty: 14 RF: 0 Eliquis 2.5 mg tablet 2.5 mg PO BID Qty: 30 RF: 0 dexamethasone 6 mg tablet 6 mg PO DAILY Qty: 7 RF: 0 Continued metoprolol succinate 25 mg tablet extended release 24 hr 12.5 mg PO QDAY RF: 0 tiotropium bromide [Spiriva with HandiHaler] 18 mcg capsule, w/inhalation dev ice 1 cap INHALATION QDAY RF: 0 levothyroxine 88 mcg tablet 88 mcg PO DAILY RF: 0 vitamin B complex [B Complex 1] Tablet 1 tab PO DAILY RF: 0 cholecalciferol (vitamin D3) 25 mcg (1,000 unit) tablet 25 mcg PO DAILY RF: 0 zinc 50 mg tablet 50 mg PO DAILY RF: 0 ascorbic acid (vitamin C) 500 mg tablet 500 mg PO DAILY RF: 0 alprazolam 0.5 MG tablet 0.25 mg PO BID PRN PRN (Reason: Anxiety) RF: 0 escitalopram oxalate 20 MG tablet 20 mg PO QHS RF: 0 ezetimibe 10 MG tablet 10 mg PO DAILY RF: 0 aspirin 81 MG tablet,chewable 81 mg PO DAILY@0800 RF: 0 omeprazole 20 MG capsule 40 mg PO DAILY RF: 0 acetaminophen 325 MG tablet 650 mg PO Q4H PRN PRN (Reason: FEVER) RF: 0 benzonatate 100 MG capsule 100 mg PO 4X/DAY PRN PRN (Reason: Cough) Qty: 30 RF: 0 albuterol sulfate 1 INHALER inhaler 1 - 2 puff inhalation Q4H PRN PRN (Reason: Sob &/Or Wheezing) Qty: 1 RF: 0 Held metaxalone 800 MG tablet 800 mg PO BID RF: 0 Hold Instructions: Resume on 09/08/21. Hold for 1 week while she is taking Mucinex D because of interaction Discontinued doxycycline hyclate 100 mg capsule 100 mg PO BID RF: 0 nitrofurantoin monohyd/m-cryst 100 mg capsule 100 mg PO DAILY RF: 0 Referrals / Follow Up: Isatu Benson NP, BACTERIOLOGY RESEARCH ASSISTANT-C [Primary Care Provider] - Within 2 Weeks (For Booster COVID- 19 vaccine once out of isolation) Disposition Disposition (needs filled in before D/C Order can be placed): Home, Self Care Charges/Coding Visit Charges Inpatient E&M: 76279 Disch Hosp
== END 2021-09-01 13:15 | disposition home or self-care (01) | DRG 177 ==
LOC: ED 18:24 → MS3 18:31
PROVIDERS: Admitting Provider Family Medicine; Emergency Provider Emergency Medicine; PCP Nurse Practitioner; Visit Provider Internal Medicine
DX: U07.1 COVID-19 (principal); J12.82 Pneumonia due to coronavirus disease 2019; E43 Unspecified severe protein-calorie malnutrition; J44.0 Chronic obstructive pulmonary disease with (acute) lower respiratory infection; I73.9 Peripheral vascular disease, unspecified; E78.00 Pure hypercholesterolemia, unspecified; I10 Essential (primary) hypertension; F41.9 Anxiety disorder, unspecified; F17.210 Nicotine dependence, cigarettes, uncomplicated; E78.5 Hyperlipidemia, unspecified; I65.21 Occlusion and stenosis of right carotid artery; I44.7 Left bundle-branch block, unspecified; R09.02 Hypoxemia; Z79.82 Long term (current) use of aspirin; Z79.899 Other long term (current) drug therapy; Z68.24 Body mass index [BMI] 24.0-24.9, adult
CPT/HCPCS: 36415; 71045; 71275; 80048; 80053; 80076; 81001; 82728; 83615; 83880; 84145; 84484; 85025; 85379; 86140; 87426; 87449; 93005; 93971; 94640; 94762; 97162; 97165; 97802; 99251; 99285; 99406; J7030; J7050; Q9967; A4216; G0463; J0248; J2405

== ENCOUNTER 2021-09-17 16:28 | Emergency (ER) | payer OTHER, MEDICARE, SELFPAY ==
[2021-09-17] VITALS (10 sets, daily range): BP systolic 122–132; BP diastolic 52–106; PULSE 75–88; RESP 18–24; TEMP 36.4; O2SAT 96–100; BMI 25.0
--- NOTE | 2021-09-17 16:53 | CT_ITS ---
STUDY: CTA CHEST REASON FOR EXAM: Female, 71 years old. Chest pain RADIATION DOSAGE (If Supplied By Facility): CTDIvol = ( 11.79 ) mGy, DLP = ( 424.23 ) mGycm TECHNIQUE: The examination was performed with the intravenous administration of IV 100mL Isovue-370. Post-processing of the angiographic images was performed, with multiplanar reformation and 3D reconstruction. Individualized dose optimization techniques were used for this CT. COMPARISON: None. FINDINGS: Normal enhancement of the main pulmonary artery and right and left pulmonary arteries. Normal enhancement of the bilateral peripheral pulmonary arteries. There is no demonstrated pulmonary embolism. Calcified thoracic aorta and visualized great vessels. There is intraluminal thrombus in the aorta. There is no demonstrated aortic dissection. Normal heart and pericardium. Normal mediastinum. Normal hilar regions. Normal visualized trachea and bronchi. The lungs are hyperaerated with emphysematous changes. Mild peripheral interstitial prominence/fibrotic changes. 1 cm right lower lobe irregular posterior peripheral nodule, image 119 series 2. Calcified right pulmonary granuloma. Normal pleura. Normal chest wall structures. Normal osseous structures. Granulomatous calcifications in the spleen. CT/CTA Chest W/WO Contrast IMPRESSION: No demonstrated pulmonary embolism or arterial dissection. Hyperaeration with emphysematous changes of the lungs. Electronically Signed: Timoteo Tatum DO at 18:38 EST Tel [phone], Service support ,
--- NOTE | 2021-09-17 16:54 | EKG12_ITS ---
Test Reason : SOB Blood Pressure : / mmHG Vent. Rate : 075 BPM Atrial Rate : 075 BPM P-R Int : 122 ms QRS Dur : 134 ms QT Int : 458 ms P-R-T Axes : 064 003 154 degrees QTc Int : 511 ms Normal sinus rhythm Left bundle branch block Abnormal ECG Confirmed by JARRETT PARMAR, [place] ([id number]), associate entertainment editor HIRA SAXENA ([id number]) on 09/18/2021 10:09:45 AM Referred By: DELFINA Confirmed By:MONTANA FARIAS MD
--- NOTE | 2021-09-17 16:56 | ED.VIS.DYS ---
HPI History of Present Illness Chief Complaint: Shortness of Breath Informant: patient Onset/Context/Timing Onset: Yesterday Context: gradual Timing: Continuous Quality: Positive for Dyspnea on exertion Worsened by: Exertion Relieved by: Nothing Associated Symptoms cough, ear pain, sore throat, subjective and chills; Negative for rhinorrhea or fever Narrative Narrative: Patient presents with shortness of breath that began yesterday. Patient states she feels like she cannot catch her breath. Patient states that this has been getting worse. Patient states it is worse with any exertion. Patient admits to some subjective chills. Patient admits to some pain in her right lower chest and lower thoracic area. Patient admits to some nausea but denies any vomiting. Patient states she had COVID-19 approximately 3 weeks ago. Patient states she feels like this is starting to come back. Patient states she feels weak. PE Risk Factors: Negative for Cancer, Prior DVT or PE, Recent surgery and Recent travel PFSH PFSH Medical History AAA (abdominal aortic aneurysm) Anxiety Chest pain Chronic obstructive lung disease COVID-19 Ectopic beats Essential hypertension Hypothyroidism Irregular heart beat Kidney stones Left bundle branch block PAD (peripheral artery disease) Pancreatitis Pure hypercholesterolemia Sleep apnea Smoker Stenosis of right carotid artery Tobacco user Home Medications alprazolam 0.25 mg PO BID PRN PRN 10/08/13 [History Last Taken Unknown] escitalopram oxalate 20 mg PO QHS 10/08/13 [History Last Taken 10/16/18] ezetimibe 10 mg PO DAILY 10/08/13 [History Last Taken 08/28/21 11:26] aspirin 81 mg PO DAILY@0800 05/16/15 [History Last Taken 10/17/18] omeprazole 40 mg PO DAILY 12/04/15 [History Last Taken 08/29/21 12:51] metoprolol succinate 25 mg tablet,extended release 24 hr 12.5 mg PO QDAY tab 08/17/17 [History Last Taken 08/28/21 11:26] tiotropium bromide 18 mcg capsule with inhalation device 1 cap INHALATION QDAY 08/17/17 [History Last Taken 10/17/18] levothyroxine 88 mcg tablet 88 mcg PO DAILY 06/11/18 [History Last Taken 08/29/21 10:30] metaxalone 800 mg PO BID 10/17/18 [History Last Taken 10/17/18] acetaminophen 650 mg PO Q4H PRN PRN tab 10/19/18 [Rx Last Taken Unknown] albuterol sulfate 1 - 2 puff INHALATION Q4H PRN PRN #1 inhaler 10/19/18 [Rx Last Taken Unknown] benzonatate 100 mg PO 4X/DAY PRN PRN #30 cap 10/19/18 [Rx Last Taken Unknown] vitamin B complex 1 tab PO DAILY 06/22/19 [History Last Taken Unknown] ascorbic acid (vitamin C) 500 mg tablet 500 mg PO DAILY 09/24/20 [History Last Taken Unknown] cholecalciferol (vitamin D3) 25 mcg (1,000 unit) tablet 25 mcg PO DAILY 09/24/20 [History Last Taken Unknown] zinc 50 mg tablet 50 mg PO DAILY 09/24/20 [History Last Taken 08/29/21 12:51] apixaban [Eliquis] 2.5 mg PO BID #30 tab 09/01/21 [Rx Last Taken Unknown] dexamethasone 6 mg PO DAILY #7 tab 09/01/21 [Rx Last Taken Unknown] pseudoephedrine-guaifenesin [Mucus D] 2 tab PO BID PRN #14 tab 09/01/21 [Rx Last Taken Unknown] prednisone 60 mg PO DAILY #12 tablet 09/17/21 [Rx Last Taken Unknown] Allergy/AdvReac Type Severity Reaction Status Date / Time azithromycin [From Zithromax] Allergy Hives Verified 09/17/21 16:31 cortisone [Cortisone] Allergy Swelling Verified 09/17/21 16:31 erythromycin base Allergy Other Verified 09/17/21 16:31 [Erythromycin Base] Family History (Updated 08/29/21 @ 19:[address] Clara Richey MD) Mother Cancer Hx stomach cancer. Father Cancer Hx prostate CA. Surgical History History of appendectomy History of back surgery (~04/22/19) History of carotid endarterectomy (~2012) History of cholecystectomy History of sinus surgery Social History household members: family Smoking Status: Current every day smoker tobacco type: cigarettes alcohol intake: never substance use type: does not use ROS ROS ED Constitutional Constitutional ED: Reports chills; Denies fever(s) Eyes Eyes: Denies blurry vision or change in vision ENT ENT ED: Reports ear pain left and sore throat; Denies rhinorrhea Cardiovascular Cardiovascular: Reports chest pain; Denies palpitations Respiratory/Chest Respiratory/Chest: Reports cough and dyspnea Gastrointestinal Gastrointestinal: Reports nausea; Denies vomiting Genitourinary Genitourinary ED: Denies dysuria or hematuria Musculoskeletal Musculoskeletal: Reports back pain; Denies neck pain Integumentary Denies abscess or rash Neurologic Neurologic: Reports weakness; Denies headache(s) Allergic/Immunologic Allergic/Immunologic ED: Denies mouth swelling or urticaria EXAM Physical Exam Const Vital Signs: 09/17/21 16:30 09/17/21 16:31 09/17/21 16:40 Temperature 97.6 F L 97.6 F L Temperature Source Temporal Temporal Pulse Rate 85 75 75 Respiratory Rate 24 H 20 H 20 H Respiratory Effort Blood Pressure 129/65 H 132/52 H 132/52 H Blood Pressure Mean 86 78 78 Pulse Ox 100 100 100 Oxygen Delivery Method Room Air Nasal Cannula Nasal Cannula Oxygen Flow Rate (L/min) 2 2 09/17/21 16:43 09/17/21 16:58 09/17/21 17:18 Temperature Temperature Source Pulse Rate 78 Respiratory Rate 20 H Respiratory Effort Short of Breath Blood Pressure Blood Pressure Mean Pulse Ox Oxygen Delivery Method Nasal Cannula Nasal Cannula Oxygen Flow Rate (L/min) 2 2 09/17/21 17:20 09/17/21 18:28 09/17/21 18:31 Temperature 977 F H Temperature Source Temporal Pulse Rate 78 78 Respiratory Rate 18 18 Respiratory Effort Blood Pressure 122/106 H 122/106 H Blood Pressure Mean 111 111 Pulse Ox 100 98 98 Oxygen Delivery Method Nasal Cannula Nasal Cannula Nasal Cannula Oxygen Flow Rate (L/min) 2 2 09/17/21 20:14 Temperature 97.6 F L Temperature Source Oral Pulse Rate 80 Respiratory Rate 18 Respiratory Effort Blood Pressure 125/61 H Blood Pressure Mean 82 Pulse Ox 98 Oxygen Delivery Method Room Air Oxygen Flow Rate (L/min) Positive well nourished and well developed General Appearance ED: well developed HEENT Reports moist mucous membranes Neck supple and no JVD Resp normal respiratory effort Auscultation: diminished lung sounds diffuse Cardio regular rate, regular rhythm and no murmurs GI normal to inspection, nondistended, normoactive bowel sounds and non-tender Palpation: soft Extremity normal to inspection General Extremety ED: Negative for edema or tenderness General Extremity: Negative for edema Neuro oriented x3, CN's II-XII intact bilaterally and no sensory deficits noted Sensorium / Orientation: alert Motor Exam: strength 5/5 throughout Psych mental status grossly normal Skin no rashes or lesions noted MDM MDM MDM Narrative Medical decision making narrative: EKG was obtained. On my interpretation, it shows a normal sinus rhythm with a rate of 75. There is a left bundle branch block pattern noted. IL interval was normal. QRS interval was slightly prolonged at 134 ms. QTC was slightly prolonged at 511 ms. Mora was normal. This was unchanged compared to previous EKG. CBC was within normal limits. Comprehensive metabolic profile showed a slightly elevated creatinine of 1.36. BUN was 20. Initial high-sensitivity troponin was normal at 8. 2-hour repeat high-sensitivity troponin was normal at 10. Urinalysis does not show any evidence of urinary tract infection. COVID-19 rapid antigen was obtained and was negative. CTA of the chest was obtained. There is no evidence of pulmonary embolism. There is no evidence of aortic dissection. There is no pneumonia noted. Patient was given a DuoNeb aerosol here. Patient is feeling better on reevaluation. Patient was advised of her findings. Patient was given a dose of prednisone here. Patient was given a prescription for prednisone. Patient was instructed to follow-up with her primary care physician in 5 to 7 days. Patient understood and was agreeable with the plan. All questions were answered. Lab Data Attestation: I reviewed the patient's lab results. Labs: Laboratory Results - last 24 hr 09/17/21 09/17/21 09/17/21 16:54 16:54 20:00 WBC 5.3 RBC 4.56 Hgb 14.0 Hct 42.3 MCV 92.8 MCH 30.7 MCHC 33.1 RDW Std Deviation 43.4 RDW Coeff of [place] 12.6 Plt Count 273 MPV 10.0 Immature Gran % (Auto) 0.600 Neut % (Auto) 65.6 Lymph % (Auto) 20.6 [place] % (Auto) 9.2 Eos % (Auto) 3.6 Baso % (Auto) 0.4 Absolute Neuts (auto) 3.5 Absolute Lymphs (auto) 1.10 Nucleated RBC % 0 Sodium 140 Potassium 4.1 Chloride 105 Carbon Dioxide 26.0 Anion Gap 9 BUN 20 H Creatinine 1.36 H Estim Creat Clear Calc 36.36 Est GFR (MDRD) Af Amer 49 L Est GFR (MDRD) Non-Af 41 L BUN/Creatinine Ratio 14.7 Glucose 107 H Calcium 9.3 Total Bilirubin 0.40 AST 24 ALT 19 Alkaline Phosphatase 82 Troponin I High Sens 8 10 Total Protein 7.7 Albumin 3.3 Globulin 4.4 H Albumin/Globulin Ratio 0.8 L Urine Color Urine Clarity Urine pH Ur Specific [place] Urine Protein Urine Glucose (UA) Urine Ketones Urine Occult Blood Urine Nitrite Urine Bilirubin Urine Urobilinogen Ur Leukocyte Esterase Urine RBC Urine WBC Ur Squamous Epith Cells Urine Bacteria Urine Mucus 09/17/21 20:10 WBC RBC Hgb Hct MCV MCH MCHC RDW Std Deviation RDW Coeff of [place] Plt Count MPV Immature Gran % (Auto) Neut % (Auto) Lymph % (Auto) [place] % (Auto) Eos % (Auto) Baso % (Auto) Absolute Neuts (auto) Absolute Lymphs (auto) Nucleated RBC % Sodium Potassium Chloride Carbon Dioxide Anion Gap BUN Creatinine Estim Creat Clear Calc Est GFR (MDRD) Af Amer Est GFR (MDRD) Non-Af BUN/Creatinine Ratio Glucose Calcium Total Bilirubin AST ALT Alkaline Phosphatase Troponin I High Sens Total Protein Albumin Globulin Albumin/Globulin Ratio Urine Color Yellow Urine Clarity Clear Urine pH 7.0 Ur Specific [place] 1.005 Urine Protein 15 H Urine Glucose (UA) Normal Urine Ketones 5 H Urine Occult Blood 10 H Urine Nitrite Negative Urine Bilirubin Negative Urine Urobilinogen Normal Ur Leukocyte Esterase 500 H Urine RBC 0-5 SEEN Urine WBC 0-5 SEEN Ur Squamous Epith Cells 0-5 SEEN Urine Bacteria 0 SEEN Urine Mucus 0 SEEN Radiography Diagnostic Testing: Clinical Impression(s) from Imaging Studies Chest CTA 09/17/21 16:53 IMPRESSION: No demonstrated pulmonary embolism or arterial dissection. Hyperaeration with emphysematous changes of the lungs. Electronically Signed: Timoteo Tatum DO at 18:38 EST Tel [phone], Service support , EKG Initial EKG: Attestation: I personally reviewed and interpreted this EKG as follows: Interpretation: Sinus Rhythm (75) and LBBB Prior EKG tracings: available for review Prior: Unchanged (08/29/2021) Discharge Plan Triage Chief Complaint: Shortness of Breath ED Provider: Mina Spangler Dx/Rx/DC Orders Clinical Impression: Chronic obstructive lung disease Instructions: ED COPD Flare Prescriptions: New prednisone 20 MG tablet 60 mg PO DAILY Qty: 12 RF: 0 No Action metoprolol succinate 25 mg tablet extended release 24 hr 12.5 mg PO QDAY RF: 0 tiotropium bromide [Spiriva with HandiHaler] 18 mcg capsule, w/inhalation device 1 cap INHALATION QDAY RF: 0 levothyroxine 88 mcg tablet 88 mcg PO DAILY RF: 0 vitamin B complex [B Complex 1] Tablet 1 tab PO DAILY RF: 0 cholecalciferol (vitamin D3) 25 mcg (1,000 unit) tablet 25 mcg PO DAILY RF: 0 zinc 50 mg tablet 50 mg PO DAILY RF: 0 ascorbic acid (vitamin C) 500 mg tablet 500 mg PO DAILY RF: 0 alprazolam 0.5 MG tablet 0.25 mg PO BID PRN PRN (Reason: Anxiety) RF: 0 escitalopram oxalate 20 MG tablet 20 mg PO QHS RF: 0 ezetimibe 10 MG tablet 10 mg PO DAILY RF: 0 aspirin 81 MG tablet,chewable 81 mg PO DAILY@0800 RF: 0 omeprazole 20 MG capsule 40 mg PO DAILY RF: 0 metaxalone 800 MG tablet 800 mg PO BID RF: 0 Hold Instructions: Resume on 09/08/21. Hold for 1 week while she is taking Mucinex D because of interaction acetaminophen 325 MG tablet 650 mg PO Q4H PRN PRN (Reason: FEVER) RF: 0 benzonatate 100 MG capsule 100 mg PO 4X/DAY PRN PRN (Reason: Cough) Qty: 30 RF: 0 albuterol sulfate 1 INHALER inhaler 1 - 2 puff inhalation Q4H PRN PRN (Reason: Sob &/Or Wheezing) Qty: 1 RF: 0 pseudoephedrine-guaifenesin [Mucus D] 60-600 mg tablet extended release 12 hr 2 tab PO BID PRN (Reason: cold symptoms) Qty: 14 RF: 0 Eliquis 2.5 mg tablet 2.5 mg PO BID Qty: 30 RF: 0 dexamethasone 6 mg tablet 6 mg PO DAILY Qty: 7 RF: 0 Primary Care Provider: Isatu Benson NP Referrals: Ciesa,Isatu POWDER COATER, [facility] [employer]-C [Primary Care Provider] - 5-7 Days Disposition Disposition: Home, Self Care
[2021-09-17] MEDS: Ipratropium/Albuterol Sulfate 3 ML AMPUL.NEB INHALATION (17:16)
[2021-09-17 17:23] LABS: Absolute Neutrophil Count 3.5 X10^3/uL (2.0-7.7); Basophil# 0.02 X10^3/uL; Basophil% 0.4 % (0-1); Eosinophil# 0.19 X10^3/uL; Eosinophils% 3.6 % (0-5); Hematocrit 42.3 % (37-47); Lymphocyte % 20.6 % (19-41); Mean Corp Hgb Conc 33.1 g/dL (32-36); Mean Corpuscular Hgb 30.7 pg (27.0-32.0); Mean Corpuscular Volume 92.8 fL (81-99); Monocyte# 0.49 X10^3/uL; Monocyte% 9.2 % (0-10); NRBC Flagged by Analyzer 0 % (0-5); Neutrophil # 3.51 X10^3/uL (2.7-7.7); Neutrophil % 65.6 % (47-70); Platelet Count 273 K/mm3 (150-450); RBC Distribution Width CV 12.6 % (11.6-14.6); RBC Distribution Width SD 43.4 fl (35.1-43.9); Red Blood Count 4.56 M/mm3 (4.2-5.4); White Blood Count 5.3 K/mm3 (4.4-11.0)
[2021-09-17 17:39] LABS: ALB/GLOB Ratio 0.8 RATIO (0.9-2.4); AST(SGOT) 24 U/L (15-37); Alanine Aminotransfer ALT/SGPT 19 U/L (13-56); Albumin, Serum 3.3 g/dL (3.2-5.0); Alkaline Phosphatase 82 U/L (45-117); Anion Gap 9 (5-15); BUN 20 mg/dL (7-18); BUN/Creat Ratio 14.7 RATIO (10-20); Calcium,Total 9.3 mg/dL (8.5-10.1); Chloride 105 mmol/L (98-107); Creatinine, Serum 1.36 mg/dL (0.55-1.02); EST Glomerular Filtration Rate 41 mL/min (>60); Est Glom Filt Rate - Afr Amer 49 mL/min (>60); Estimated Creatinine Clearance 36.36 ml/min; Globulin 4.4 g/dL (2.2-4.2); Glucose 107 mg/dL (74-106); Potassium 4.1 mmol/L (3.5-5.1); Protein, Total 7.7 g/dL (6.4-8.2); Sodium Level 140 mmol/L (136-145); Troponin-I HS 8 pg/mL (3.0-54.0)
[2021-09-17] MEDS: 0.9% Normal Saline 1,000 ML 1000 ML IV (18:38)
[2021-09-17 20:16] LABS: Bacteria 0 SEEN /hpf (None Seen); Mucous, Urine 0 SEEN /hpf (<or=2+)
[2021-09-17 20:25] LABS: Color, Urine Yellow (Yellow); Glucose, Dipstick Normal (Normal); Ketone-Dipstick 5 mg/dl (Negative); Leukocyte Esterase-Dipstick 500 /ul (Negative); Nitrite-Dipstick Negative (Negative); Occult Blood-Urine 10 /ul (Negative); Protein-Dipstick 15 mg/dl (Negative); Specific Gravity, Urine 1.005 (1.002-1.030); Urine Bilirubin Dipstick Negative (Negative); Urine Clarity Clear (Clear); Urine Urobilinogen Normal (Normal)
[2021-09-17 20:32] LABS: Red Blood Cells-Urine 0-5 SEEN /hpf (0-5); Squamous Epithelial Cells - UA 0-5 SEEN /hpf (5-10); White Blood Cells 0-5 SEEN /hpf (0-5)
[2021-09-17 20:36] LABS: Troponin-I HS 10 pg/mL (3.0-54.0)
[2021-09-17] MEDS: predniSONE 20 MG Tablet 60 MG PO (20:56)
== END 2021-09-17 21:35 | disposition home or self-care (01) ==
PROVIDERS: Emergency Provider Emergency Medicine; PCP Nurse Practitioner; Visit Provider Emergency Medicine
DX: J44.9 Chronic obstructive pulmonary disease, unspecified (principal); I71.4 Abdominal aortic aneurysm, without rupture; I73.9 Peripheral vascular disease, unspecified; I44.7 Left bundle-branch block, unspecified; F41.9 Anxiety disorder, unspecified; Z86.16 Personal history of COVID-19; E03.9 Hypothyroidism, unspecified; Z87.442 Personal history of urinary calculi; Z87.19 Personal history of other diseases of the digestive system; E78.00 Pure hypercholesterolemia, unspecified; G47.30 Sleep apnea, unspecified; I65.21 Occlusion and stenosis of right carotid artery; Z79.899 Other long term (current) drug therapy; Z79.82 Long term (current) use of aspirin; Z79.01 Long term (current) use of anticoagulants; F17.210 Nicotine dependence, cigarettes, uncomplicated
CPT/HCPCS: 71275; 80053; 81001; 84484; 85025; 87426; 93005; 94640; 99285; J7030; Q9967; A4216

== ENCOUNTER 2021-10-26 12:03 | Emergency (ER) | payer MEDICARE, SELFPAY ==
[2021-10-26 12:04] VITALS: BP 148/57; PULSE 84; RESP 16; TEMP 36; O2SAT 98; BMI 25.0
--- NOTE | 2021-10-26 12:31 | VDLE_ITS ---
Reason For Study: pain Procedure LEFT This is a venous duplex using B-mode, color GSV is normal. flow and spectral Doppler. CFV is compressible, spontaneous, phasic, Exam performed portable in ED. competent, and demonstrates normal The exam was abbreviated due to the COVID 19 augmentation. protocol. FV is compressible, spontaneous, phasic, The exam was diagnostic. competent and demonstrates normal A preliminary report was called and/or faxed augmentation. to Dr. Grijalva. POP V is compressible, spontaneous, phasic, competent and demonstrates normal augmentation. T/P Trunk is compressible. PTV is compressible. LT PerV is compressible. Hypoechoic area behind the knee measuring .83 x 3.54 cm. Area is nonvascular. VL/Venous Duplex US, Unilateral Interpretation Summary There is no evidence of left lower extremity deep vein thrombosis. Left great s aphenous vein appears patent and compressible segmentally. Nonvascular hypoechoic left popliteal stru cture measuring 0.83 x 3.54 cm consistent with a Neff's cyst. Clinical correlation would be appropr iate. Abbreviated COVID-19 protocol utilized Ordering Physician: Al Grijalva Performed By: Elmer Gonsalez RVT
--- NOTE | 2021-10-26 12:32 | EDS_ITS ---
HPI History of Present Illness Chief Complaint: Lower Extremity Injury Narrative Narrative: Patient states I think I have a blood clot behind my left knee. She states that she has had pain behind her left knee for the last 3 to 4 days. She denies any chest pain or shortness of breath. She noticed swelling the other day on the lateral aspect of her posterior knee on the left. She is concerned because states her had blood clots and from pulmonary embolism. She went to [place] where she states that last night she had blood work that was indicative of her possibly having blood clots. She is supposed to have an outpatient ultrasound on Thursday, 2 days from now, but decided it would be best not to wait. She presents for evaluation and ultrasound of her left lower extremity. PFSH PFSH Medical History AAA (abdominal aortic aneurysm) Anxiety Chest pain Chronic obstructive lung disease COVID-19 Ectopic beats Essential hypertension Hypothyroidism Irregular heart beat Kidney stones Left bundle branch block PAD (peripheral artery disease) Pancreatitis Pure hypercholesterolemia Sleep apnea Smoker Stenosis of right carotid artery Tobacco user Home Medications alprazolam 0.25 mg PO BID PRN PRN 10/08/13 [History Last Taken Unknown] escitalopram oxalate 20 mg PO QHS 10/08/13 [History Last Taken 10/16/18] ezetimibe 10 mg PO DAILY 10/08/13 [History Last Taken 08/28/21 11:26] aspirin 81 mg PO DAILY@0800 05/16/15 [History Last Taken 10/17/18] omeprazole 40 mg PO DAILY 12/04/15 [History Last Taken 08/29/21 12:51] metoprolol succinate 25 mg tablet,extended release 24 hr 12.5 mg PO QDAY tab 08/17/17 [History Last Taken 08/28/21 11:26] tiotropium bromide 18 mcg capsule with inhalation device 1 cap INHALATION QDAY 08/17/17 [History Last Taken 10/17/18] levothyroxine 88 mcg tablet 88 mcg PO DAILY 06/11/18 [History Last Taken 08/29/21 10:30] metaxalone 800 mg PO BID 10/17/18 [History Last Taken 10/17/18] acetaminophen 650 mg PO Q4H PRN PRN tab 10/19/18 [Rx Last Taken Unknown] albuterol sulfate 1 - 2 puff INHALATION Q4H PRN PRN #1 inhaler 10/19/18 [Rx Last Taken Unknown] cholecalciferol (vitamin D3) 25 mcg (1,000 unit) tablet 25 mcg PO DAILY 09/24/20 [History Last Taken Unknown] zinc 50 mg tablet 50 mg PO DAILY 09/24/20 [History Last Taken 08/29/21 12:51] Allergy/AdvReac Type Severity Reaction Status Date / Time azithromycin [From Zithromax] Allergy Hives Verified 10/26/21 12:06 cortisone [Cortisone] Allergy Swelling Verified 10/26/21 12:06 erythromycin base Allergy Other Verified 10/26/21 12:06 [Erythromycin Base] Family History Mother Cancer Hx stomach cancer. Father Cancer Hx prostate CA. Surgical History History of appendectomy History of back surgery (~04/22/19) History of carotid endarterectomy (~2012) History of cholecystectomy History of sinus surgery Social History household members: family Smoking Status: Current every day smoker tobacco type: cigarettes alcohol intake: never substance use type: does not use ROS ROS ED ROS Narrative Constitutional: No fever, no chills. HEENT: No sore throat. No neck pain. No loss of vision. No rhinorrhea. Cardiovascular: No chest pain. No palpitations. No pedal edema. Respiratory: No cough, no shortness of breath. Abdominal: No abdominal pain. No nausea. No vomiting. Genitourinary: No dysuria. No hematuria. Musculoskeletal: No myalgias. Pain and tenderness posterior knee, left, lateral. Neurologic: No headaches. No dizziness. No lightheadedness. Skin: No rash. No change in color. Psychiatric: No depression. No anxiety. EXAM Physical Exam Narrative Exam Narrative: Afebrile. Vital signs noted. HEENT: Normocephalic. Atraumatic. PERRL, EOMI. Neck soft and supple. No point tenderness or step off. Cardiovascular: Regular rate and rhythm. No murmurs, rubs, or gallops appreciated. Respiratory: No tachypnea. Lungs clear to auscultation bilaterally. Gastrointestinal: Abdomen soft, nontender, with normoactive bowel sounds. No rebound or guarding. Neurological: Awake. Alert. Nonfocal, nonlateralizing. Skin: No rash. Normal color. No pallor. Musculoskeletal: No pedal edema. Full range of motion extremities. Positive flow seen in the extension of left knee. Mild tenderness in popliteal fossa. No erythema. Neurovascular intact distally. Palpable dorsalis pedis pulse. Const Vital Signs: 10/26/21 12:04 Temperature 96.8 F L Temperature Source Temporal Pulse Rate 84 Respiratory Rate 16 Blood Pressure 148/57 H Blood Pressure Mean 87 Pulse Ox 98 Oxygen Delivery Method Room Air MDM MDM MDM Narrative Medical decision making narrative: Ultrasound was obtained of the left lower extremity. There is no evidence of DVT. There is a hypoechoic area behind the knee measuring 0.83 x 3.54 cm that is nonvascular. Feel this is most likely a Neff's cyst. At this point in time, I feel she can be discharged safely home to follow-up with her primary care provider. Return instructions were reviewed. Disposition is discharged home in stable condition. Discharge Plan Triage Chief Complaint: Lower Extremity Injury ED Provider: Al Grijalva Dx/Rx/DC Orders Clinical Impression: Neff's cyst of knee, Left leg pain Instructions: ED Neff's Cyst, ED Pain, Acute, Uncertain Cause Prescriptions: No Action metoprolol succinate 25 mg tablet extended release 24 hr 12.5 mg PO QDAY RF: 0 tiotropium bromide [Spiriva with HandiHaler] 18 mcg capsule, w/inhalation device 1 cap INHALATION QDAY RF: 0 levothyroxine 88 mcg tablet 88 mcg PO DAILY RF: 0 cholecalciferol (vitamin D3) 25 mcg (1,000 unit) tablet 25 mcg PO DAILY RF: 0 zinc 50 mg tablet 50 mg PO DAILY RF: 0 alprazolam 0.5 MG tablet 0.25 mg PO BID PRN PRN (Reason: Anxiety) RF: 0 escitalopram oxalate 20 MG tablet 20 mg PO QHS RF: 0 ezetimibe 10 MG tablet 10 mg PO DAILY RF: 0 aspirin 81 MG tablet,chewable 81 mg PO DAILY@0800 RF: 0 omeprazole 20 MG capsule 40 mg PO DAILY RF: 0 metaxalone 800 MG tablet 800 mg PO BID RF: 0 Hold Instructions: Resume on 09/08/21. Hold for 1 week while she is taking Mucinex D because of interaction acetaminophen 325 MG tablet 650 mg PO Q4H PRN PRN (Reason: FEVER) RF: 0 albuterol sulfate 1 INHALER inhaler 1 - 2 puff inhalation Q4H PRN PRN (Reason: Sob &/Or Wheezing) Qty: 1 RF: 0 Primary Care Provider: Isatu Benson NP Referrals: Isatu Benson NP, [employer] [Primary Care Provider] - 3-5 Days Disposition Disposition: Home, Self Care
== END 2021-10-26 13:55 | disposition home or self-care (01) ==
PROVIDERS: Emergency Provider Emergency Medicine; PCP Nurse Practitioner; Visit Provider Emergency Medicine
DX: M71.22 Synovial cyst of popliteal space [Baker], left knee (principal); J44.9 Chronic obstructive pulmonary disease, unspecified; M79.605 Pain in left leg; M25.562 Pain in left knee; I10 Essential (primary) hypertension; F17.210 Nicotine dependence, cigarettes, uncomplicated; E03.9 Hypothyroidism, unspecified; G47.30 Sleep apnea, unspecified; Z86.16 Personal history of COVID-19; Z79.82 Long term (current) use of aspirin; Z79.899 Other long term (current) drug therapy
CPT/HCPCS: 93971; 99282

== ENCOUNTER 2021-10-30 10:31 | Outpatient (CLI) | payer MEDICARE, SELFPAY ==
--- NOTE | 2021-10-30 10:33 | US_ITS ---
STUDY: ABDOMINAL ULTRASOUND - RIGHT UPPER QUADRANT REASON FOR VISIT: Female, 71 years old ABD PAIN TECHNIQUE: Ultrasound evaluation of the right upper quadrant was performed with real-time and static felder-scale imaging. TECHNICAL QUALITY: Adequate. COMPARISON: None. FINDINGS: Liver: The liver measures 16.2 cm. There is increased echogenicity consistent with fatty infiltration. The bile ducts are within normal limits. There is hepatic color flow. The direction of portal flow is hepatopetal. There is no demonstrated mass lesion. Gallbladder: The patient is status post cholecystectomy. Common Bile Duct (C.B.D.): The common bile duct measures 5.2 mm. Pancreas: Normal size of the head, body and tail of the pancreas. There is increased echogenicity of the pancreas. There is no demonstrated pancreatic mass or cyst. Right Kidney: Normal size of the right kidney. The right kidney measures 9.4 cm x 5.2 cm x 3.9 cm. Normal renal cortex. The right cortex measures 1 cm. There is a 6 mm x 8 mm x 8 mm cyst in the inferior pole of the kidney. There is no right hydronephrosis. US/Abdomen Limited IMPRESSION: Fatty infiltration of the liver. Small right renal cyst. Electronically Signed: Ethan Samuel MD at 13:08 EST ,
== END 2021-10-30 23:59 | disposition home or self-care (01) ==
LOC: US 10:32
PROVIDERS: PCP Nurse Practitioner; Referring Provider Nurse Practitioner; Visit Provider Nurse Practitioner
DX: R10.11 Right upper quadrant pain (principal)
CPT/HCPCS: 76705

== ENCOUNTER 2021-11-06 09:54 | Outpatient (CLI) | payer MEDICARE, SELFPAY ==
--- NOTE | 2021-11-06 10:00 | PET_ITS ---
EXAMINATION: FDG PET/CT INDICATIONS: A 71-year-old female with history of pulmonary nodularity. COMPARISON EXAMINATION: CT of the chest report dated 10/25/21 INDEX LESION SIZE SUV INTERPRETATION Right lower posteromedial lung-right lower lobe, nodular 12.1-mm (frame 190) 6.3 Fulfills quantitative criteria for viable neoplasm NON-INDEX LESION SIZE SUV INTERPRETATION Right lower lung-right lower lobe, linear 1.8 Quantitative criteria for viable neoplasm are not fulfilled TECHNIQUE: Following the intravenous administration of 12.4 mCi of F-18 deoxyglucose via the right antecubital fossa, multiplanar image acquisitions of the neck, chest, abdomen and pelvis to level of mid thigh, obtained at one hour post radiopharmaceutical administration contemporaneously interpreted with the current CT of the neck, chest, abdomen and pelvis to level of mid thigh, dated 11/06/[address] of the chest report dated 10/25/21 reveal: SERUM GLUCOSE LEVEL: 102 mg/dl. HEIGHT: 67 inches. WEIGHT: 160 lbs. FINDINGS: 1. Focal increased glucose metabolism is manifest in the right lower posterior lung-right lower lobe, nodular in presentation. The calculated maximal standard uptake value is 6.3. The maximal axial diameter of the corresponding parenchymal density on review of CT of the chest dated 11/06/21 is 12.1-mm (transverse). 2. Normal physiologic distribution of the radiopharmaceutical is apparent in the hepatic (3.4) and splenic parenchyma, both renal units, bladder and visualized intestinal tract. The visualized portion of the cerebral cortical-subcortical structures demonstrate symmetric and preserved glucose metabolism. Diffuse radiopharmaceutical concentration is noted in all four quadrants of the abdomen and pelvis. Prominent radiopharmaceutical concentration is identified in the left ventricular myocardium commensurate with the [place]. There is a linear, non-nodular increase in tracer uptake observed in the right lower posterior lung-right lower lobe generating a calculated maximal standard uptake value of 1.8. Quantitative criteria for viable neoplasm are not fulfilled. Pertinent CT findings are as follows: CHEST: Emphysematous changes are defined in the bilateral upper-mid lung zones. There are no additional parenchymal densities-nodules defined in the right and left hemithorax with discernible increased tracer uptake. There is atherosclerotic calcification defined in the thoracic aorta without evidence of dilatation-aneurysm formation. Coronary arterial calcification is observed. Calcified and non-calcified mediastinal soft tissue densities are ametabolic. A rounded calcified density manifest in the right mid posterolateral lung is non-glucose avid. ABDOMEN AND PELVIS: The gallbladder is surgically absent. Atherosclerotic calcification is defined in the abdominal aorta. The maximal axial diameter of the abdominal aorta is 32.1-mm (transverse). Abdominal-pelvic arterial calcification is observed. Bilateral inguinal soft tissue with fatty hilus reveals no evidence of increased tracer uptake. Calcified granuloma formation is multifocally defined in the splenic parenchyma. SKELETAL: Degenerative changes are noted in the cervical, thoracic and lumbar spine without evidence of increased radiopharmaceutical concentration. Apparent vertebroplasty is noted at the level of the fourth and fifth lumbar vertebrae. PET/PET/CT Tumor Limited Initial IMPRESSION: 1. Increased FDG distribution noted in the right lower posteromedial lung-right lower lobe fulfills quantitative criteria for viable neoplasm. Histopathologic analysis is recommended. (Amelia et al, Annals of Internal Medicine, 138:724, 2003). 2. Enhanced tracer uptake, linear in presentation, noted in the right lower posterior lung-right lower lobe does not fulfill quantitative criteria for malignant transformation. Electronic Signature Cristino Gan D.O. Accurate Quantification of SUVs for this report are calculated using the exclusive [employer]. (U.S. Patent No. [id number] [id number]). Standardization and correction of the FDG SUV metric via [employer] technology allow for vendor non-specific objective quantitative examination comparison and optimization of the sensitivity and specificity of the FDG PET-CT examination. Electronically Signed: Cristino Gan DO at 8:12 EST ,
== END 2021-11-06 23:59 | disposition home or self-care (01) ==
PROVIDERS: PCP Nurse Practitioner; Referring Provider Nurse Practitioner; Visit Provider Nurse Practitioner
DX: R91.1 Solitary pulmonary nodule (principal)
CPT/HCPCS: 78814; A9552

== ENCOUNTER 2021-11-15 08:46 | Outpatient (CLI) | payer MEDICARE, SELFPAY ==
[2021-11-15] VITALS (19 sets, daily range): BP systolic 92–162; BP diastolic 31–104; PULSE 57–82; RESP 9–20; TEMP 36.5; O2SAT 90–100; BMI 25.0
--- NOTE | 2021-11-15 09:02 | CT_ITS ---
PROCEDURE: Percutaneous CT-guided lung biopsy. DATE OF EXAMINATION: 11/15/2021 INDICATION: Female, 71 years old. Right lung nodule. PHYSICIAN: Sid Lechuga DO RADIATION DOSAGE (If Supplied By Facility): CTDIvol = ( 8.53 ) mGy, smart step accumulated DLP = ( 619.07 ) mGycm. Total DLP: 1286.92 CONSENT: The risks, benefits and alternatives to the procedure were explained to the patient, and the patient agreed to the procedure and signed the consent. SEDATION: 2 mg VERSED, 100 mcg of FENTANYL. SEDATION START AND STOP TIME: 10:50 AM. 11:58 AM. LIDOCAINE: 10 mL of 2% LIDOCAINE. STERILE BARRIER TECHNIQUE: The following sterile barrier precautions were used during the procedure: hand hygiene; use of IODINE antiseptic solution; use of a mask, sterile gloves, sterile full and large sterile sheet. PROCEDURE/TECHNIQUE: (All elements of maximal sterile barrier technique followed.) The risks, benefits, and alternatives to the procedure were explained to patient, and the patient agreed to the procedure and signed a consent form for the procedure. A timeout was performed to confirm the patient''s identity, the type of procedure, to be performed and the site of entry. And initial helical psychologist counseling CT was obtained with the patient in a right oblique position. There is redemonstration of a 1.2 x 0.8 x 0.8 cm nodule abutting the posterior pleura in the right lower lobe corresponding to the PET avid nodule from 11/06/2021. An approach was selected and the skin was marked. The skin surface was prepared with usual sterile technique. 10 mL of 2% LIDOCAINE was injected subcutaneously and to the level of the pleura using CT guidance. A 19-gauge introducer needle was then attempted to be placed. During placement attempts, patient had difficulty remaining still. In addition along with the small size of the lesion and normal respiratory motion, placement of the needle was difficult. The needle was confirmed to be advanced into the nodule using CT guidance and 2 20-gauge core samples were obtained. Onsite pathology confirmed that the first sample demonstrates some benign-appearing reactive tissue. The second sample was inadequate. The patient slightly moved and along with changes in respiratory motion, the position of the needle was no longer directly within the nodule on CT. As there was developing trace adjacent parenchymal hemorrhage and patient was having more difficult time remaining still, and given difficulty in accessing the nodule the decision was made to an the exam. Gelfoam slurry was injected along the needle tract as the needle was withdrawn. Immediate postoperative CT images demonstrated no pneumothorax and trace hemorrhage at the biopsy site. There was also developing segmental subsegmental atelectasis in the right lung. Patient was sent to observation in stable condition. A 2 hour post procedure radiograph demonstrated no sizable pneumothorax, pleural effusion, or focal consolidation to suggest large hemorrhage. Patient was discharged home in stable condition. SAMPLES: 2 20-gauge core samples were obtained. Onsite pathology confirmed that the first sample demonstrates some benign-appearing reactive tissue. The second sample was inadequate. Please see pathology report for final findings. COMPLICATIONS: None. BLOOD LOSS: None. CT/Biopsy/Inj or Needle Placement IMPRESSION: CT-guided percutaneous biopsy of the right lung nodule of concern as detailed above. 2 samples were obtained with Onsite pathology confirming that the first sample demonstrated some benign-appearing reactive tissue. The second sample was inadequate. Additional samples were not obtained due to difficulty in accessing the nodule given factor such as small size of the nodule, difficulty of the patient to remain still, and normal respiratory motion. Recommendation: These findings may relate to benign reactive changes based on initial Onsite pathology, however, malignancy cannot be entirely excluded due to difficulty of biopsy. Correlation with the final pathology report is recommended. 3 month follow-up examinations are also recommended to assess temporal stability. If there is interval growth, recommend reconsultation for biopsy. Recommendations were discussed with the patient who will follow up with the primary ordering physician for management. Electronically Signed: Sid Lechuga, at 16:03 EDT ,
[2021-11-15 09:05] LABS: Platelet Count 248 K/mm3 (150-450)
[2021-11-15 09:25] LABS: International Normalized Ratio 1.1; Partial Thromboplast Time 25.5 Seconds (24.1-36.2); Prothrombin Time (Protime)PT. 13.2 SECONDS (11.7-14.9)
[2021-11-15] MEDS: Midazolam 2 MG/2 ML Syringe IV ×2 (10:50→11:27)
[2021-11-15] MEDS: fentaNYL 100 MCG/2 ML Ampul IV ×2 (10:52→11:28)
[2021-11-15] MEDS: Lidocaine 2% (20 ml mdv) 20 ML Vial INFILT (10:52)
--- NOTE | 2021-11-15 11:00 | ASPIGT_PTH ---
PATIENT: MOISÉS PADILLA [facility]: [facility] U#:[id number] AGE/SX: 71/F ROOM: RE11/15/[address]: ADAM Fraser : 1950 BED: DIS: 11/15/2021 SPEC #: [id number] RECD: 11/15/21 11:30 STATUS: JACOB IRLANDA #: [id number] TORIBIO: 11/15/21 11:[address]: Isatu Benson NP DEPT: SURGICAL PATHOLOGY RECD BY: Tessa Laoz Tissues: Lung, NOS Procedures: FNA Specimen Adequacy Special Stain Group II Surgery Specimen Level IV Imprint (control) HEADER OPERATION: CT-guided right lung biopsy PRE-OP DIAGNOSIS: Right lung mass TISSUE SUBMITTED: Right lung mass 20-gauge x2 cores MICROSCOPIC DIAGNOSIS Right lung mass, CT-guided biopsy: Benign bronchial and sub-bronchial tissue with mild fibrosis and anthracotic pigment. AM:prashant 11/18/2021 COMMENT The specimen is evaluated at the time of biopsy by Dr. Caballero. Immediate Evaluation: Pass 1 ? Benign bronchial epithelial cells present. Pass 2 ? Blood. Rare benign bronchial epithelial cells present. MICROSCOPIC DESCRIPTION Slides are reviewed. GROSS DESCRIPTION Received in fixative is one container labeled with the patient's name and designated right lung mass. The specimen consists of two minute fragments of light vega soft tissue that in aggregate measure <0.1 x <0.1 x <0.1 cm. The specimen is totally submitted in one cassette. Two touch imprints are prepared at the time of core biopsy. / AM:prashant 11/15/2021 TC:5 CPT: 74048, 60050, 04783
--- NOTE | 2021-11-15 12:15 | RAD_ITS ---
INDICATION: pneumothorax -- Immediately post lung biopsy EXAMINATION/TECHNIQUE: X-RAY - XR Chest 2 Views COMPARISON: PET/CT from 11/06/2021. Chest radiograph from 08/29/2021. FINDINGS/ RAD/Chest Insp/Exp 2 View IMPRESSION: Support devices: None. Mild bibasilar atelectasis. Trace linear opacities in the periphery of the right lung base may relate to trace hemorrhage from biopsy. No sizable pleural effusion or pneumothorax. Heart size is stable. Bones and soft tissues are unchanged. Electronically Signed: Sid Lechuga, at 13:18 EDT ,
--- NOTE | 2021-11-15 12:30 | RAD_ITS ---
INDICATION: pneumothorax -- 2 hours post lung biopsy EXAMINATION/TECHNIQUE: X-RAY - XR Chest 2 Views COMPARISON: None. FINDINGS/ RAD/Chest Insp/Exp 2 View IMPRESSION: Support devices: None. Resolution of the right lower lobe atelectasis. No focal consolidations, sizable pleural effusion, or sizable pneumothorax. Heart size is stable. Bones and soft tissues are unchanged. Electronically Signed: Sid Lechuga, at 16:07 EDT ,
[2021-11-15] MEDS: Acetaminophen 500 MG Tablet PO (13:23)
--- NOTE | 2021-11-15 14:56 | NURSING ---
During vital signs at 1315 pt SpO2 dropped to 87% on room air, patient drowsy, occasionally falling asleep. When pt is engaged and speaking SpO2 immediately goes up to 97-99% on room air. Pt denies pain.
== END 2021-11-15 23:59 | disposition home or self-care (01) ==
LOC: CT 08:47
PROVIDERS: PCP Nurse Practitioner; Visit Provider Nurse Practitioner
DX: R91.1 Solitary pulmonary nodule (principal); J93.9 Pneumothorax, unspecified; R91.8 Other nonspecific abnormal finding of lung field; I65.21 Occlusion and stenosis of right carotid artery
CPT/HCPCS: 32408; 36415; 71046; 77012; 85049; 85610; 85730; 88172; 88305; 88313; 99156; 99157; J7040; A4216

== ENCOUNTER → 2022-01-22 | Outpatient (CLI) | payer MEDICARE, SELFPAY ==
[2022-01-22 18:46] LABS: ALB/GLOB Ratio 0.9 RATIO (0.9-2.4); AST(SGOT) 16 U/L (15-37); Alanine Aminotransfer ALT/SGPT 17 U/L (13-56); Albumin, Serum 3.7 g/dL (3.2-5.0); Alkaline Phosphatase 87 U/L (45-117); Amylase 60 U/L (25-115); Anion Gap 4 (5-15); BUN 23 mg/dL (7-18); Bilirubin, Direct 0.09 mg/dL (0.00-0.30); Calcium,Total 9.4 mg/dL (8.5-10.1); Chloride 107 mmol/L (98-107); Creatinine, Serum 1.35 mg/dL (0.55-1.02); EST Glomerular Filtration Rate 41 mL/min (>60); Est Glom Filt Rate - Afr Amer 50 mL/min (>60); Glucose 142 mg/dL (74-106); Lipase 228 U/L (73-393); Potassium 4.1 mmol/L (3.5-5.1); Protein, Total 7.7 g/dL (6.4-8.2); Sodium Level 139 mmol/L (136-145)
== END | disposition home or self-care (01) ==
LOC: MFPLAB 16:40
PROVIDERS: PCP Nurse Practitioner; Referring Provider Nurse Practitioner; Visit Provider Urology
DX: R10.9 Unspecified abdominal pain (principal)
CPT/HCPCS: 36415; 80053; 82150; 82248; 83690

== ENCOUNTER 2022-02-27 11:08 | Day surgery (SDC) | payer MEDICARE, SELFPAY ==
[2022-02-27] VITALS (7 sets, daily range): BP systolic 127–146; BP diastolic 52–64; PULSE 63–68; RESP 16; TEMP 36.1–36.6; O2SAT 90–98; BMI 24.1
[2022-02-27 11:26] LABS: Mucous, Urine 0 SEEN /hpf (<or=2+)
[2022-02-27 11:28] LABS: Color, Urine Yellow (Yellow); Glucose, Dipstick Normal (Normal); Ketone-Dipstick Negative (Negative); Leukocyte Esterase-Dipstick 500 /ul (Negative); Nitrite-Dipstick Positive (Negative); Occult Blood-Urine 150 /ul (Negative); Protein-Dipstick 30 mg/dl (Negative); Urine Bilirubin Dipstick Negative (Negative); Urine Clarity Turbid (Clear); Urine Urobilinogen Normal (Normal)
[2022-02-27 11:46] LABS: Bacteria 2+ /hpf (None Seen); Red Blood Cells-Urine 10-25 SEEN /hpf (0-5); Squamous Epithelial Cells - UA 0-5 SEEN /hpf (5-10); White Blood Cells 50-100 SEEN /hpf (0-5)
[2022-02-27] MEDS: Lactated Ringers 1,000 ML 30 ML IV (12:30)
[2022-02-27] MEDS: Cefazolin 2 GM in 0.9% Normal Saline 100 ML IV (13:05)
--- NOTE | 2022-02-27 13:12 | PCM.HP.STD ---
HPI - General HPI Narrative MOISÉS PADILLA, is a 71 F who presents for cystoscopy, left ureteroscopy, holmium laser lithotripsy, left ureteral stent insertion. She was diagnosed with these issues last week. Coming into the hospital today, she has not been on her antibiotics as prescribed and a urinalysis reveals turbid urine consistent with urinary tract infection. She continues to have nausea with mild and intermittent left flank and abdominal pain. No fevers or chills. After discussing the risks, we have agreed to proceed with cystoscopy and left ureteral stent insertion with management of her infection and return for laser intervention at a later time. Informed consent was obtained. [facility] Medical History (Updated 02/27/22 @ 13:[address] Zoe Liu MD) AAA (abdominal aortic aneurysm) Anxiety Chronic obstructive lung disease COVID-19 Easy bruising Ectopic beats Essential hypertension Gastric reflux Hypothyroidism Impetigo Irregular heart beat Kidney stones Left bundle branch block Left renal stone Left ureteral stone PAD (peripheral artery disease) Pancreatitis Pure hypercholesterolemia Sleep apnea Smoker Stenosis of right carotid artery Tobacco user Urinary tract infection Wears dentures Wears glasses Home Medications alprazolam 0.5 mg tablet (Xanax) 0.25 mg PO QHS PRN Insomnia 10/08/13 [History Last Taken Unknown] escitalopram oxalate 20 mg tablet (Lexapro) 20 mg PO QHS anxiety 10/08/13 [History Last Taken 10/16/18] ezetimibe 10 mg tablet (Zetia) 10 mg PO DAILY cholesterol 10/08/13 [History Last Taken 08/28/21 11:26] omeprazole 20 mg capsule,delayed release 40 mg PO DAILY GERD 12/04/15 [History Last Taken 08/29/21 12:51] metoprolol succinate 25 mg tablet,extended release 24 hr 12.5 mg PO QDAY BP 08/17/17 [History Last Taken 02/27/22] tiotropium bromide 18 mcg capsule with inhalation device (Spiriva with HandiHaler) 1 cap inhalation QDAY COPD 08/17/17 [History Last Taken 10/17/18] levothyroxine 88 mcg tablet 88 mcg PO DAILY thyroid 06/11/18 [History Last Taken 02/27/22] albuterol sulfate 90 mcg/actuation aerosol inhaler 1 - 2 puff inhalation Q4H PRN PRN Sob &/Or Wheezing ##1 10/19/18 [Rx Last Taken Unknown] cholecalciferol (vitamin D3) 25 mcg (1,000 unit) tablet 25 mcg PO DAILY 09/24/20 [History Last Taken Unknown] Bacillus coagulans 250 million cell chewable tablet (Probiotic (B. coagulans)) 250 cell PO DAILY 11/15/21 [History Last Taken Unknown] ondansetron HCl 8 mg tablet 8 mg PO DAILY PRN nausea 11/15/21 [History Last Taken Unknown] Allergy/AdvReac Type Severity Reaction Status Date / Time azithromycin [From Zithromax] Allergy Hives Verified 02/27/22 12:09 cortisone [Cortisone] Allergy Swelling Verified 02/27/22 12:09 erythromycin base Allergy Other Verified 02/27/22 12:09 [Erythromycin Base] Family History Mother Cancer Hx stomach cancer. Father Cancer Hx prostate CA. Surgical History (Updated 02/25/22 @ 12:39 by Chandni Ortega) History of appendectomy History of back surgery (~04/22/19) History of carotid endarterectomy (~2012) History of cholecystectomy History of sinus surgery Hx of hysterectomy Social History household members: family Smoking Status: Current every day smoker tobacco type: cigarettes alcohol intake: never substance use type: does not use ROS Constitutional Constitutional: Reports fatigue; Denies body ache(s), chills or fever(s) Eyes Eyes: Reports systems reviewed and no addt'l complaints, except as documented ENT HEENT: Reports systems reviewed and no addt'l complaints, except as documented Cardiovascular Cardiovascular: Denies chest pain or dyspnea Respiratory/Chest Respiratory/Chest: Denies cough, dyspnea or pain on inspiration Gastrointestinal Gastrointestinal: Reports nausea; Denies vomiting Genitourinary Genitourinary: Reports low back pain and urinary urgency Musculoskeletal Musculoskeletal: Reports systems reviewed and no addt'l complaints, except as documented Integumentary Integumentary: Reports systems reviewed and no addt'l complaints, except as documented Neurologic Neurologic: Reports systems reviewed and no addt'l complaints, except as documented Psychiatric Psychiatric: Reports systems reviewed and no addt'l complaints, except as documented Endocrine Endocrinology: Reports systems reviewed and no addt'l complaints, except as documented Hematologic/Lymphatic Hematologic/Lymphatic: Reports systems reviewed and no addt'l complaints, except as documented Allergic/Immunologic Allergic/Immunologic: Reports systems reviewed and no addt'l complaints, except as documented Vital Signs Vital Signs Vital Signs: 02/27/22 12:12 02/27/22 12:12 Temperature 97.7 F L Temperature Source Temporal Pulse Rate 67 Respiratory Rate 16 Respiratory Pattern Normal Blood Pressure 146/64 H Blood Pressure Mean 91 Blood Pressure Source Monitor Blood Pressure Position Semi-Fowlers Blood Pressure Location Left Arm Pulse Ox 98 Oxygen Delivery Method Room Air Weight Weight: 70 kg Body Mass Index (BMI) 24.1 Physical Exam Const alert, oriented x3 and no apparent distress General Appearance: cooperative and comfortable HEENT normocephalic, head/scalp atraumatic, hearing grossly normal bilaterally, external ears normal and external nose normal Eyes General Eye: normal appearance of both eyes Neck supple General: trachea midline Lymph Lymphatic: no lymphedema noted Chest inspection of chest normal Chest: symmetrical chest wall rise Resp normal respiratory effort, normal air movement and no retractions Cardio regular rate and regular rhythm GI Palpation: soft; Negative for guarding Bladder / Kidney Exam: CVA tenderness left Extremity normal to inspection Skin no rashes or lesions noted Neuro oriented x3, CN's II-XII intact bilaterally and moves all extremities Psych mental status grossly normal, thought process normal, cooperative and affect normal Results Lab / Micro Data Attestation: I reviewed the patient's lab results. Labs: Laboratory Results - last 24 hr 02/27/22 11:20: Urine Color Yellow, Urine Clarity Turbid, Urine pH 7.0, Ur Specific [place] 1.010, Urine Protein 30 H, Urine Glucose (UA) Normal, Urine Ketones Negative, Urine Occult Blood 150 H, Urine Nitrite Positive H, Urine Bilirubin Negative, Urine Urobilinogen Normal, Ur Leukocyte Esterase 500 H, Urine RBC 10-25 SEEN, Urine WBC 50-100 SEEN, Ur Squamous Epith Cells 0-5 SEEN, Urine Bacteria 2+, Urine Mucus 0 SEEN Assessment & Plan Assessment/Plan (1) Left renal stone: (2) Left ureteral stone: (3) Urinary tract infection: PLAN: Plan proceed with cystoscopy and left ureteral stent insertion home with antibiotics reschedule the lithotripsy for 2-3 weeks
--- NOTE | 2022-02-27 13:17 | DCINST_ITS ---
Discharge Instructions Diet Discharge Diet: No restrictions Activity Discharge Activity: Return to Normal Activity May resume sexual activity in: No Restrictions Dressing / Incision Call your doctor if you observe: Fever of 101 or Higher, Inability to urinate and Inability to have a bowel movement Follow Up Care Please Follow Up With: Zoe Liu MD When: call the office for instructions for the next procedure. Test Results: Test results from this visit will be discussed in further detail at your follow- up appointment, if applicable. Discharge Plan Admission Attending Provider: Zoe Liu Primary Care Provider: Mayela Bright Discharge Orders/Prescriptions Prescriptions: New oxycodone-acetaminophen [Percocet] 5-325 mg tablet 1 tab PO Q8H PRN (Reason: pain) 3 Days Qty: 10 0RF phenazopyridine [Pyridium] 200 mg tablet 200 mg PO TID PRN PRN (Reason: Bladder Spasms) 7 Days Qty: 30 0RF Continued metoprolol succinate 25 mg tablet extended release 24 hr 12.5 mg PO QDAY tiotropium bromide [Spiriva with HandiHaler] 18 mcg capsule, w/inhalation device 1 cap INHALATION QDAY levothyroxine 88 mcg tablet 88 mcg PO DAILY cholecalciferol (vitamin D3) 25 mcg (1,000 unit) tablet 25 mcg PO DAILY alprazolam [Xanax] 0.5 MG tablet 0.25 mg PO QHS PRN (Reason: Insomnia) Label Comments: anxiety escitalopram oxalate [Lexapro] 20 MG tablet 20 mg PO QHS Label Comments: anxiety ezetimibe [Zetia] 10 MG tablet 10 mg PO DAILY Label Comments: cholesterol levels omeprazole 20 MG capsule 40 mg PO DAILY Label Comments: GERD albuterol sulfate 1 INHALER inhaler 1 - 2 puff inhalation Q4H PRN PRN (Reason: Sob &/Or Wheezing) Qty: 1 0RF Probiotic (B. coagulans) 250 million cell Tablet,Chewable 250 cell PO DAILY Changed ondansetron HCl 8 mg Tablet 8 mg PO BID 3 Days Qty: 6 0RF Referrals / Follow Up: Mayela Bright MD [Primary Care Provider] - Disposition Disposition (needs filled in before D/C Order can be placed): Home, Self Care
--- NOTE | 2022-02-27 13:22 | PCM.OPRPT ---
Report of Operation Date of Procedure: 02/27/22 Pre-Operative Diagnosis: Left renal and ureteral calculus, urinary tract infection Post-Operative Diagnosis: Same Surgery/Procedure Performed:: Cystoscopy with left ureteral stent insertion Surgeon: Zoe Liu Type of Anesthesia: MAC Specimen's removed: Urine for culture Description of Procedure: The patient is a 71-year-old female with left ureteral and renal calculi and a urinary tract infection. She presents for insertion of a ureteral stent. Informed consent was obtained. The patient was taken to the operating room and placed on the operating room table. Anesthesia monitored the head, neck, airway, IV access and vital signs throughout the case. Once anesthesia was appropriately administered, the patient was placed into dorsal lithotomy position was prepped and draped in usual sterile fashion. The cystoscope was then inserted through the urethra under direct visualization. The urine was purulent and the bladder was emptied. The bladder appeared to be inflamed, no obvious mass lesions were identified. The left ureteral orifice was identified and easily intubated with a 0.035 Glidewire seen curling within the renal pelvis. A 6 Austrian 26 cm JJ stent was passed over the wire with some difficulty proximally. It was eventually curled in the renal pelvis as well as the urinary bladder. Urine from the stent was then sent for culture. The patient's bladder was emptied, the cystoscope was removed and the case was terminated. She was awakened and taken to the recovery room in good condition. There were no complications during this procedure. Grafts/Implants Used: 6 x 26 JJ stent Complications None Admit VTE Documentation VTE Present on Admission: Yes VTE Mechan Device Prophylaxis: SCD's VTE Pharm Prophylaxis ordered?: No Reason prophylaxis not ordered:: Treatment Not Indicated
== END 2022-02-27 15:18 | disposition home or self-care (01) ==
LOC: SDC 11:10 → AC 11:27
PROVIDERS: PCP Internal Medicine; Referring Provider Urology; Visit Provider Urology
PROC: 0TJ98ZZ Inspection of Ureter, Via Natural or Artificial Opening Endoscopic (ICD-10-PCS; CPT 52352; principal; 2022-02-27 12:55)
DX: N20.2 Calculus of kidney with calculus of ureter (principal); J44.9 Chronic obstructive pulmonary disease, unspecified; N39.0 Urinary tract infection, site not specified; I10 Essential (primary) hypertension; I44.7 Left bundle-branch block, unspecified; E78.00 Pure hypercholesterolemia, unspecified; E03.9 Hypothyroidism, unspecified; K21.9 Gastro-esophageal reflux disease without esophagitis; F41.9 Anxiety disorder, unspecified; F17.200 Nicotine dependence, unspecified, uncomplicated; Z79.899 Other long term (current) drug therapy; Z86.16 Personal history of COVID-19
CPT/HCPCS: 52332; 00910; 76000; 81001; 87077; 87086; 87088; 87186; J7120; C2617; J2405

== ENCOUNTER → 2022-03-17 | Outpatient (CLI) | payer MEDICARE, SELFPAY ==
--- NOTE | 2022-03-17 14:25 | CT_ITS ---
INDICATION: Pulmonary nodule. EXAMINATION: CT CHEST WITHOUT CONTRAST TECHNIQUE: Helically acquired images were obtained of the chest. A radiation dose optimization technique was used for this scan. IV Contrast dosage and agent: None. COMPARISON: September 17, 2021. August 29, 2022. CT PET scan November 06, 2021. FINDINGS: LUNGS, PLEURA AND LARGE AIRWAYS: No masses, consolidation, or edema. No pleural effusion or thickening. No pneumothorax. Emphysematous changes. Densely calcified nodule measuring 1.1 x 1.0 cm posterior pleural surface of the right upper lobe unchanged. Along the posterior pleural surface of the right lower lobe is a 1.3 x 0.9 cm noncalcified lung nodule slightly increased in size since August 29, 2021 where it measured 0.8 x 0.7 cm (July 2021 )as determined by this examiner on both studies, axial image 63 series 2. There is a medial projection extending from the nodule present previously. This nodule fulfilled criteria for viable neoplasm in prior PET/CT scan. THYROID: No thyroid lesions. HEART AND PERICARDIUM: Heart size is normal. Small pericardial effusion. CORONARY ARTERIES: Coronary artery calcification VESSELS: Thoracic aorta is not dilated. Scattered atherosclerotic calcification of the thoracic aorta. MEDIASTINUM AND PENELOPE: Calcified mediastinal lymph node. 2.1 x 1.1 cm precarinal lymph node with a fatty hilum compatible with a reactive lymph node. 1.3 x 0.8 cm AP window lymph node. Esophagus is unremarkable. No hiatal hernia. UPPER ABDOMEN: Multiple punctate calcifications throughout the spleen. BONES: No suspicious lytic or blastic abnormality. CT/Chest without Contrast IMPRESSION: Slight increase in size of right lower lobe noncalcified lung nodule which met criteria for viable neoplasm on the prior PET CT scan. Old granulomatous disease. Emphysematous changes. Electronically Signed: Gabriel Patton MD at 7:52 EDT Reading Location ID and State: [id number] / , Service support ,
== END | disposition home or self-care (01) ==
LOC: CT 14:24
PROVIDERS: PCP Nurse Practitioner Family; Referring Provider Internal Medicine Pulmonary Disease; Visit Provider Internal Medicine Pulmonary Disease
DX: R91.1 Solitary pulmonary nodule (principal)
CPT/HCPCS: 71250

== ENCOUNTER → 2022-06-10 | Outpatient (CLI) | payer MEDICARE, SELFPAY | END | disposition home or self-care (01) | PROVIDERS: PCP Nurse Practitioner Family; Visit Provider Nurse Practitioner Family | DX: R05.3 Chronic cough (principal) | CPT/HCPCS: 87633 ==

== ENCOUNTER 2022-06-11 12:58 | Emergency (ER) | payer MEDICARE, SELFPAY ==
[2022-06-11] VITALS (7 sets, daily range): BP systolic 110–141; BP diastolic 59–87; PULSE 62–80; RESP 14–20; TEMP 36.4–36.6; O2SAT 95–98; BMI 25.0
--- NOTE | 2022-06-11 14:22 | EKG12_ITS ---
Test Reason : SOB Blood Pressure : / mmHG Vent. Rate : 068 BPM Atrial Rate : 068 BPM P-R Int : 114 ms QRS Dur : 130 ms QT Int : 442 ms P-R-T Axes : 075 021 207 degrees QTc Int : 469 ms Normal sinus rhythm Left bundle branch block Abnormal ECG Confirmed by KALEY PARMAR, CHACORTA ([id number]), proposal editor HIRA SAXENA ([id number]) on 06/12/2022 2:05:30 P M Referred By: LIVIER Confirmed By:PARKER ROCHE MD
--- NOTE | 2022-06-11 14:59 | EDS_ITS ---
HPI History of Present Illness Chief Complaint: Cough Informant: patient Onset/Context/Timing Onset: Days Context: Gradual Onset Current Severity: Moderate Narrative Narrative: Patient presents with cough and URI symptoms that started mid to late last week. Patient reports dry cough with pain around the right lower ribs. She denies fever. She has had nausea but no vomiting. She complains of generalized weakness. She was reportedly seen at [facility] and by her primary care physician. Rapid COVID test was negative. PCR COVID test on the sixth was ne bettie as well. [facility] Medical History AAA (abdominal aortic aneurysm) Anxiety Chronic obstructive lung disease COVID-19 Easy bruising Ectopic beats Essential hypertension Gastric reflux Hypothyroidism Impetigo Irregular heart beat Kidney stones Left bundle branch block Left renal stone Left ureteral stone PAD (peripheral artery disease) Pancreatitis Pure hypercholesterolemia Sleep apnea Smoker Stenosis of right carotid artery Tobacco user Urinary tract infection Wears dentures Wears glasses Home Medications alprazolam 0.5 mg tablet (Xanax) 0.25 mg PO QHS PRN Insomnia 10/08/13 [History Last Taken Unknown] escitalopram oxalate 20 mg tablet (Lexapro) 20 mg PO QHS anxiety 10/08/13 [History Last Taken 10/16/18] ezetimibe 10 mg tablet (Zetia) 10 mg PO DAILY cholesterol 10/08/13 [History Last Taken 08/28/21 11:26] omeprazole 20 mg capsule,delayed release 40 mg PO DAILY GERD 12/04/15 [History Last Taken 08/29/21 12:51] tiotropium bromide 18 mcg capsule with inhalation device (Spiriva with HandiHaler) 1 cap inhalation QDAY COPD 08/17/17 [History Last Taken 10/17/18] levothyroxine 88 mcg tablet 88 mcg PO DAILY thyroid 06/11/18 [History Last Taken 02/27/22] albuterol sulfate 90 mcg/actuation aerosol inhaler 1 - 2 puff inhalation Q4H PRN PRN Sob &/Or Wheezing ##1 10/19/18 [Rx Last Taken Unknown] cholecalciferol (vitamin D3) 25 mcg (1,000 unit) tablet 25 mcg PO DAILY 09/24/20 [History Last Taken Unknown] Bacillus coagulans 250 million cell chewable tablet (Probiotic (B. coagulans)) 250 cell PO DAILY 11/15/21 [History Last Taken Unknown] oxycodone-acetaminophen 5 mg-325 mg tablet (Percocet) 1 tab PO Q8H PRN pain 3 days #10 tabs 02/27/22 [Rx Last Taken Unknown] phenazopyridine 200 mg tablet (Pyridium) 200 mg PO TID PRN PRN Bladder Spasms 7 days #30 tabs 02/27/22 [Rx Last Taken Unknown] amlodipine 10 mg tablet 10 mg PO DAILY this is a dose increase #30 tabs 05/09/22 [Rx Last Taken Unknown] metoprolol succinate 25 mg tablet,extended release 24 hr 25 mg PO BID BP #60 tabs 05/15/22 [Rx Last Taken Unknown] ondansetron HCl 8 mg tablet 8 mg PO BID PRN 05/15/22 [History Last Taken Unknown] codeine 10 mg-guaifenesin 100 mg/5 mL oral liquid 5 ml PO Q6H PRN cough #120 mL 06/11/22 [Rx Last Taken Unknown] Allergy/AdvReac Type Severity Reaction Status Date / Time azithromycin [From Zithromax] Allergy Hives Verified 06/11/22 12:59 cortisone [Cortisone] Allergy Swelling Verified 06/11/22 12:59 erythromycin base Allergy Other Verified 06/11/22 12:59 [Erythromycin Base] Family History Mother Cancer Hx stomach cancer. Father Cancer Hx prostate CA. Surgical History History of appendectomy History of back surgery (~04/22/19) History of carotid endarterectomy (~2012) History of cholecystectomy History of sinus surgery Hx of hysterectomy Social History household members: family Smoking Status: Current every day smoker tobacco type: cigarettes alcohol intake: never substance use type: does not use ROS ROS ED Constitutional Constitutional ED: Denies chills or fever(s) Eyes Eyes: Denies change in vision or discharge from eye(s) ENT ENT ED: Denies discharge from eye(s), rhinorrhea or sore throat Cardiovascular Cardiovascular: Reports chest pain; Denies palpitations Respiratory/Chest Respiratory/Chest: Reports cough and dyspnea Gastrointestinal Gastrointestinal: Reports nausea; Denies abdominal pain, diarrhea or vomiting Genitourinary Genitourinary ED: Denies dysuria Musculoskeletal Musculoskeletal: Reports back pain; Denies extremity pain Integumentary Denies Abrasions or rash Neurologic Neurologic: Reports weakness; Denies headache(s) Psychiatric Psychiatric: Denies anxiety or depression Allergic/Immunologic Allergic/Immunologic ED: Denies lip swelling or urticaria EXAM Physical Exam Const Vital Signs: 06/11/22 13:00 06/11/22 14:35 06/11/22 14:46 Temperature 97.8 F 97.6 F L Temperature Source Temporal Temporal Pulse Rate 75 66 Respiratory Rate 16 18 Respiratory Effort Normal Non-Labored Respiratory Depth Normal Respiratory Pattern Normal Blood Pressure 141/59 H 137/87 H Blood Pressure Mean 86 103 Pulse Ox 98 96 Oxygen Delivery Method Room Air Room Air Room Air 06/11/22 15:00 06/11/22 17:17 06/11/22 17:47 Temperature 97.8 F Temperature Source Temporal Pulse Rate 62 70 80 Respiratory Rate 20 H 16 14 Respiratory Effort Respiratory Depth Respiratory Pattern Normal Blood Pressure 131/82 H 110/63 Blood Pressure Mean 98 78 Pulse Ox 95 96 Oxygen Delivery Method Room Air Room Air Positive well nourished and well developed General Appearance ED: well developed HEENT Reports normocephalic and head/scalp atraumatic Eyes PERRL and EOMs intact bilaterally Neck supple Chest Wall inspection of chest normal and palpation of chest normal Resp normal respiratory effort and clear to auscultation bilaterally Cardio regular rate and regular rhythm GI normal to inspection, nondistended, normoactive bowel sounds Palpation: soft Extremity normal to inspection Neuro oriented x3 and no sensory deficits noted Sensorium / Orientation: alert Motor Exam: strength 5/5 throughout Psych mental status grossly normal Skin no rashes or lesions noted MDM MDM MDM Narrative Medical decision making narrative: Lab work obtained along with chest x-ray. COVID test and viral respiratory panel sent. While we are waiting test results patient was given Robitussin-AC to help control cough and a DuoNeb treatment. Lab Data Attestation: I reviewed the patient's lab results. Labs: Laboratory Results - last 24 hr 06/11/22 06/11/22 15:10 15:10 WBC 6.1 RBC 4.73 Hgb 14.4 Hct 43.3 MCV 91.5 MCH 30.4 MCHC 33.3 RDW Std Deviation 45.4 H RDW Coeff of Douglas 13.4 Plt Count 234 MPV 8.8 Immature Gran % (Auto) 0.700 Neut % (Auto) 85.8 H Lymph % (Auto) 9.7 L [place] % (Auto) 2.8 Eos % (Auto) 0.5 Baso % (Auto) 0.5 Absolute Neuts (auto) 5.2 Absolute Lymphs (auto) 0.59 L Nucleated RBC % 0 Differential Comment SEE COMMENT Diff Path Review N/A Platelet Estimate ADEQUATE RBC Morphology N CHROM Anisocytosis RARE Macrocytosis RARE Sodium 139 Potassium 4.4 Chloride 106 Carbon Dioxide 27.0 Anion Gap 6 BUN 20 H Creatinine 1.28 H Estim Creat Clear Calc 38.63 Est GFR (MDRD) Af Amer 53 L Est GFR (MDRD) Non-Af 44 L BUN/Creatinine Ratio 15.6 Glucose 127 H Calcium 9.4 Total Bilirubin 0.40 Direct Bilirubin 0.13 AST 19 ALT 18 Alkaline Phosphatase 104 Total Protein 7.7 Albumin 3.7 Globulin 4.0 Radiography Chest X-Ray - ED: 1 View, Read by ED Physician, Chronic Changes and No Infi ltrates Diagnostic Testing: Clinical Impression(s) from Imaging Studies Chest X-Ray 06/11/22 15:25 IMPRESSION: Hyperinflation. Mild increased markings at the lung bases suggestive of bibasilar atelectasis and/or scarring. Electronically Signed: Ethan Samuel MD at 15:37 EDT , EKG Initial EKG: Attestation: I personally reviewed and interpreted this EKG as follows: Interpretation: Sinus Rhythm (Sinus at 68 with left bundle branch block. No acute ischemia.) Treatment and Re-Evaluation Narrative: On repeat evaluation patient resting comfortably. She has not been hypoxic here. Chest x-ray per my interpretation reveals no focal infiltrate. Radiology interpretation reviewed and agrees. CBC reveals a normal white count. 85% neutrophils are noted. Chemistry studies reveal a BUN of 20 and a creatinine 1.28. Glucose is 127. LFTs normal. COVID test is negative. Viral respiratory panel returns normal. Test results are discussed with the patient. At this time I do not feel that she needs hospital admission. She is not hypoxic. I believe she is a viral upper respiratory infection and will simply need to run its course. I will write her for cough medicine. Return instructions are provided. Discharge Plan Triage Chief Complaint: Cough ED Provider: Tavia Cavazos Dx/Rx/DC Orders Clinical Impression: Viral URI Instructions: ED URI, Viral W/ Wheezing (Adult) Prescriptions: New codeine-guaifenesin 10-100 mg/5 mL liquid 5 ml PO Q6H PRN (Reason: cough) Qty: 120 0RF No Action tiotropium bromide [Spiriva with HandiHaler] 18 mcg capsule, w/inhalation device 1 cap INHALATION QDAY levothyroxine 88 mcg tablet 88 mcg PO DAILY cholecalciferol (vitamin D3) 25 mcg (1,000 unit) tablet 25 mcg PO DAILY ondansetron HCl 8 mg tablet 8 mg PO BID PRN metoprolol succinate 25 mg tablet extended release 24 hr 25 mg PO BID Qty: 60 11RF alprazolam [Xanax] 0.5 MG tablet 0.25 mg PO QHS PRN (Reason: Insomnia) Label Comments: anxiety escitalopram oxalate [Lexapro] 20 MG tablet 20 mg PO QHS Label Comments: anxiety ezetimibe [Zetia] 10 MG tablet 10 mg PO DAILY Label Comments: cholesterol levels omeprazole 20 MG capsule 40 mg PO DAILY Label Comments: GERD albuterol sulfate 1 INHALER inhaler 1 - 2 puff inhalation Q4H PRN PRN (Reason: Sob &/Or Wheezing) Qty: 1 0RF Probiotic (B. coagulans) 250 million cell Tablet,Chewable 250 cell PO DAILY oxycodone-acetaminophen [Percocet] 5-325 mg tablet 1 tab PO Q8H PRN (Reason: pain) 3 Days Qty: 10 0RF phenazopyridine [Pyridium] 200 mg tablet 200 mg PO TID PRN PRN (Reason: Bladder Spasms) 7 Days Qty: 30 0RF amlodipine 10 mg tablet 10 mg PO DAILY Qty: 30 11RF Primary Care Provider: Elizabeth Faustin Referrals: Elizabeth Faustin, [employer] [Primary Care Provider] - 1 Week Disposition Disposition: Home, Self Care
[2022-06-11 15:22] LABS: Absolute Lymphocyte Count 0.59 X10^3/uL (0.83-4.51); Absolute Neutrophil Count 5.2 X10^3/uL (2.0-7.7); Basophil# 0.03 X10^3/uL; Basophil% 0.5 % (0-1); Eosinophil# 0.03 X10^3/uL; Eosinophils% 0.5 % (0-5); Hematocrit 43.3 % (37-47); Hemoglobin 14.4 g/dL (12.0-15.0); Lymphocyte # 0.59 X10^3/ul (0.83-4.51); Lymphocyte % 9.7 % (19-41); Mean Corp Hgb Conc 33.3 g/dL (32-36); Mean Corpuscular Hgb 30.4 pg (27.0-32.0); Mean Corpuscular Volume 91.5 fL (81-99); Mean Platelet Vol. 8.8 fl (6.2-12.0); Monocyte# 0.17 X10^3/uL; Monocyte% 2.8 % (0-10); NRBC Flagged by Analyzer 0 % (0-5); Neutrophil # 5.21 X10^3/uL (2.7-7.7); Neutrophil % 85.8 % (47-70); POSITIVE DIFFERENTIAL YES; Platelet Count 234 K/mm3 (150-450); RBC Distribution Width CV 13.4 % (11.6-14.6); RBC Distribution Width SD 45.4 fl (35.1-43.9); Red Blood Count 4.73 M/mm3 (4.2-5.4); White Blood Count 6.1 K/mm3 (4.4-11.0)
--- NOTE | 2022-06-11 15:25 | RAD_ITS ---
STUDY: X-RAY CHEST REASON FOR EXAM: Female, 71 years old. Cough TECHNIQUE: Single AP portable view of the chest. COMPARISON: Comparison is made with prior study 01/21/2022. FINDINGS: Hyperinflation. Mild increased markings at the lung bases suggestive of linear atelectasis. Stable calcified granuloma in the right upper lobe. There is no demonstrated pleural abnormality. Normal size heart. Normal mediastinum and danii. Normal visualized pulmonary arteries. There is atherosclerotic calcification of the aortic arch with tortuosity. There are diffuse degenerative changes of the visualized thoracic spine. Normal visualized ribs, clavicles, and shoulders. Atherosclerotic calcification at the carotid bifurcations. There is no demonstrated abnormality of the visualized soft tissue structures of the upper abdomen. RAD/Chest 1 View (Portable) IMPRESSION: Hyperinflation. Mild increased markings at the lung bases suggestive of bibasilar atelectasis and/or scarring. Electronically Signed: Ethan Samuel MD at 15:37 EDT ,
[2022-06-11 15:26] LABS: Differential Indicated SCAN CRITERIA MET
[2022-06-11] MEDS: 0.9% Normal Saline 1,000 ML 150 ML IV (15:29)
[2022-06-11 15:35] LABS: Albumin, Serum 3.7 g/dL (3.2-5.0); BUN 20 mg/dL (7-18); BUN/Creat Ratio 15.6 RATIO (10-20); Creatinine, Serum 1.28 mg/dL (0.55-1.02); EST Glomerular Filtration Rate 44 mL/min (>60); Est Glom Filt Rate - Afr Amer 53 mL/min (>60); Estimated Creatinine Clearance 38.63 ml/min; Glucose 127 mg/dL (74-106); Protein, Total 7.7 g/dL (6.4-8.2)
[2022-06-11 15:36] LABS: AST(SGOT) 19 U/L (15-37); Alanine Aminotransfer ALT/SGPT 18 U/L (13-56); Alkaline Phosphatase 104 U/L (45-117); Anion Gap 6 (5-15); Bilirubin, Direct 0.13 mg/dL (0.00-0.30); Calcium,Total 9.4 mg/dL (8.5-10.1); Chloride 106 mmol/L (98-107); Potassium 4.4 mmol/L (3.5-5.1); Sodium Level 139 mmol/L (136-145)
[2022-06-11 16:26] LABS: Anisocytosis RARE; Macrocytosis RARE; Platelet Estimate ADEQUATE (ADEQ); Red Cell Morphology N CHROM NORMAL (NORM C&C)
[2022-06-11] MEDS: guaiFENesin/Codeine 5 ML UDC 10 ML PO (17:11)
[2022-06-11] MEDS: Ipratropium/Albuterol Sulfate 3 ML AMPUL.NEB INHALATION (17:15)
== END 2022-06-11 20:10 | disposition home or self-care (01) ==
PROVIDERS: Emergency Provider Emergency Medicine; PCP Nurse Practitioner Family; Visit Provider Emergency Medicine
DX: J06.9 Acute upper respiratory infection, unspecified (principal); F17.210 Nicotine dependence, cigarettes, uncomplicated; G47.30 Sleep apnea, unspecified; Z86.16 Personal history of COVID-19
CPT/HCPCS: 71045; 80048; 80076; 85025; 87633; 87811; 93005; 94640; 99285; J7030; A4216

== ENCOUNTER → 2022-06-30 | Outpatient (CLI) | payer MEDICARE, SELFPAY ==
--- NOTE | 2022-06-30 15:53 | RAD_ITS ---
STUDY: X-RAY CHEST REASON FOR EXAM: Female, 71 years old. DYSPNEA -- STAT TECHNIQUE: PA and lateral views of the chest. COMPARISON: 06/11/2022. FINDINGS: Densely calcified, stable granuloma in the right upper lobe. Emphysematous changes in the upper lobes. No change from prior. The lungs are otherwise clear and expanded. There is no demonstrated pleural abnormality. Normal size heart. Normal mediastinum and danii. Normal visualized pulmonary arteries. Normal visualized aortic arch and descending thoracic aorta. Normal visualized thoracic spine. Normal visualized ribs, clavicles, and shoulders. There is no demonstrated abnormality of the visualized soft tissue structures of the upper abdomen. RAD/Chest PA and Lateral IMPRESSION: No acute findings. COPD. Old healed granulomatous disease. Electronically Signed: Barbara Ni MD at 16:55 EDT Reading Location ID and State: [id number] / Tel , Service support ,
== END | disposition home or self-care (01) ==
LOC: MTRAD 15:51
PROVIDERS: PCP Nurse Practitioner Family; Visit Provider Internal Medicine Pulmonary Disease
DX: R06.00 Dyspnea, unspecified (principal)
CPT/HCPCS: 71046

== ENCOUNTER → 2022-07-02 | Outpatient (CLI) | payer MEDICARE, SELFPAY ==
[2022-07-02 15:37] LABS: Absolute Lymphocyte Count 1.15 X10^3/uL (0.83-4.51); Absolute Neutrophil Count 2.7 X10^3/uL (2.0-7.7); Basophil# 0.03 X10^3/uL; Basophil% 0.7 % (0-1); Eosinophil# 0.18 X10^3/uL; Eosinophils% 3.9 % (0-5); Hemoglobin 14.3 g/dL (12.0-15.0); Lymphocyte # 1.15 X10^3/ul (0.83-4.51); Lymphocyte % 25.2 % (19-41); Mean Corp Hgb Conc 33.3 g/dL (32-36); Mean Corpuscular Hgb 31.2 pg (27.0-32.0); Mean Corpuscular Volume 93.7 fL (81-99); Mean Platelet Vol. 9.5 fl (6.2-12.0); Monocyte# 0.49 X10^3/uL; Monocyte% 10.7 % (0-10); NRBC Flagged by Analyzer 0 % (0-5); Neutrophil % 59.3 % (47-70); Platelet Count 228 K/mm3 (150-450); RBC Distribution Width CV 13.8 % (11.6-14.6); RBC Distribution Width SD 46.8 fl (35.1-43.9); Red Blood Count 4.59 M/mm3 (4.2-5.4); White Blood Count 4.6 K/mm3 (4.4-11.0)
[2022-07-02 15:57] LABS: ALB/GLOB Ratio 1.3 RATIO (0.9-2.4); AST(SGOT) 12 U/L (15-37); Alanine Aminotransfer ALT/SGPT 15 U/L (13-56); Albumin, Serum 3.7 g/dL (3.2-5.0); Alkaline Phosphatase 93 U/L (45-117); Anion Gap 5 (5-15); BUN 20 mg/dL (7-18); Calcium,Total 8.8 mg/dL (8.5-10.1); Chloride 107 mmol/L (98-107); Creatinine, Serum 1.25 mg/dL (0.55-1.02); EST Glomerular Filtration Rate 45 mL/min (>60); Est Glom Filt Rate - Afr Amer 54 mL/min (>60); Globulin 2.9 g/dL (2.2-4.2); Glucose 91 mg/dL (74-106); Potassium 4.1 mmol/L (3.5-5.1); Protein, Total 6.6 g/dL (6.4-8.2); Sodium Level 142 mmol/L (136-145)
== END | disposition home or self-care (01) ==
LOC: LABSPEC 15:13
PROVIDERS: PCP Nurse Practitioner Family; Visit Provider Nurse Practitioner Family
DX: R10.31 Right lower quadrant pain (principal)
CPT/HCPCS: 80053; 85025

== ENCOUNTER → 2022-07-30 | Outpatient (CLI) | payer MEDICARE, SELFPAY ==
--- NOTE | 2022-07-30 14:06 | CT_ITS ---
EXAM: CT CHEST WITHOUT INTRAVENOUS CONTRAST CLINICAL INDICATION: Follow-up pulmonary nodule. TECHNIQUE: Helically acquired images were obtained of the chest without intravenous contrast. This CT exam was performed using one or more of the following dose reduction techniques: automated exposure control, adjustment of the mA and/or kV according to patient size, and/or use of iterative reconstruction technique. This report was created using [employer] report generation technology. RADIATION DOSE: CTDIvol = 10.65 mGy, DLP = 391.23 mGy-cm COMPARISON: CT chest without contrast 03/17/2022. Whole body PET/CT fusion scan 11/06/2021. FINDINGS: LUNGS AND PLEURAL SPACES: Noncalcified subpleural pulmonary nodule in the superior right lobe measures 1.5 x 1, previously 1.4 x 0.9 cm. This is a metabolically active pulmonary nodule on the PET/CT fusion scan of 11/07/2011. Minimal reticulation in the subpleural parenchyma of the right posterior lower lobe is unchanged. Centrilobular cysts in both lungs are unchanged. Mild pulmonary hyperinflation with flattening of the hemidiaphragms. Prominent calcified granuloma in the posterior segment of the right upper lobe is unchanged. No pneumothorax. HEART: Unremarkable. Heart size is normal. No pericardial effusion. No significant coronary artery calcifications. MEDIASTINUM: Unremarkable. No mediastinal or hilar adenopathy. Esophagus is unremarkable. No hiatal hernia. THYROID: Unremarkable. No thyroid lesions. BONES/JOINTS: Unremarkable. No suspicious lytic or blastic abnormality. VASCULATURE: Heavy calcifications along the thoracic aorta without thoracic aortic aneurysm or obvious dissection. Extensive calcified plaques are in the LAD branch. 6 mm lobulated anterior pericardial fluid is unchanged. Normal cardiac size. OPINION: 1. Probable metastatic subpleural pulmonary nodule in the superior segment of the right lower lobe measuring 1.5 x 1 cm, previously 1.4 x 0.5 cm. This pulmonary nodule is FDG avid on whole-body PET CT fusion scan of 3 05/20/2012. This pulmonary nodule is feasible for CT-guided biopsy. 2. Centrilobular cystic emphysema predominant type of COPD is unchanged. 3. 6 mm loculated anterior pericardial fluid is unchanged. Electronically Signed: Al Sofia MD at 16:11 EST , CT/Chest without Contrast IMPRESSION: undefined
== END | disposition home or self-care (01) ==
LOC: CT 14:05
PROVIDERS: PCP Nurse Practitioner Family; Referring Provider Internal Medicine Pulmonary Disease; Visit Provider Internal Medicine Pulmonary Disease
DX: R91.1 Solitary pulmonary nodule (principal)
CPT/HCPCS: 71250

== ENCOUNTER → 2022-08-01 | Outpatient (CLI) | payer MEDICARE, SELFPAY ==
--- NOTE | 2022-08-01 11:30 | MRI_ITS ---
STUDY: MRI BRAIN WITH AND WITHOUT CONTRAST REASON FOR EXAM: Female, 71 years old. Confusion X 2-3 MONTHS TECHNIQUE: Standardized multiplanar fat and water weighted pulse sequences were obtained. IV 14mL Clariscan was administered for the contrast portion of the examination. COMPARISON: CT head with and without contrast 02/05/2016. FINDINGS: Normal size of the ventricles and extra-axial spaces for the patient''s age. Normal white matter tracts of the supratentorial brain. Normal bilateral basal ganglia. Normal thalami. There is no extra-axial fluid accumulation. Normal flow voids within the major intracranial circulation suggesting patency by spin echo criteria. Normal venous enhancement. There is no enhancing intra-axial or extra-axial abnormality. Normal sella turcica, pituitary gland, infundibular stalk, optic chiasm and hypothalamus. Normal tectal plate and pineal gland. Normal midbrain, zaynab and medulla. Normal cerebellum. Normal basal cisterns. Normal bilateral temporal bones. Normal bilateral internal auditory canals. No demonstrated orbital abnormality, within the constraints of a routine brain study. Normal visualized paranasal sinuses. Normal calvarium and skull base. Normal visualized soft tissue structures. Normal visualized upper cervical spine. MRI/Brain W/WO Contrast IMPRESSION: 1. Normal unenhanced and enhanced MRI of the brain. 2. No interval change when compared to CT head with and without contrast 02/05/2016. Electronically Signed: Al Sofia MD at 14:46 EST ,
== END | disposition home or self-care (01) ==
LOC: MRI 11:11
PROVIDERS: PCP Nurse Practitioner Family; Referring Provider Nurse Practitioner Family; Visit Provider Nurse Practitioner Family
DX: R41.0 Disorientation, unspecified (principal)
CPT/HCPCS: 70553; A9575

== ENCOUNTER → 2022-09-23 | Outpatient (CLI) | payer MEDICARE, SELFPAY ==
[2022-09-23] VITALS (12 sets, daily range): BP systolic 94–161; BP diastolic 27–97; PULSE 55–65; RESP 16–21; TEMP 36.3; O2SAT 88–97; BMI 24.1
--- NOTE | 2022-09-23 | ASPIGT_PTH ---
PATIENT: MOISÉS PADILLA LOC: [place] U#:[id number] AGE/SX: 72/F ROOM: RE09/23/[address]: Dr. Francisco Huizar MD : 1950 BED: DIS: 09/23/2022 SPEC #: [id number] RECD: 09/23/22 11:15 STATUS: JACOB REQ #: [id number] TORIBIO: 09/23/22 00:[address]: Francisco Huizar V DEPT: SURGICAL PATHOLOGY RECD BY: Micah Crawley ENTERED: 09/23/22 11:15 SP TYPE: ASP RAD OTHR DR: Elizabeth Faustin, LAW REPORTER-C Tissues: Lung, NOS Procedures: FNA Specimen Adequacy Special Stain Group II Surgery Specimen Level IV Imprint (control) HEADER OPERATION: CT-guided right lung biopsy PRE-OP DIAGNOSIS: Right posterior lung mass TISSUE SUBMITTED: Right posterior lung mass 20-gauge core x5 MICROSCOPIC DIAGNOSIS Right posterior lung mass, CT-guided core biopsy: Atypical glandular proliferation high suspicious for adenocarcinoma. See comment. AM:prashant 09/26/2022 COMMENT The specimen is evaluated at the time of biopsy by Dr. Carlton. Immediate Evaluation = Rare atypical cells noted. Immunohistochemistry ([id number]) supports the above diagnosis. Case has been reviewed in consultation with Dr. Carlton who concurs with the above diagnosis. IDC:MEET MICROSCOPIC DESCRIPTION Slides are reviewed. GROSS DESCRIPTION Received in fixative is one container labeled with the patient's name and designated right lung. The specimen consists of multiple irregular fragments of vega soft tissue that in aggregate measure 1 x 0.1 x <0.1 cm. The specimen is totally submitted in one cassette. Two touch imprints are prepared at the time of core biopsy. / MEET:prashant 09/23/2022 TC:0 CPT: 40120, 34334
--- NOTE | 2022-09-23 | IMM_PTH ---
PATIENT: MOISÉS PADILLA LOC: CT U#:[id number] AGE/SX: 72/F ROOM: RE09/23/[address]: Dr. Francisco Huizar MD : 1950 BED: DIS: 09/23/2022 SPEC #: [id number] RECD: 09/24/22 14:26 STATUS: JACOB REQ #: [id number] TORIBIO: 09/23/22 00:[address]: Francisco Huizar V DEPT: IMMUNOHISTOCHEMISTRY RECD BY: Prema Hanson ENTERED: 09/24/22 14:27 SP TYPE: IMMUNO OTHR DR: Elizabeth Faustin, RECORDS ASSISTANT-C Tissues: Right lung, NOS Procedures: NAPSIN A (add) CK20 (add) CK7 (add) KI-67 (add) P53 (add) TTF1 (add) Pankeratin (initial) PHYSICIAN & INSTITUTION [place] [id number] SPECIMEN INFORMATION: Tissue Source: Right posterior lung mass Clinical Info: Right posterior lung mass Specimen Number: [id number] CPT code: 01522, 96313 x6 METHODOLOGY: Deparaffinized sections of prefer/formalin-fixed tissue or PAP/DQ stained slides are incubated with monoclonal/polyclonal antibodies/oligonucleotide probes. Localization is made via biotin free immunoperoxidase method. Appropriate controls are performed and reacted as expected. Results on target cell population are indicated in the following table: RESULTS: ANTIBODY / CLONE RESULT AE1-3 (AE1/AE3/PCK26) positive CK7 (OV-TL12/30) positive CK20 (KS20.8) negative TTF-1 (8G7G3/1) positive Napsin A (Rabbit Polyclonal) positive P53 (DO-7) negative Ki-67 (30-9) positive These tests were developed and their performance characteristics determined by [facility]. They may not have been cleared or approved by the U.S. Food and Drug Administration. The FDA has determined that such clearance or approval is not necessary. The above immunohistochemical/dualISH markers are ordered and reviewed by the Pathologist. INTERPRETATION: Right posterior lung mass, CT-guided biopsy: Atypical glandular proliferation high suspicious for adenocarcinoma. AM:prashant 09/26/2022
--- NOTE | 2022-09-23 09:00 | CT_ITS ---
PROCEDURE: CT GUIDED CORE NEEDLE BIOPSY OF A right lower lobe LUNG LESION INDICATION: Female, 72 years old. LUNG NODULE PHYSICIAN: Dr. SHAYE Solano CONSENT: Written informed consent was obtained having explained the risks, benefits and alternatives in detail with the patient who accepted the risks and agreed to proceed. Laboratory review and clinical assessment was performed. CONSCIOUS SEDATION PROTOCOL: The Drugs used were: 2 mg Versed, IV., and 50 mcg Fentanyl, IV. The sedation time was: 27 minutes. Conscious sedation was started at 9:56 AM and terminated at 10:23 AM. The conscious sedation protocol was independently monitored. RADIATION DOSAGE (If Supplied By Facility): CTDIvol = ( 25 ) mGy, DLP = ( 617.54 ) mGycm Individualized dose optimization techniques were used for this CT. TECHNIQUE: The patient was placed in the frontal position. A noncontrast CT was performed to localize the lesion in the pleural-based nodule in the posterior right lower lobe. . The skin surface was prepped and draped in a sterile fashion. 1% lidocaine was used for local anesthesia. Using CT guidance, a 20-gauge coaxial biopsy device was advanced to the periphery of the lesion. A total of 5 core specimens were obtained. The specimens were placed in a formalin solution. A post procedure CT demonstrated no adverse sequelae or pneumothorax. The patient tolerated the procedure well without adverse event. A negative biopsy does not exclude malignancy. Further imaging or clinical followup based on patient condition and degree of clinical suspicion for malignancy. Suggest rebiopsy, if biopsy results do not match with clinical scenario. CT/Biopsy/Inj or Needle Placement IMPRESSION: 1. CT directed core needle biopsy of the right lower lobe lung nodule using CT image guidance with image documentation as described. Pathology results are pending. 2. Conscious Sedation protocol utilized with independent monitoring. Electronically Signed: Ethan Samuel MD at 11:04 [facility] ,
[2022-09-23 09:14] LABS: Platelet Count 190 K/mm3 (150-450)
[2022-09-23 09:27] LABS: Partial Thromboplast Time 24.1 Seconds (24.1-36.2)
[2022-09-23] MEDS: 0.9% Saline Lock 10 ML Syringe IV (09:30)
[2022-09-23] MEDS: fentaNYL 100 MCG/2 ML Ampul IV (09:56)
[2022-09-23] MEDS: Midazolam 2 MG/2 ML Syringe IV (09:57)
[2022-09-23] MEDS: Lidocaine 2% (20 ml mdv) 20 ML Vial INFILT (10:15)
--- NOTE | 2022-09-23 10:30 | RAD_ITS ---
STUDY: X-RAY CHEST REASON FOR EXAM: Female, 72 years old. Post lung biopsy -- Immediately post lung biopsy TECHNIQUE: AP inspiration and expiration views. COMPARISON: Comparison is made with prior study 06/30/2022. FINDINGS: There is no evidence of pneumothorax on the immediate post right lung biopsy radiographs. RAD/Chest Insp/Exp 2 View IMPRESSION: No evidence of pneumothorax on the immediate post right lung biopsy radiographs. Electronically Signed: Ethan Samuel MD at 11:20 EST ,
[2022-09-23] MEDS: Acetaminophen 325 MG Tablet 650 MG PO (11:41)
--- NOTE | 2022-09-23 11:43 | NURSING ---
pt medicated with tylenol for c/o h/a. denies further needs
--- NOTE | 2022-09-23 12:30 | RAD_ITS ---
STUDY: X-RAY CHEST REASON FOR EXAM: Female, 72 years old. Post lung biopsy -- 2 hours post lung biopsy TECHNIQUE: AP inspiration and expiration views. COMPARISON: Comparison is made with prior study done earlier today. FINDINGS: No evidence of pneumothorax on the 2 hour post right lung biopsy radiographs. RAD/Chest Insp/Exp 2 View IMPRESSION: No evidence of pneumothorax on the 2 hour post right lung biopsy radiographs. Electronically Signed: Ethan Samuel MD at 13:06 EST ,
== END | disposition home or self-care (01) ==
PROVIDERS: PCP Nurse Practitioner Family; Referring Provider Internal Medicine Pulmonary Disease; Visit Provider Internal Medicine Pulmonary Disease
DX: R91.1 Solitary pulmonary nodule (principal); Z79.01 Long term (current) use of anticoagulants
CPT/HCPCS: 32408; 36415; 71046; 77012; 85049; 85610; 85730; 88172; 88305; 88313; 88341; 88342; 99156; J7050; A4216; C2613

== ENCOUNTER → 2023-01-06 | Outpatient (CLI) | payer MEDICARE, SELFPAY ==
[2023-01-06 16:41] LABS: AST(SGOT) 21 U/L (15-37); Alanine Aminotransfer ALT/SGPT 20 U/L (13-56); Albumin, Serum 3.8 g/dL (3.2-5.0); Alkaline Phosphatase 93 U/L (45-117); Bilirubin, Direct 0.08 mg/dL (0.00-0.30); Globulin 3.5 g/dL (2.2-4.2); Lipase 77 U/L (13-75); Protein, Total 7.3 g/dL (6.4-8.2)
== END | disposition home or self-care (01) ==
LOC: LAB 15:52
PROVIDERS: PCP Nurse Practitioner Family; Referring Provider Internal Medicine Gastroenterology; Visit Provider Internal Medicine Gastroenterology
DX: R10.9 Unspecified abdominal pain (principal); R11.0 Nausea
CPT/HCPCS: 36415; 80076; 83690

== ENCOUNTER → 2023-09-09 | Outpatient (CLI) | payer MEDICARE, SELFPAY ==
--- NOTE | 2023-09-09 13:33 | BI_ITS ---
MAMMOGRAPHY - BILATERAL SCREENING REASON FOR EXAM: Female, 73 years old. Routine annual screening examination. PERTINENT HISTORY: Non-contributory. TECHNIQUE: Digital bilateral breast emerson (3D mammographic acquisition) in the CC and MLO projections. 2-D mediolateral oblique (MLO) and craniocaudad (CC) views of both breasts were obtained. CAD: Full Field Digital Mammography with Computer Added Detection was performed. COMPARISON: Comparison is made with prior study dated January 24, 2021 and January 26, 2020. FINDINGS: Breast Composition: The breasts are heterogeneously dense, which may obscure small masses. There are no dominant masses or suspicious calcifications. Stable fat-containing bilateral axillary lymph nodes. No other significant abnormalities are identified. There has been no significant change since the prior study. BI/SCRN MAMM (CAD)W/EMERSON BILAT IMPRESSION: Stable bilateral screening mammogram. Yearly follow-up mammogram recommended. (A) ASSESSMENT CATEGORY: BIRADS Category 2: Benign. A letter regarding these results will be sent to the patient by the facility within 30 days. Approximately 10% of breast cancers are not detected by mammography. A normal mammogram should not delay biopsy of a clinically suspicious abnormality. [id number] Electronically Signed: Ethan Samuel MD at 14:25 EST ,
--- NOTE | 2023-09-09 13:36 | BD_ITS ---
STUDY: DUAL ENERGY X-RAY ABSORPTIOMETRY / DXA REASON FOR EXAM: Female, 73 years old. [id number] TECHNIQUE: Bone Mineral Density (BMD) measurements of lumbar spine and bilateral hips were obtained. COMPARISON: Comparison is made with prior study July 21, 2018. FINDINGS: Lumbar Spine (L1-L4): g/cm2 (1.011) / T-score (-0.1) / Z-score (2.2) Findings are suggestive of normal bone density with a low fracture risk. Left Femur Total: g/cm2 (0.817) / T-score (-1.0) / Z-score (0.7) Left Femoral Neck: g/cm2 (0.626) / T-score (-2.0) / Z-score (0.0) Right Femur Total: g/cm2 (0.762) / T-score (-1.5) / Z-score (0.3) Right Femoral Neck: g/cm2 (0.637) / T-score (-1.9) / Z-score (0.1) The T-Scores on the most recent prior examination were: Lumbar Spine (L1-L4): There has been improvement of bone density since the previous examination. Left Femur Total: which represents a worsening of 5.8%. Right Femur Total: which represents a worsening of 10.1%. BD/Dexa Bone Density Study IMPRESSION: The patient is considered osteopenic as outlined below according to World Vini Organization (WHO) criteria with a moderate fracture risk. There has been worsening of bone density since the previous examination. Reference Information: The T-score is the number of standard deviations above or below the standard which is normal for young adults at their peak bone mineral density. The World Health Organization (WHO) interprets the T-scores as follows: Above -1 Normal bone density Between -1 and -2.5 Osteopenia Equal to / or below -2.5 Osteoporosis As a practical clinical guideline, osteopenia may be graded as follows: Mild -1 through -1.5 Moderate -1.6 through -2.0 Severe -2.1 through -2.4 The Z-score is the number of standard deviations above or below age-matched controls. A Z-score of less than -1.5 would be considered abnormal. References: 1. NIH Osteoporosis and Related Bone Diseases www osteo.org 2. International Society for Clinical Densitometry www iscd.org 3. National Osteoporosis Foundation www nof.org Electronically Signed: Ethan Samuel MD at 14:40 EST ,
== END | disposition home or self-care (01) ==
LOC: OPBD 13:31
PROVIDERS: PCP Nurse Practitioner Family; Referring Provider Nurse Practitioner Family; Visit Provider Nurse Practitioner Family
DX: Z12.31 Encounter for screening mammogram for malignant neoplasm of breast (principal); Z78.0 Asymptomatic menopausal state
CPT/HCPCS: 77063; 77067; 77080

== ENCOUNTER → 2025-04-05 | Outpatient (CLI) | payer MEDICARE, SELFPAY ==
[2025-04-05 16:53] LABS: Hematocrit 43.9 % (37-47); Hemoglobin 14.6 g/dL (12.0-15.0); Immature Granulocytes Count 0.030 X10^3/uL (0.0-0.0); Mean Corp Hgb Conc 33.3 g/dL (32-36); Mean Corpuscular Volume 92.0 fL (81-99); Mean Platelet Vol. 9.6 fl (6.2-12.0); NRBC Flagged by Analyzer 0 % (0-5); Platelet Count 227 K/mm3 (150-450); RBC Distribution Width CV 12.5 % (11.6-14.6); RBC Distribution Width SD 42.7 fl (35.1-43.9); Red Blood Count 4.77 M/mm3 (4.2-5.4); White Blood Count 5.6 K/mm3 (4.4-11.0)
[2025-04-05 17:33] LABS: AST(SGOT) 21 U/L (<=31); Alanine Aminotransfer ALT/SGPT 9 U/L (<=34); Albumin, Serum 4.4 g/dL (3.4-4.8); Alkaline Phosphatase 102 U/L (35-104); Anion Gap 12 (5-15); BUN 24 mg/dL (4-19); BUN/Creat Ratio 15.6 RATIO (10-20); Bilirubin, Direct 0.12 mg/dL (0.00-0.30); Calcium,Total 9.4 mg/dL (7.6-11.0); Carbon Dioxide 24.5 mmol/L (21.0-32.0); Chloride 103 mmol/L (98-108); Globulin 2.6 g/dL (2.2-4.2); Glucose 141 mg/dL (70-99); Potassium 4.3 mmol/L (3.3-5.1)
[2025-04-10 14:08] LABS: Vitamin D 1,25-Dihydroxy 47.6 pg/mL (24.8-81.5)
== END | disposition home or self-care (01) ==
LOC: LAB 16:04
PROVIDERS: PCP Nurse Practitioner Family; Referring Provider Physician Assistant Medical; Visit Provider Physician Assistant Medical
DX: R53.83 Other fatigue (principal)
CPT/HCPCS: 36415; 80053; 82248; 82652; 84443; 85025

== ENCOUNTER → 2025-06-12 | Outpatient (CLI) | payer MEDICARE, SELFPAY ==
[2025-06-12 18:20] LABS: Vitamin B12 646 pg/mL (180-914)
== END | disposition home or self-care (01) ==
LOC: MTLAB 16:40
PROVIDERS: PCP Nurse Practitioner Family; Referring Provider Internal Medicine; Visit Provider Internal Medicine
DX: R41.3 Other amnesia (principal)
CPT/HCPCS: 36415; 82607

== ENCOUNTER → 2025-07-12 | Outpatient (CLI) | payer MEDICARE, SELFPAY ==
[2025-07-12 13:00] VITALS: PULSE 63; PULSE 78; PULSE 80; PULSE 81; PULSE 84; PULSE 85; O2SAT 92; O2SAT 93; O2SAT 94; O2SAT 96; O2SAT 97
--- NOTE | 2025-07-14 11:06 | PCM.PSN.6M ---
PSN 6 Minute Walk Test 6 Minute Walk Test 6 Minute Walk Test: 6 Minute Walk Test PSN:6-Minute Walk Test Start: 07/12/25 13:20 Freq: Status: Active Protocol: [id number] Document 07/12/25 13:00 AEH (Rec: 07/12/25 13:24 AEH [email or web address]) 6 Minute Walk Test Date Performed 07/12/25 Time Performed 13:00 Height 5 ft 7 in Weight: 140 lb Weight in Pounds 140.[address]: Andrés Assistive device None used: Pre-test Oxygen Delivery Room Air Method Pulse Ox (%) 97 Pulse Rate (60-100 63 beats/min) Dyspnea Angelo Scale ( 0 0-10) Exertion Angelo Scale 6 (6-20) 1st minute Oxygen Delivery Room Air Method Pulse Ox (%) 92 Pulse Rate (60-100 81 beats/min) 2nd minute Oxygen Delivery Room Air Method Pulse Ox (%) 93 Pulse Rate (60-100 80 beats/min) 3rd minute Oxygen Delivery Room Air Method Pulse Ox (%) 93 Pulse Rate (60-100 85 beats/min) 4th minute Oxygen Delivery Room Air Method Pulse Ox (%) 94 Pulse Rate (60-100 84 beats/min) 5th minute Oxygen Delivery Room Air Method Pulse Ox (%) 94 Pulse Rate (60-100 78 beats/min) 6th minute Oxygen Delivery Room Air Method Pulse Ox (%) 94 Pulse Rate (60-100 78 beats/min) Dyspnea Angelo Scale ( 0 0-10) Exertion Angelo Scale 11 (6-20) Post-test Oxygen Delivery Room Air Method Pulse Ox (%) 96 Pulse Rate (60-100 63 beats/min) Full Laps Walked 20 Partial Lap, Number 19 of Tiles Walked Total Distance 1199 Walked (ft) Interpretation Interpretation: The patient ambulated 1199 feet over the course of 6 minutes beginning on room air without assistive devices. Pretesting oxygen saturation was noted to be 97% on room air. With ambulation, the jacqueline oxygen saturation was 92%. This represents a significant exertional oxygen desaturation, consistent with a pulmonary limitation to exercise tolerance. Recommendations Recommendations: There is no indication for the use of supplemental oxygen at this time.
== END | disposition home or self-care (01) ==
LOC: PSN 12:42
PROVIDERS: PCP Nurse Practitioner Family; Referring Provider Internal Medicine; Visit Provider Internal Medicine
DX: J44.9 Chronic obstructive pulmonary disease, unspecified (principal)
CPT/HCPCS: 94618

== ENCOUNTER → 2025-07-14 | Outpatient (CLI) | payer MEDICARE, SELFPAY ==
--- NOTE | 2025-07-14 14:15 | CT_ITS ---
PROCEDURE: BRAIN/HEAD WITHOUT CONTRAST 07/14/2025 REASON FOR EXAM: MEMORY IMPAIRMENT TECHNIQUE: Procedure Code: CTBR Modality: CT Procedure: BRAIN/HEAD WITHOUT CONTRAST Coronal and Sagittal reconstruction series were provided. One or more dose reduction techniques were used (e.g., Automated exposure control, adjustment of the mA and/or kV according to patient size, use of iterative reconstruction technique. RADIATION DOSE SUMMARY: CTDlvol: 44.99 mGy DLP: 762.36 mGycm COMPARISON: MRI brain with and without contrast, 08/01/2022. 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 There is patchy low-density of the periventricular white matter consistent with chronic ischemic white matter disease. There is no evidence of acute intracranial hemorrhage or infarction. There are no abnormal intracranial masses or mass effects. The ventricular system and basilar cisterns are unremarkable. The skull base and calvarium are normal. There is nasal septal deviation to the right. The paranasal sinuses and mastoid air cells are unremarkable. Status post bilateral intra-ocular lens implants. The intraorbital contents are otherwise unremarkable. The visualized extracranial soft tissues are normal. CT/Brain/Head without Contrast IMPRESSION: 1. No evidence of acute intracranial pathology. 2. Other findings as noted. Reading Location: [place] [id number]
== END | disposition home or self-care (01) ==
LOC: CT 14:00
PROVIDERS: PCP Nurse Practitioner Family; Referring Provider Internal Medicine; Visit Provider Internal Medicine
DX: R41.3 Other amnesia (principal)
CPT/HCPCS: 70450